=== PATIENT | male | born 1945 | race Caucasian/White ===

== ENCOUNTER 2018-08-09 11:35 | Emergency (ER) | payer MEDICARE, MEDICAID ==
[~2018-08-09] VITALS: Ht 188 cm; Wt 77.1 kg
[~2018-08-09 11:35] MED LIST: CYCLOBENZAPRINE10 MG PO; NORCO 5-325 TA1 EACH PO
[2018-08-09] MEDS ORDERED: ASPIRIN81 MG PO (11:50)
[2018-08-09] MEDS ORDERED: NITROSTAT0.4 MG SL (11:50)
[2018-08-09] MEDS ORDERED: ROBAFEN AC ORA473 ML PO (12:38)
[2018-08-09] MEDS ORDERED: DELTASONE20 MG PO (12:38)
[2018-08-09] MEDS ORDERED: LEVAQUIN500 MG PO (12:38)
[2018-08-09] MEDS ORDERED: VENTOLIN HFA18 GM INH (12:38)
--- NOTE | 2018-08-09 15:52 | EKG ---
[facility] [address] [place], [place] [address] Signed Normal sinus rhythm Right atrial enlargement Borderline ECG No previous ECGs available Confirmed by SAVI HERNDON DO ([id number]) on 08/09/2018 3:51:49 PM Electronically Signed By: SAVI HERNDON DO 08/09/18 1552 PATIENT NAME: RAMOS SANTOS Electrocardiogram DATE OF : 43 PHYSICIAN: SAVI HERNDON DO REPORT #: [id number] REPORT IS CONFIDENTIAL AND NOT TO BE RELEASED WITHOUT AUTHORIZATION
== END 2018-08-09 13:00 | disposition home or self-care (01) ==
LOC: ED 11:35
DX: J44.1 Chronic obstructive pulmonary disease with (acute) exacerbation (principal); F17.200 Nicotine dependence, unspecified, uncomplicated; Z79.82 Long term (current) use of aspirin
CPT/HCPCS: 71045; 80053; 84484; 85025; 93005; 93010; 94640; 99285

== ENCOUNTER 2020-04-08 12:58 | Emergency (ER) | payer MEDICARE ==
[~2020-04-08] VITALS: Ht 188 cm; Wt 77.1 kg
[~2020-04-08 12:58] MED LIST changes: +ASPIRIN81 MG PO; +DELTASONE20 MG PO; +LEVAQUIN500 MG PO; +NITROSTAT0.4 MG SL; +ROBAFEN AC ORA473 ML PO; +VENTOLIN HFA18 GM INH
--- NOTE | 2020-04-08 13:56 | EKG ---
[facility] [address] [place], [place] [address] Signed Normal sinus rhythm Normal ECG When compared with ECG of 09-AUG-2018 11:37, ST elevation now present in Inferior leads Confirmed by FELICIANO STRICKLAND MD ([id number]) on 04/08/2020 1:56:19 PM Electronically Signed By: FELICIANO STRICKLAND MD 04/08/20 1356 PATIENT NAME: RAMOS SANTOS Electrocardiogram DATE OF : 43 PHYSICIAN: FELICIANO STRICKLAND MD REPORT #: [id number] REPORT IS CONFIDENTIAL AND NOT TO BE RELEASED WITHOUT AUTHORIZATION
== END 2020-04-08 16:37 | disposition home or self-care (01) ==
LOC: ED 12:58
DX: R53.1 Weakness (principal); F17.200 Nicotine dependence, unspecified, uncomplicated; Z79.899 Other long term (current) drug therapy; Z79.82 Long term (current) use of aspirin
CPT/HCPCS: 80053; 84484; 85025; 93005; 93010; 96360; 99285-25; J7040

== ENCOUNTER 2020-11-30 10:04 | Inpatient (IN) | payer MEDICARE, MEDICAID ==
[~2020-11-30] VITALS: Ht 188 cm; Wt 75.2 kg
[2020-11-30] MEDS ORDERED: ISOSORBIDE MONO30 MG PO (12:59)
[2020-11-30] MEDS ORDERED: LISINOPRIL5 MG PO (12:59)
[2020-11-30] MEDS ORDERED: ATORVASTATIN CA20 MG PO (12:59)
[2020-11-30] MEDS ORDERED: AZITHROMYCIN250 MG PO (13:00)
[2020-11-30] MEDS ORDERED: VENTOLIN HFA18 GM INH (13:00)
--- NOTE | 2020-11-30 13:06 | NUR ---
COVID SAMPLE OBTAINED NO COMPLICATIONS, SENT TO [facility]
[2020-11-30] MEDS ORDERED: PREDNISONE20 MG PO (13:08)
[2020-11-30] MEDS ORDERED: ATORVASTATIN CA40 MG PO (13:09)
--- NOTE | 2020-11-30 13:15 | NUR ---
PT ARRIVED TO THE FLOOR AROUND THIS TIME. PT ABLE TO STAND PIVOT TO THE BED FROM ER STRETCHER. PT HAS CHEST TUBE IN PLACE AND APPEARS TO BE CLEAN/ DRY INTACT WITH NO CREPITUS NOTED.
--- NOTE | 2020-11-30 14:35 | NUR ---
THIS RN IN PTS ROOM TO PROVIDE PT WITH 1000MG OF TYLENOL AT THIS TIME FOR PTS PAIN 8/10 IN HIS LEFT CHEST. THIS RN TOOK VITALS, INSPECTED PTS CHEST TUBE, ALL TUBING CONNECTED PROPERLY AND NO CREPITUS NOTED IN OR AROUND INSETION SITE
--- NOTE | 2020-11-30 14:56 | NUR ---
Spoke with Sarbjit, who is very pleasant considering new chest tube placement. He lives with his son, daughter in law, and grandchild. He denies use of DME and plans on dc to his home when cleared by Dr. Salas.
[2020-11-30] MEDS ORDERED: MULTI VITAMIN1 EACH PO (15:02)
[2020-11-30] MEDS ORDERED: ASPIR-TRIN325 MG PO (15:02)
--- NOTE | 2020-11-30 15:04 | NUR ---
MED REC COMPLETE
--- NOTE | 2020-11-30 16:29 | EKG ---
[facility] [address] [facility] [place], [place] [address] Signed Normal sinus rhythm Normal ECG When compared with ECG of 08-APR-2020 13:21, No significant change was found Confirmed by SAVI HERNDON DO ([id number]) on 11/30/2020 4:29:11 PM Electronically Signed By: SAVI HERNDON DO 11/30/20 1629 PATIENT NAME: RAMOS SANTOS Electrocardiogram DATE OF : 43 PHYSICIAN: SAVI HERNDON DO REPORT #: [id number] REPORT IS CONFIDENTIAL AND NOT TO BE RELEASED WITHOUT AUTHORIZATION
--- NOTE | 2020-11-30 17:00 | NUR ---
THIS RN CALLED INTO PTS ROOM DUE TO PT HAVING INCREASED PAIN. THIS RN ASSESSED PTS CHEST TUBE TRAY AND SUCTION. THIS RN ASSESSED INSERTION SITE AND THOUGHT THAT PTS LEFT CHEST APPEARED TO BE SLIGHTLY SWOLLEN. THIS RN CALLED KORI CARCAMO INTO ROOM. KORI CARCAMO CALLED POULTRY BONER MURIEL CARCAMO AND KARISSA CARCAMO. ALL 4 RN'S INSPECTED SITE AND LISTENED TO PTS LUNGS.
--- NOTE | 2020-11-30 17:15 | NUR ---
THIS RN TO CALL TO GIVE HIM AN UPDATE ON PTS STATUS. GAVE THIS RN VERBAL ORDERS OVER THE PHONE TO GIVE PT PERCOCET 1-2 TABS 7.5/325 Q6 PRN.
--- NOTE | 2020-11-30 18:56 | NUR ---
THIS RN IN PTS ROOM TO REASSESS PTS PAIN. PT STATES THAT HE IS FELEING MUCH BETTER AT THIS TIME AFTER 1 PERCOCET.
--- NOTE | 2020-11-30 21:06 | NUR ---
PATIENT GIVEN 4MG PO DILAUDID FOR LEFT CHEST PAIN FROM CHEST TUBE, PAIN 8/10. NO SQ EMPHYSEMA NOTED, DRESSING DRY AND INTACT, CHEST TUBE BUBBLING AND REMAINS AT 80 ON WALL SUCTION. PATIENT REMAINS ON 2L/NC. WATER REFILLED AND PATIENT HAS NO OTHER NEEDS AT THIS TIME. CALL LIGHT IN REACH.
--- NOTE | 2020-11-30 22:27 | NUR ---
PATIENT WAS AWAKWE IN BED WHEN I ENTERED ROOM. VITALS AND I&O DONE. CALL LIGHT IN REACH. FRESH WATER REQUESTED AND GIVEN. DENIES ANY FURTHER NEEDS AT THIS TIME.
--- NOTE | 2020-11-30 23:00 | NUR ---
PATIENT RESTING QUIETLY IN FOWLERS POSITION, SATS 99% ON 2L/NC WITH A HR OF 58. PATIENT'S RESPIRATIONS ARE REGULAR AND EQUAL, EYES ARE CLOSED, CALL LIGHT IN REACH.
--- NOTE | 2020-12-01 01:00 | NUR ---
PATIENT CONTINUES TO REST QUIETLY, APPEARS IN NO DISTRESS, O2 SATS 100% ON 2L/NC, CHEST TUBE SITE C/D/I, RESPIRATIONS ARE EQUAL AND REGULAR, HR=56, CALL LIGHT IS IN REACH.
--- NOTE | 2020-12-01 02:23 | NUR ---
ASSISTED DONA HERNANDEZ. V/S AND I&O CHARTED BY DONA HERNANDEZ.
--- NOTE | 2020-12-01 02:29 | NUR ---
PATIENT GIVEN 4MG PO DILAUDID FOR LEFT CHEST PAIN 05/28. PATIENT HAS BEEN SLEEPING SINCE THE LAST DOSE OF DILAUDID AND JUST WOKE UP. PATIENT'S VITALS REMAIN STABLE. CALL LIGHT IS IN REACH.
--- NOTE | 2020-12-01 03:35 | NUR ---
PATIENT RESTING QUIETLY IN SEMI-FOWLERS POSITION, RESPIRATIONS REGULAR AND EVEN, EYES CLOSED, SATS 99% ON 2L/NC AND HR=58, CALL LIGHT IS IN REACH.
--- NOTE | 2020-12-01 05:22 | NUR ---
PATIENT'S PAIN IS AT 4/10 AND HE SAYS HE DOES NOT NEED PAIN MEDICATION JUST YET AND WILL CALL WHEN HE NEEDS IT. PATIENT HAS NO OTHER NEEDS AT THIS TIME. CALL LIGHT IN REACH.
--- NOTE | 2020-12-01 06:14 | NUR ---
PATIENT JUST GOT HIS MORNING CHEST X-RAY. PATIENT'S PAIN HAS REMAINED FAIRLY WELL CONTROLLED WITH MEDICATION THROUGH THE NIGHT, PATIENT HAS HAD 2 4MG TABS OF DILAUDID AND JUST HAD 1 PERCOCET FOR 7/10 LEFT CHEST PAIN. PATIENT IS DRINKING FLUIDS WELL AND VOIDING PER URINAL WITHOUT DIFFICULTY. CHEST TUBE REMAINS SECURED WITH 80 OF WALL SUCTION ATTACHED TO DRAINAGE DEVICE. PATIENT IS IN GOOD SPIRITS, ICE BAG REFILLED WITH ICE AND ICE WATER REFILLED WELL. NO OTHER NEEDS AT THIS TIME. CALL LIGHT IN REACH.
--- NOTE | 2020-12-01 09:15 | NUR ---
IN TO ASSESS PT THIS AM. PT AWAKE IN BED. REPORTS PAIN HAS DECREASED W/ PERCOCET @ 0600. PT REPORTS 4/10 DULL PAIN AT CHEST TUBE INSERTION SITE. VSS. LUNG SOUNDS DIMINISHED THROUGHOUT. WATER SEAL CHAMBER HAS SLOW BUBBLE. CHEST TUBE INSERTION SITE DRSG IS INTACT. IN BED EATING BREAKFAST AND CALL LIGHT IS IN REACH.
--- NOTE | 2020-12-01 11:00 | NUR ---
FARIBA RN IN TO MEDICATE PT C/O 05/28 PAIN AT CHEST TUBE INSERTION SITE. RN REPORTS PERCOCET WAS GIVEN.
--- NOTE | 2020-12-01 11:38 | NUR ---
this rn notified by pts son that pt was having some increased pain. this rn in pts room to assess pts pain level. pt states that his pain is 7/10. this rn discussed with pt that he could have percocet or diluadid or both at this time. pt stated that he wants to try 1 percocet at this time. this rn provided pt with a pillow under pts left arm to assist with holding his ice pack in place. pt states that he needs nothing else at this time. rn educated pt that he can call if the pain gets intolerable for the dialudid.
--- NOTE | 2020-12-01 13:04 | NUR ---
PT UP IN CHAIR. REPORTS PAIN IS MANAGEABLE AT THIS TIME, RATES IT 4/10. LUNG SOUNDS ARE DIMINISHED THROUGHOUT, PT SATING 99% ON 2 L NC. CALL LIGHT IN REACH.
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
--- NOTE | 2020-12-01 13:07 | OR ---
[facility] [address] [place], [place] [address] Signed DATE OF OPERATION: 11/30/2020 SURGEON: Zach Rico MD PREOPERATIVE DIAGNOSIS: Left-sided pneumothorax, associated with emphysema. POSTOPERATIVE DIAGNOSIS: Left-sided pneumothorax, associated with emphysema. PROCEDURE: Left chest tube placement. ANESTHESIA: Lidocaine 1%. INDICATIONS: This 75-year-old white man has emphysema and is patient of Dr. Cesar, was found on the outpatient chest x-ray to have a moderate-sized left-sided pneumothorax. He was sent to the emergency room, evaluated by Dr. Dsouaz in consultation, undertaken for chest tube placement and further management. The patient is not currently in extreme dyspnea, does have mild dyspnea and episodic cough. The risks of bleeding, infection, parenchymal injury to lung, failure to cure the problem, need for other indicated procedure, and so forth were all reviewed in detail. He understands and wished to proceed. FINDINGS: The pleural space was entered and a small chest tube was placed. A considerable amount of air leakage was noted initially left so later. A postprocedure chest x-ray shows good expansion of the lung without sign of complication. DESCRIPTION OF PROCEDURE: In the semi-erect position, the left arm was placed over the head and the left chest wall prepared with a Betadine solution and draped sterilely. Sterile gloves and gown and so forth were used as per protocol. Inferior and lateral to the left nipple, sixth rib was identified and 1% lidocaine injected directly over it and a bit on the top of it. The pleural space was anesthetized too. An aspiration on the syringe did show some air bubbles consistent with a left-sided pneumothorax. A small incision was made at the upper border of the rib with a #15 blade and using an introducer kit, a needle passed into the pleural space and subsequently a flexible wire. A dilator, and subsequently dilator and peel-away introducer were passed over the wire. The dilator and wire were Electronically Signed By: ZACH RICO MD 12/01/20 1307 PATIENT NAME: RAMOS SANTOS OPERATIVE REPORT DATE OF : 43 REPORT #: [id number] PHYSICIAN: ZACH RICO MD PCP: JARVIS CESAR MD REPORT IS CONFIDENTIAL AND NOT TO BE RELEASED WITHOUT AUTHORIZATION [facility] [address] [place], [place] [address] Signed removed. I previously inspected 12-Uzbek chest tube was passed through the peel-away introducer and was manipulated into the pleural space without prominent introducer removed. A mini Chinle tree was applied to the chest tube and the catheter secured to the skin with a 2-0 nylon suture. A fair amount of air was noted in the Pleur-evac device, which soon decreased and only episodically shows an air leak. The tube was secured to the Chinle tree with a zip tie as it was to the chest tube device. A small gauze was placed and OpSite dressings applied and pink tape inferiorly to provide two point tethering of the device. A postprocedure chest x-ray showed good expansion of the lung. No evidence of residual pneumothorax. No complication. Clinically, he felt much better. He will be admitted for further management. Zach Rico MD JM/MODL /[id number] cc: MD Eze Triplett MD Cynthia Sue Holmes, MD Copies: EZE DSOUZA MD, CYNTHIA SUE MD ~ Electronically Signed By: ZACH RICO MD 12/01/20 1307 PATIENT NAME: RAMOS SANTOS OPERATIVE REPORT DATE OF : 43 REPORT #: [id number] PHYSICIAN: ZACH RICO MD PCP: JARVIS CESAR MD REPORT IS CONFIDENTIAL AND NOT TO BE RELEASED WITHOUT AUTHORIZATION
--- NOTE | 2020-12-01 14:00 | NUR ---
Stopped to see pt, he is sleeping.
--- NOTE | 2020-12-01 14:21 | NUR ---
PT ALERT, ORIENTED AND RESPONDING TO TREATMENT. SON KELLIE IN VISITING WITH PT HAD GOOD VISIT, PT STATED HE FELT INFORMED AND WELL CARED FOR. PT REQUESTED PRAYER. LEFT G.POST AND WILL FOLLOW
--- NOTE | 2020-12-01 14:43 | NUR ---
PATIENT AWAKE IN CHAIR, VITALS AND I&OS CHARTED. FRESH ICE WATER PROVIDED. CALL LIGHT WITHIN REACH, NO OTHER NEEDS AT THIS TIME.
--- NOTE | 2020-12-01 15:30 | NUR ---
AMBULATED [place] X3 TODAY. PT TOLERATING WELL. PREMEDICATED W/ DILAUDID 4 MG PO. LUNG SOUNDS DIMINISHED THROUGHOUT. NO ACUTE CHANGES. SLIGHT BUBBLING IN WATER SEAL CHAMBER. PT UP IN CHAIR THROUGHOUT AFTERNOON. SON FREQUENTLY IN TO VISIT. PT IS EATING AND DRINKING WELL.
--- NOTE | 2020-12-01 18:30 | NUR ---
AMBULATED LARGE LOOP W/ PT AFTER PREMEDICATING W/ PERCOCET. TOLERATED MODERATELY WELL. SLIGHTLY SOB TOWARDS END OF ACTIVITY. RECOVERED QUICKLY. PT HAS BEEN ON ROOM AIR SINCE THIS MORNING. SATING MID-HIGH 90'S ON ROOM AIR. ICE PACK FOR ADDITIONAL PAIN TO LEFT SIDE. CHEST TUBE TO SUCTION AT 80 MMHG CONTINUOUS. IN BED FOR EVENING, NO OTHER NEEDS AT THIS TIME.
--- NOTE | 2020-12-01 18:30 | NUR ---
PATIENT AWAKE IN CHAIR, VITALS AND I&OS CHARTED. NO OTHER NEEDS AT THIS TIME
--- NOTE | 2020-12-01 19:20 | NUR ---
SHIFT REPORT RECEIVED CHRISSY JACOBS AT BEDSIDE. pt AWAKE AND RESTING IN BED, DRESSING TO LEFT CHEST TUBE INTACT, SMAL AMOUNT SEROSANGUINEOUS SHADOWING NOTED AT CHEST TUBE INSERTION SITE. RARE BUBBLING NOTED TO CHEST TUBE, WILL MONITOR. CONNECTED TO CONTINUOUS SUCTION, SET TO 80. pt HOMER NEEDS OR CONCERNS, CALL LIGHT IN REACH.
--- NOTE | 2020-12-01 20:01 | NUR ---
ASKED PATIENT IF HE WAS FEELING UP FOR A WALK. AMBULATION REFUSED BY PATIENT SAYING "I'VE BEEN ON 3 WALKS TODAY AND IM FEELING LIKE I AM READY FOR SLEEP". CALL LIGHT IN REACH. NO FUTHER NEEDS AT THIS TIME.
--- NOTE | 2020-12-01 22:15 | NUR ---
ASSESSMENT COMPLETE, NO SCHEDULED MEDS (SEE EMAR). pt AWAKE AND REPORTS TOLERABLE PAIN 5/10 AT CHEST TUBE INSERTION SITE/AREA TO LEFT LUNG, WILL MONITOR. pt HOMER NEED FOR PAIN MEDICATION AT THIS TIME, POC TO RETURN AFTER MIDNIGHT FOR PRN PERCOCET. VSS, pt DENIES NAUSEA. ON RA, O2 SAT AND HR WNL. INTERMITTENT BUBBLING NOTED TO CHEST TUBE, DRESSING INTACT WITH SMALL AMOUNT SEROSANGUINEOUS SHADOWING AT INSERTION SITE. CHEST TUBE TO CONTINUOUS SUCTION AT 80. NO FURTHER NEEDS AT THIS TIME. CALL LIGHT IN REACH.
--- NOTE | 2020-12-02 00:20 | NUR ---
IN ROOM TO ANSWER CALL LIGHT, PRN PERCOCET GIVEN FOR 7/10 PAIN AT CHEST TUBE INSERITON SITE. URINAL ALSO EMPTIED. NO FURTHER NEEDS, CALL LIGHT IN REACH. pt ON RA, O2 SAT AND HR WNL.
--- NOTE | 2020-12-02 05:34 | NUR ---
VSS AND I&O'S COMPLETE. ASSESSMENT ALSO DONE. PRN PAIN MEDICATION GIVEN FOR 6/10 PAIN AT CHEST TUBE INSERTION SITE. DRESSING UNCHANGED, SLOW CONTINUOUS SINGLE BUBBLE NOTED TO CHEST TUBE. ON RANGE FROM 1-5, BUBBLES ONLY NOTED ABOVE 1. WHEN ASKED HOW pt WAS FEELING, HE STATES, "OH I FEEL BETTER, MY BREATHING IS BETTER ALL THE TIME ". pT DENIES SOB AT REST, RTEMAINS ON RA. CPOX IN PLACE. LUNG SOUNDS DIMINISHED. CALL LIGHT IN REACH.
--- NOTE | 2020-12-02 09:43 | NUR ---
PT UP IN CHAIR THIS MORNING. DENIES PAIN AT THIS TIME. CHEST TUBE REMAINS TO CONTINUOUS SUCTION @ 80 MMHG. EATING AND DRINKING WELL. VOIDING ADEQUATELY. LUNG SOUNDS ARE CLEAR, DIMINISHED THROUGHOUT. SATING 95% ON ROOM AIR. STILL HAS SOME SOB W/ EXERTION. NO OTHER NEEDS AT THIS TIME. CALL LIGHT IN REACH.
--- NOTE | 2020-12-02 09:45 | NUR ---
Spoke with Sarbjit at request of Flor from admitting. [facility] She does not have the pt listed as a [facility] pt. Sarbjit states he is a [employer], but is not service connected. He served in the period right before [facility]. He has ever used [facility] services. He states he doing well today. He has been walking in the luu. Chest tube remains in place. No change in plan for dc.
--- NOTE | 2020-12-02 11:00 | NUR ---
PT AMBULATING LONG LOOP AROUND BOTH NURSES' STATION. TOLERATED WELL. UP IN CHAIR NOW. IVF INFUSING @ 85 MLS/HR. PAIN WELL CONTROLLED WITH PERCOCET. PREMEDICATED W/ DILAUDID PRIOR TO AMBULATION PAIN WAS 7/10 W/ ACTIVITY. 5/10 AT REST. PT DOING WELL IN CHAIR. CHEST TUBE DRESSING INTACT.
--- NOTE | 2020-12-02 11:13 | NUR ---
PT HAD JUST FINISHED AMBULATING IN [place] WITH STAFF. BACK IN , PT SITTING IN CHAIR VERY PLEASANT. STATED HE IS FEELING BETTER, ALITTLE BIT EASIER TO JUST SIMPLY BREATHE. GAVE BLESSING, WILL FOLLOW
--- NOTE | 2020-12-02 11:14 | NUR ---
STUDENT AND PATIENT WALKED 1 LAP AROUND MED SURG.
--- NOTE | 2020-12-02 15:52 | NUR ---
pt medicated w/ 7.5 mg percocet. Up for a walk w/ nursing staff. Tolerated well. Up in chair now. Chest tube drsg remains intact.
--- NOTE | 2020-12-02 18:15 | NUR ---
PT EATING AND DRINKING WELL. STEADY ON FEET W/ AMBULATION. VSS. LUNG SOUNDS CLEAR, SLIGHTLY DIMINISHED THROUGHOUT. PT REPORTS HE HAS NOT HAD A BM SINCE 11/29/20, SAYS HE USUALLY REGULAR, BM'S DAILY. CHERYL TRUJILLO & NAVEEN INITIATED D/T PT TAKING NARCOTICS PRN, TO AVOID CONSTIPATION. PT URINE OUTPUT HAS BEEN SUFFICIENT. CHEST TUBE IS NO LONGER TO SUCTION PER DR. RICO. ORDER. DRESSING REMAINS INTACT. PT'S PAIN HAS BEEN WELL MANAGED. AMBULATES FREQUENTLY. IN BED NOW, RATING PAIN 4/10 LEFT LATERAL CHEST. D5 LR INFUSING @ 85 MLS/HR INTO IV IN LFA. CALL LIGHT IN REACH.
--- NOTE | 2020-12-02 18:23 | NUR ---
TALKED W/ DR. RICO ABOUT PT'S ELEVATED LIVER ENZYMES ON 11/30. AST 71, ALT 138, ALK PHOS 183. PT DENIES ETOH USE AT HOME, STATES HE MAYBE DRINKS ONE DRINK EVERY COUPLE WEEKS. DENIES RUQ PAIN AFTER EATING WELL. NO NEW ORDERS. DR. RICO AWARE.
--- NOTE | 2020-12-02 20:46 | NUR ---
IN TO GET VITALS, I&OS DONE, COFFEE GIVEN, NO FURTHER NEED AT THIS TIME
--- NOTE | 2020-12-02 20:53 | NUR ---
IN ROOM TO ROUND CHARGE, pt AWAKE AND RESTING IN BED. APPEARS IN GOOD SPIRITS, DENIES NEEDS OR CONCERNS AT THIS TIME. PRIMARY RN RUDDY AT BEDSIDE. CALL LIGHT IN REACH.
--- NOTE | 2020-12-02 20:55 | NUR ---
Sitting up in bed, room air, L chest tube intact, no drainage noted. lungs dim at exp. no sob with exertion. IVF infusing RAC, patent. Independent inroom. C/o 5/10 L lateral chest/CT insertion site area. medicated with 2 Percocet po. voiding QS yellow urine, uses urinal. Fresh water and coffee given on request. call light at bedside, denies n/v.
--- NOTE | 2020-12-02 21:15 | NUR ---
CPOX ALARMING (x2) LOW O2 AT MID 80s AND PLUSE TIMEOUT, AJD SENSOR AND OBSERVED PT O2 RISE, SATS LOW TO MIS 90s AT THIS TIME, NO FURHTER NEEDS
--- NOTE | 2020-12-03 00:31 | NUR ---
RESTING, HOB ELEVATED, L CT IN PLACE DRESSING INTACT. IVF INFUSING, TOLERATING FLUIDS WELL, NO SOB
--- NOTE | 2020-12-03 02:17 | NUR ---
IN TO CHECK ON PT's URINAL, RECORDED ON BOARD, IV INFUSION NOTED COMPLETE AT THIS TIME, RN IN TO SETUP NEW LR, PT ASLEEP AT THIS TIME
--- NOTE | 2020-12-03 02:25 | NUR ---
RSTING, HOB ELEVATE, L CHEST TUBE TO GRAVITY AND WATER SEAL, NO DRAINAGE NOTED. IVF INFUSING W/O PROBLEMS, TOLERATING FLUIDS WELL, VOIDING QS
--- NOTE | 2020-12-03 02:42 | NUR ---
PT CPOX ALARMING, PULSE TIMEOUT, ASST PT TO DETAINGLE WIRES, CPOX O2 WNL, NO FURTHER NEEDS AT THIS TIME
--- NOTE | 2020-12-03 05:59 | NUR ---
Has slept, on room air, no sob with exertion. L chest tube in place to gravity and water seal. no discharge. Insertion site dressing intact. Toleratiang fluids and diet well, no n/v. Was medicated x1 with Percocet and will be emedicated again in a few minutes per c/o L CT site pain . CPOX in place. uses call light, voiding QS urine. IVF infusing w/o problems
--- NOTE | 2020-12-03 06:17 | NUR ---
TELEPHONE ORDER FOR REPEAT CHEST X RAY THIS MORNING REPEATED BACK TO VERIFY. ORDERS UPDATED.
--- NOTE | 2020-12-03 06:18 | NUR ---
medicated with Percocet per 7/10 L chest chesttube insertion site, no c/o sob. awake, drinking coffee and watching tv. IVF infusing w/o problems
--- NOTE | 2020-12-03 07:29 | NUR ---
Report from Brian Hernandez RN. Patient lying in bed, eyes closed. Respirations even and unlabored at this time. Call light in reach, bed rails up X2.
--- NOTE | 2020-12-03 08:46 | NUR ---
Alert and oriented. States he is feeling good this morning. Shortness of breath has improved. Chest tube remains in place. Dressing intact. Pain 5 or 6/10 this AM. AM medications administered. Takes without difficulty. Call light in reach. Bed rails up X2.
--- NOTE | 2020-12-03 10:24 | NUR ---
Talking on phone, denies pain.
--- NOTE | 2020-12-03 11:04 | NUR ---
Alert and oriented. Respirations even and unlabored. Chest tube remains to water seal. No drainage noted. Denies needs at this time.
--- NOTE | 2020-12-03 11:52 | NUR ---
Attempting to get out of bed again, alarm sounding. States he is going to [place]. Re-oriented to place. Assist to sit in recliner. Chair alarm in place.
--- NOTE | 2020-12-03 13:34 | NUR ---
Dr. Read in to see patient. Chest tube removed by Dr. Read.
[2020-12-03] MEDS ORDERED: ACETAMINOPHEN500 MG PO (13:41)
--- NOTE | 2020-12-03 15:01 | NUR ---
Assessment completed. Dressing to left chest wall remains on and intact. Denies shortness of breath. Lung sounds remain unchanged from this AM.
--- NOTE | 2020-12-03 17:34 | NUR ---
DC instructions given. Verbalizes understanding.
--- NOTE | 2020-12-04 11:27 | DS ---
[facility] [address], [place] [address] Signed ADMISSION DATE: 11/30/2020 DISCHARGE DATE: 12/03/2020 REASON FOR ADMISSION: This 75-year-old white man is a patient of Dr. Genet Cesar and is under therapy for COPD on an ongoing basis with him. He is known to have emphysema. He was sent to the hospital for a chest xray as he has been having some shortness of breath and mild left-sided chest pain. He was noted in the Radiology Department to have a moderate-sized left pneumothorax. He was directed to the emergency room, evaluated by Dr. Dsouza and consultation was undertaken with me. He is admitted for further evaluation and care. PERTINENT PHYSICAL EXAMINATION: Showed a tall, thin white man who looked to be in no particular distress. Trachea is midline. There was no jugular venous distention. Breath sounds were distant. Chest x-ray showed a moderate-sized pneumothorax on the left side without tracheal deviation. HOSPITAL COURSE: Consultation was undertaken in the emergency room at which time, a small caliber of chest tube was placed in the left pleural space without problem. This allowed for re-expansion of the lung. An episodic air leak was noted consistent with bleb disease from his emphysema. He was admitted to the hospital and given various pain medications as he did have a chest tube site pain (surprising considering the small size of the tube). Supplemental oxygen was administered to hasten resorption of any residual pneumothorax. He was monitored on a daily basis with chest x-rays, which showed a very tiny apical pneumothorax, which persisted and an episodic small air leak. The day prior to his discharge, the tube was changed from suction to water-seal. The following day (day of discharge), there was no sign of air leak and complete expansion of the lung. The chest tube was removed without problem. It is anticipated that the patient will be discharged home if a followup chest x-ray in 2 hours is normal. The patient is advised to avoid going to altitude (going in a plane or high-level mountain experience) for fear of recurrent pneumothorax. This should no longer be a concern after two weeks. An appointment is scheduled with Dr. Cesar on the Electronically Signed By: ZACH RICO MD 12/04/20 1127 PATIENT NAME: RAMOS SANTOS DISCHARGE SUMMARY DATE OF : 43 REPORT #: [id number] PHYSICIAN: ZACH RICO MD PCP: GENET CESAR MD REPORT IS CONFIDENTIAL AND NOT TO BE RELEASED WITHOUT AUTHORIZATION [facility] [address] [place] [id number] Signed December he tells me. He will not need to see me in my office under the circumstances. There are occasions where recurrent pneumothorax will require thoracoscopy with bleb resection and pleurodesis. I doubt that will be needed, but it is a consideration of course. I will be available to do that if needed. DISCHARGE MEDICATIONS: Include: 1. Tylenol 1000 mg p.o. q.6 hours as needed for pain. He will additionally continue his home medications, which include Nitrostat 0.4 mg sublingual p.r.n. chest pain. 2. Isosorbide mononitrate 30 mg tab extended release daily. 3. Lisinopril 5 mg p.o. daily. 4. Azithromycin 250 mg p.o. two tabs a day and subsequently followed by one tab a day. 5. Albuterol inhaler two puffs q.4 hours as needed for shortness of breath. 6. Prednisone 20 mg p.o. daily, complete course. 7. Atorvastatin 40 mg p.o. daily. 8. Aspirin 325 mg p.o. daily. 9. Multivitamin one tablet p.o. daily. DISCHARGE DIAGNOSES: 1. Left-sided spontaneous pneumothorax, mildly symptomatic, likely secondary to bleb disease related to chronic obstructive pulmonary disease. 2. Hypertension. FOLLOWUP PLAN: He will return to see Dr. Cesar on the 22 of December as planned. MD EULA Schrader/MODL /[id number] cc: MD Eze Triplett MD Electronically Signed By: ZACH RICO MD 12/04/20 1127 PATIENT NAME: RAMOS SANTOS DISCHARGE SUMMARY DATE OF : 43 REPORT #: [id number] PHYSICIAN: ZACH RICO MD PCP: GENET CESAR MD REPORT IS CONFIDENTIAL AND NOT TO BE RELEASED WITHOUT AUTHORIZATION [address] [address] Signed Copies: EZE DSOUZA MD ~ Electronically Signed By: ZACH RICO MD 12/04/20 1127 PATIENT NAME: RAMOS SANTOS DISCHARGE SUMMARY DATE OF : 43 REPORT #: [id number] PHYSICIAN: ZACH RICO MD PCP: GENET CESAR MD REPORT IS CONFIDENTIAL AND NOT TO BE RELEASED WITHOUT AUTHORIZATION
== END 2020-12-03 17:48 | disposition home or self-care (01) | DRG 191 ==
LOC: ED 10:04 → MS 12:11
PROVIDERS: ADMIT Surgery; ATTEND Surgery
PROC: 0W9B30Z Drainage of Left Pleural Cavity with Drainage Device, Percutaneous Approach (ICD-10-PCS; principal; 2020-11-30)
DX: J43.9 Emphysema, unspecified (principal); J93.12 Secondary spontaneous pneumothorax; Z20.822 Contact with and (suspected) exposure to COVID-19; I10 Essential (primary) hypertension; Z79.899 Other long term (current) drug therapy; Z79.82 Long term (current) use of aspirin
CPT/HCPCS: 32551; 71045; 80053; 83880; 85025; 93005; 93010; 99285-25; J7121; U0003

== ENCOUNTER 2021-02-01 10:18 | Emergency (ER) | payer MEDICARE, MEDICAID ==
[~2021-02-01] VITALS: Ht 188 cm; Wt 77.1 kg
[~2021-02-01 10:18] MED LIST changes: +ACETAMINOPHEN500 MG PO; +ASPIR-TRIN325 MG PO; +ATORVASTATIN CA20 MG PO; +ATORVASTATIN CA40 MG PO; +AZITHROMYCIN250 MG PO; +ISOSORBIDE MONO30 MG PO; +LISINOPRIL5 MG PO; +MULTI VITAMIN1 EACH PO; +PREDNISONE20 MG PO
== END 2021-02-01 13:29 | disposition home or self-care (01) ==
LOC: ED 10:18
DX: R79.89 Other specified abnormal findings of blood chemistry (principal); I25.2 Old myocardial infarction; J44.9 Chronic obstructive pulmonary disease, unspecified; Z87.891 Personal history of nicotine dependence; Z79.899 Other long term (current) drug therapy; Z79.82 Long term (current) use of aspirin
CPT/HCPCS: 74177; 80053; 81001; 83690; 85025; 99284-25; Q9967

== ENCOUNTER 2021-06-06 13:18 | Inpatient (IN) | payer MEDICARE, MEDICAID ==
[~2021-06-06] VITALS: Ht 188 cm; Wt 78.2 kg
--- OUTSIDE RECORDS SUMMARY | 2021-06-06 13:26 | XMS ---
PreManage Notification: RAMOS SANTOS Security Lead Atg Developer Events No recent Security Events currently on file CRITERIA MET - [facility] - 2 Visits in 30 Days CARE PROVIDERS REJI CHOW Internal Medicine: Pulmonary Disease 11/30/2020-Current PHONE: Unknown Romulo has no Care Guidelines for this patient. Care History Medical/Surgical 11/30/2020 [facility] - Patient is currently established with [facility]. If patient is seen in the ED during business hours. Please contact CHWs at [facility]. Care Recommendation: If this patient has had 5 or more Emergency Department visits in the last 12 months.\T\nbsp; Patient will require education on the scope and purpose of the ED as an acute care provider not a Primary Care Provider and should not be utilized for chronic conditions.\T\nbsp; These are guidelines and the provider should exercise clinical judgment when providing care. E.D. VISIT COUNT (12 MO.) 1 [facility] 3 [facility] TOTAL 4 NOTE: Visits indicate total known visits. ED/UCC VISIT TRACKING (12 MO.) 06/06/2021 13:19 [facility] TYPE: Emergency COMPLAINT: - SOB 06/03/2021 02:14 [facility] Marissa SALCEDO TYPE: Emergency DIAGNOSES: - head lac - Laceration without foreign body of scalp, initial encounter - Ear Laceration - Contusion of left front wall of thorax, initial encounter - Rib Injury - Concussion with loss of consciousness of 30 minutes or less, initial encounter - Unspecified fall, initial encounter - Laceration without foreign body of left elbow, initial encounter - Traumatic subdural hemorrhage with loss of consciousness of unspecified duration, initial encounter - Laceration without foreign body of left ear, initial encounter - Other specified disorders of bladder 02/01/2021 10:18 [facility] [place] TYPE: Emergency COMPLAINT: - CLEAR STOOLS DIAGNOSES: - Other specified abnormal findings of blood chemistry - care home (current) use of aspirin - Other mcc (current) drug therapy - Old myocardial infarction - Personal history of nicotine dependence - Chronic obstructive pulmonary disease, unspecified 11/30/2020 10:05 [facility] [place] TYPE: Emergency COMPLAINT: - SHOB INPATIENT VISIT TRACKING (12 MO.) 11/30/2020 12:11 [facility] [place] TYPE: Medical Surgical COMPLAINT: - LEFT PNEUMOTHORAX DIAGNOSES: - Essential (primary) hypertension - Secondary spontaneous pneumothorax - Essential (primary) hypertension - Emphysema, unspecified - termite exterminator (current) use of aspirin - Secondary spontaneous pneumothorax - Other mcc (current) drug therapy - Other mcc (current) drug therapy - Other pneumothorax - Emphysema, unspecified - care home (current) use of aspirin [email or web address]
[2021-06-06] MEDS ORDERED: ATORVASTATIN CA40 MG PO (13:36)
--- NOTE | 2021-06-06 17:35 | EKG ---
[facility] [address] [facility] [place], [place] [address] Signed Normal sinus rhythm Normal ECG When compared with ECG of 30-NOV-2020 10:28, No significant change was found Confirmed by FELICIANO STRICKLAND MD ([id number]) on 06/06/2021 5:35:16 PM Electronically Signed By: FELICIANO STRICKLAND MD 06/06/21 1735 PATIENT NAME: RAMOS SANTOS Electrocardiogram DATE OF : 43 PHYSICIAN: FELICIANO STRICKLAND MD REPORT #: [id number] REPORT IS CONFIDENTIAL AND NOT TO BE RELEASED WITHOUT AUTHORIZATION
== END 2021-06-10 12:10 | disposition swing bed (61) | DRG 183 ==
LOC: ED 13:18 → MS 13:20
PROVIDERS: ADMIT Internal Medicine; ATTEND Internal Medicine
DX: S22.42XA Multiple fractures of ribs, left side, initial encounter for closed fracture (principal); J96.01 Acute respiratory failure with hypoxia; F10.129 Alcohol abuse with intoxication, unspecified; Z20.822 Contact with and (suspected) exposure to COVID-19; J44.9 Chronic obstructive pulmonary disease, unspecified; I25.10 Atherosclerotic heart disease of native coronary artery without angina pectoris; E78.5 Hyperlipidemia, unspecified; N32.9 Bladder disorder, unspecified; N18.32 Chronic kidney disease, stage 3b; I25.2 Old myocardial infarction; F17.210 Nicotine dependence, cigarettes, uncomplicated; Z79.899 Other long term (current) drug therapy; Z79.82 Long term (current) use of aspirin; Z98.890 Other specified postprocedural states; W19.XXXA Unspecified fall, initial encounter
CPT/HCPCS: 70450; 71046; 71101; 71260; 80048; 80053; 81001; 85025; 85610; 93005; 93010; 94640; 94760; 97116; 97162; 97165; 97166; 97530; 97535; 99285-25; 99406; A9270; C9803; G0378; J1885; J7121; U0003

== ENCOUNTER 2021-06-10 10:10 | Inpatient (IN) | payer MEDICARE, MEDICAID ==
[~2021-06-10] VITALS: Ht 188 cm; Wt 78.0 kg
--- NOTE | 2021-06-10 10:15 | NUR ---
PER MD UPDATE AND AM MEETING PATIENT TO ADMIT TO [facility] TRANSITIONAL CARE PROGRAM TODAY. IN TO SEE PATIENT, PATIENT SLEEPING DOES NOT AWAKEN TO VOICE. CASE MANAGEMENT ASSESSMENT COMPLETED WITH ASSIST FROM PRIOR ASSESSMENT. WILL CONTINUE TO FOLLOW UP WITH PATIENT DURING HIS TRANSITIONAL CARE VISIT.
--- NOTE | 2021-06-10 10:30 | NUR ---
MED REC COMPLETE
--- NOTE | 2021-06-10 15:15 | NUR ---
PT RESTING IN BED SLEEPING RR EVEN, NO DISTRESS NOTED
--- NOTE | 2021-06-10 16:24 | NUR ---
OCCUPATIONAL THERAPY OBSERVED PATIENT WHILE TAKING A SHOWER. PATIENT DID HIS OWN SHOWER. PATIENT IS LAYING BACK DOWN IN BED.
--- NOTE | 2021-06-10 16:43 | NUR ---
PT UP TO SHOWER WITH PROPERTY CONSULTANT AND OCCUPATIONAL THERAPY. PT REPORTS PAIN 6/10, TWO OXYCODONE PO PRN ADMINISTERED.
--- NOTE | 2021-06-10 17:40 | NUR ---
PT HAS BEEN TRANSITIONED TO SWINGBED FOR THERAPIES. HIS PAIN HAS BEEN HIGHER THIS AM THAN YESTURDAY, ADDED STEROID DOSE ONE TIME TODAY TO HELP WITH INFLAMMATION PAIN. HE HAS SHOWERED TODAY, PAIN IS BETTER THIS EVENING.
--- NOTE | 2021-06-10 18:28 | NUR ---
SBA PATIENT TO BR. WILL CALL WHEN READY.
--- NOTE | 2021-06-10 19:15 | NUR ---
SHIFT REPORT FROM NURSE SHEIKH. PT IS SLEEPING IN BED NURSING STAFF ENTERS ROOM. NO APPARENT NEEDS AT THIS TIME. CALL LIGHT WITHIN REACH.
--- NOTE | 2021-06-10 22:20 | NUR ---
IN TO GET VITALS, EMPTIED URINAL, PROVIDED PT WITH COFFEE AT THIS TIME, NO FURTHER NEEDS
--- NOTE | 2021-06-10 22:30 | NUR ---
IN ROOM FOR ASSESSMENT, VITALS, PRN MEDS. PT IS AWAKE AND TALKATIVE, SITTING UP IN BED. VSS. PT REPORTS IMPROVEMENT IN ABILITY TO TAKE DEEP BREATHS SINCE ADMINISTRATION OF STEROID. PT REPORTS PAIN 6/10 AT THIS TIME; PRN OXYCODONE 10MG PO ADMINISTERED AT THIS TIME. ASSESSMENT WNL. LIDOCAINE AND NICODERM PATCHES REMOVED. PT USED I.S. DURING ASSESSMENT. PT REQUESTS CUP OF COFFEE WHICH IS PROVIDED. URINAL AND BEDSIDE TABLE ALONG WITH CALL LIGHT WITHIN REACH.
--- NOTE | 2021-06-11 00:41 | NUR ---
CALL LIGHT ANSWERED. SBA TO BSC. PT URINATED 1200ML CLEAR YELLOW URINE. RETURNED TO BED; PRN PERCOCET ADMINISTERED FOR 7/10 BACK PAIN. CALL LIGHT AND BEDSIDE TABLE WITHIN REACH. FRESH WATER PROVIDED. NO FURTHER NEEDS AT THIS TIME.
--- NOTE | 2021-06-11 02:06 | NUR ---
CHECKED ON PT. PT IS SLEEPING; EYES CLOSED, EVEN UNLABORED BREATHING NOTED. CALL LIGHT WITHIN REACH.
--- NOTE | 2021-06-11 05:17 | NUR ---
PT APPEARS TO HAVE NOT SLEPT VERY MUCH THIS NIGHT WAS AWAKE OFTEN WHEN THIS NURSE PASSED BY ROOM. PT IS SITTING UP IN BED WATCHING TV. CALL LIGHT WITHIN REACH.
--- NOTE | 2021-06-11 06:28 | NUR ---
IN ROOM TO GET BREAKFAST ORDER. PT REPORTS SLEEPING FROM 11PM UNTIL 0200AM. DRINKING COFFEE NOW. CALL LIGHT WITHIN REACH.
--- NOTE | 2021-06-11 09:04 | NUR ---
PT AWAKE IN ROOM. PT IN BED AND SAYS WILL GO TO CHAIR BEFORE LUNCH. URINAL EMPTIED AND FRESH ICE WATER GIVEN. CALL LIGHT IS WITHIN REACH. WHITE BOARD UPDATED. NO FURTHER NEEDS AT THIS TIME.
--- NOTE | 2021-06-11 10:17 | NUR ---
PATIENT SITTING UP IN BED AT THIS TIME. WARM WASHCLOTH GIVEN. ORAL CARE SUPPLIES AT SINK, PATIENT SAID HE WOULD DO ORAL CARE NEXT TIME HE IS UP. PATIENT REFUSED SHOWER. VITALS AND I&O'S CHARTED. CALL LIGHT IN REACH. NO FURTHER NEEDS AT THIS TIME.
--- NOTE | 2021-06-11 13:03 | NUR ---
Patient encouraged to ambulate to restroom and eat meals in chair. Patient receptive to plan of care. Fresh water provided. Patient reports left rib pain; prn pain medication in use. Patient denies sob at rest. No current needs. Personal supplies and call light within reach.
--- NOTE | 2021-06-11 14:34 | NUR ---
Oxycodone 10mg po admin for reports of 7/10 left rib pain. Patient encouraged to use IS frequently.
--- NOTE | 2021-06-11 16:53 | NUR ---
BRITNEY from Dr. Borden to removed two sutures from left scalp wound. Two sutures removed from healing left scalp wound at this time; pt tolerated well. Wound site closed, healing with old dried blood noted.
--- NOTE | 2021-06-11 19:15 | NUR ---
SHIFT REPORT RECEIVED FROM KADEEM GARCIA AT BEDSIDE. pt AWAKE AND RESTING IN BED. HOLDING KLEENEX TO RIGHT EAR, PER REPORT pt HAS BEEN PICKING AT EAR. SUTURES IN PLACE, WILL MONITOR. NO FURTHER NEEDS, CALL LIGHT IN REACH.
--- NOTE | 2021-06-11 21:20 | NUR ---
IN TO GET VITALS, COFFEE PROVIDED AND ICE WATER REFILLED
--- NOTE | 2021-06-11 22:20 | NUR ---
ASSESSMENT COMPLETE, SCHEDULED PATCHES REMOVED AND PRN PAIN MEDICATION GIVEN FOR 6-05/28 PAIN R/T FRACTURED RIBS. pt COMPLIANT WITH CARE AND CALLS APPROPRIATELY. DENIES NAUSEA, COFFEE AT BEDSIDE. CALL LIGHT IN REACH.
--- NOTE | 2021-06-11 23:59 | NUR ---
pt RESTING IN BED WITH EYES CLOSED, RR EVEN AND UNLABORED. NO DISTRESS NOTED, pt APPEARS COMFORTABLE AND RELAXED. CALL LIGHT IN REACH.
--- NOTE | 2021-06-12 01:42 | NUR ---
pt RESTING IN BED WITH EYES CLOSED, RR EVEN AND UNLABORED. NO DISTRESS NOTED, pt APPEARS COMFORTABLE AND RELAXED. CALL LIGHT IN REACH.
--- NOTE | 2021-06-12 05:51 | NUR ---
prn pain medication given for 5/10 pain in left ribs, see emar. no further needs, call light in reach.
--- NOTE | 2021-06-12 07:38 | NUR ---
Patient awake, alert and oriented x3. Patient reports continued left rib pain; prn pain medication in use. Patient has notable sob. Breakfast orderered. No current needs. Personal supplies and call light within reach.
--- NOTE | 2021-06-12 08:07 | NUR ---
Patient up in chair eating breakfast, tolerating well. No distress and or needs. Personal supplies and call light within reach.
--- NOTE | 2021-06-12 10:05 | NUR ---
Patient showered. Physical therapy in working with patient. No needs at this time. Call light within reach.
--- NOTE | 2021-06-12 11:39 | NUR ---
Patient doing well this afternoon, up to chair at this time. Patient denies needs. Personal supplies and call light within reach.
--- NOTE | 2021-06-12 14:02 | NUR ---
PATIENT IN CHAIR FOR LUNCH. PATIENT IN BED AT THIS TIME, IND IN ROOM. VITALS AND I&O'S CHARTED. FRESH WATER AND COFFEE GIVEN. CALL LIGHT IN REACH. NO FURTHER NEEDS AT THIS TIME.
--- NOTE | 2021-06-12 15:02 | NUR ---
THIS RN IN TO CHECK ON PT. PT SITTING IN BED WATCHING TV ALERT AND ORIENTED. PT DENIES THE NEED FOR PAIN MEDICATION AT THIS TIME STATING ITS AT A TOLERABLE LEVEL. COFFEE PROVIDED TO PT PER HIS REQUEST. PT REPORTS NO FURTHER NEEDS WHEN ASKED AT THIS TIME, WILL CONTINUE PLAN OF CARE. CALL LIGHT IN REACH, BED IN LOWEST POSITON.
--- NOTE | 2021-06-12 17:07 | NUR ---
THIS RN IN TO CHECK ON PT AND ADMINISTER SCHEDULED MEDICATIONS. PT LAYING IN BED AWAKE AND ALERT WATCHING TV. MEDICATIONS ADMINISTERED (SEE MAR) AND DINNER BROUGHT TO PT. PT NOW EATING DINNER AT THIS TIME. PT REPORTS NO FURTHER NEEDS AND DENIES THE NEED FOR PAIN MEDICATION AT THIS TIME, WILL CONTINUE PLAN OF CARE. CALL LIGHT WITHIN REACH.
--- NOTE | 2021-06-12 18:09 | NUR ---
FRESH COFFEE GIVEN. CALL LIGHT WITHIN REACH. NO FURTHER NEEDS AT THIS TIME.
--- NOTE | 2021-06-12 18:21 | NUR ---
THIS RN IN TO CHECK ON PT. PT STATED HE WAS HAVING 5/10 PAIN IN HIS RIBS AND REQUESTED PRN PAIN MEDICATION. TWO 5MG TABLETS OF OXYCODONE ADMINISTERED AT THIS TIME FOR PAIN. PT ALSO PROVIDED WITH WATER. PT REPORTS NO FURTHER NEEDS AT THIS TIME WHEN ASKED, WILL CONTINUE PLAN OF CARE. CALL LIGHT WITHIN REACH, BED IN LOWEST POSITION.
--- NOTE | 2021-06-12 19:05 | NUR ---
SHIFT REPORT RECEIVED FROM DAYSHIFT DONA KNIGHT AT BEDSIDE. pt RESTING QUIETLY IN BED, DENIES NEEDS OR CONCERNS. RR EVEN AND UNLABORED, NO DISTRESS NOTED. CALL LIGHT IN REACH.
--- NOTE | 2021-06-12 21:19 | NUR ---
ASSESSMENT COMPLETE, SCHEDULED MEDS GIVEN (SEE EMAR). pt REPORTS TOLERABLE 5/10 PAIN R/T RIB FRACTURES. DENIES NAUSEA. IV SITE WNL, FLUSHES EASILY. NO NEEDS AT THIS TIME, CALL LIGHT IN REACH. VSS, I&O'S ALSO DONE.
--- NOTE | 2021-06-12 23:47 | NUR ---
pt RESTING IN BED, AWAKE. APPEARS RELAXED, DENIES NEEDS OR CONCERNS. CALL LIGHT IN REACH.
--- NOTE | 2021-06-13 02:39 | NUR ---
pt RESTING QUIETLY IN BED, EYES CLOSED. RR EVEN AND UNLABORED. NO DISTRESS NOTED. CALL LIGHT IN REACH.
--- NOTE | 2021-06-13 05:20 | NUR ---
I&O'S COMPLETE, pt AWOKE TO VOICE. REQUESTING COFFEE, NO FURTHER NEEDS. CALL LIGHT IN REACH.
--- NOTE | 2021-06-13 07:36 | NUR ---
REPORT RECIEVED FROM SHENG NGUYỄN RN.
--- NOTE | 2021-06-13 07:57 | NUR ---
MORNING ASSESSMENT DONE. PATIENT UP TO CHAIR FOR BREAKFAST WITH STANDBY ASSIST. PATIENT RATES LEFT RIB PAIN 3/10 AND INDICATED THAT HE IS FEELING REALLY WELL. LINENS FRESHENED ON BED.
--- NOTE | 2021-06-13 09:38 | NUR ---
PT appeared to be in good spirits, and talked excitedly about leaving sooner than originally expected. Prayed for continued healing and progress.
--- NOTE | 2021-06-13 09:41 | NUR ---
PATIENT WAS IN CHAIR FOR BREAKFAST. PATIENT NOW IN BED GETTING READY TO WITH OT. OT IN ROOM. VITALS AND I&O'S CHARTED. CALL LIGHT IN REACH. NO FURTHER NEEDS AT THIS TIME.
--- NOTE | 2021-06-13 09:54 | NUR ---
PATIENT DRESSED AND UP WORKING WITH OT. MORNING MEDICATIONS GIVEN.
--- NOTE | 2021-06-13 10:00 | NUR ---
Spoke with Sarbjit. Updated I received visit from OT and they have signed off and PT will work with him later today. He would like to dc to home, informed I will give him the letter of notice with dc with a survey. Pt would like to dc to home tomorrow. He denies needs, states he is no longer needing his walker. Will Fu with PT to see if they sign off also for plan for dc tomorrow. Dr. Patel updated.
--- NOTE | 2021-06-13 11:05 | NUR ---
PATIENT WORKED WITH PHYSICAL THERAPY, AMBULATING INDEPENDANTLY IN THE HALLWAY WITH NO WALKER.
--- NOTE | 2021-06-13 12:31 | NUR ---
PATIENT UP IN BED, ATE 100% OF LUNCH. PATIENT RATES RIB PAIN 0/10 AT THIS TIME. PATIENT DENIES OTHER NEEDS.
--- NOTE | 2021-06-13 13:47 | NUR ---
PATIENT IN BED RESTING WITH EYES CLOSED. I&O'S CHARTED. PATIENT HAS FRESH WATER AT BEDSIDE. CALL LIGHT IN REACH.
--- NOTE | 2021-06-13 15:25 | NUR ---
SON IN TO SEE PATIENT. DISCUSSED HIS DAD DISCHARGING TOMORROW. SON INDICATED THAT HE WOULD BE AVAILABLE TO TRANSPORT FATHER HOME AT 3PM.
--- NOTE | 2021-06-13 17:19 | NUR ---
PATIENT SITTING UP IN BED WATCHING TV. IND. IN ROOM. FRESH COFFEE GIVEN. CALL LIGHT IN REACH. NO FURTHER NEEDS AT THIS TIME.
--- NOTE | 2021-06-13 18:11 | NUR ---
CALL FROM PATIENT'S SON, HE CAN LAB COURIER HIS FATHER FOR TRANSPORT HOME AT 1:30PM TOMORROW.
--- NOTE | 2021-06-13 19:20 | NUR ---
REPORT RECEIVED FROM DAY SHIFT RN. PT LYING IN BED ALERT AND ORIENTED. DENIES NEEDS AT THIS TIME. WHITE BOARD UPDATED. CALL LIGHT IN REACH.
--- NOTE | 2021-06-13 21:16 | NUR ---
EVENING ASSESSMENT COMPLETE. PT DENIES PAIN OR SOB. BRUISING NOTED ON LEFT SIDE. VS WNL. I&O COMPLETE. FRESH WATER AND COFFEE PROVIDED. EVENING SNACK PROVIDED. PT DENIES QUESTIONS OR CONCERNS. CALL LIGHT IN REACH.
--- NOTE | 2021-06-13 22:07 | NUR ---
PATIENT CALLED FOR COFFEE. PROVIDED.
--- NOTE | 2021-06-14 00:03 | NUR ---
PT SITTING UP IN BED DRAWING. DENIES NEEDS AT THIS TIME. CALL LIGHT IN REACH.
--- NOTE | 2021-06-14 05:50 | NUR ---
PT AWAKE WHEN THIS RECREATION SUPERINTENDENT ENTERS ROOM. REPORTS HE SLEPT WELL FOR A FEW HOURS. DENIES PAIN OR SOB. COFFEE AND FRESH WATER PROVIDED. NO FURTHER NEEDS AT THIS TIME.
--- NOTE | 2021-06-14 07:10 | NUR ---
Report received from Becca CARCAMO. Pt resting in bed with no needs identified at this time, will continue plan of care.
--- NOTE | 2021-06-14 08:13 | NUR ---
Scheduled medications administered, assessment complete. Pt reports no pain or needs. Lung sounds clear and equal bilat, HRR, bowel tones active. Pt reports BM this am. Lidocaine patch applied to L hip area and nicotine patch to L arm. Pt A+O, on room air. Breakfast tray cleared, no further needs. Plan of care reviewed, pt agreeable. Call light in reach.
--- NOTE | 2021-06-14 08:37 | NUR ---
PT WAS SITTING IN CHAIR. UPDATED WHITEBOARD. OFFERED WARM CLOTH FOR PT'S FACE, PT REFUSED. [facility] LIGHT WAS WITHIN REACH. NO FURTHER NEEDS AT THIS TIME.
--- NOTE | 2021-06-14 11:10 | NUR ---
Spoke with Sarbjit, he cont. to plan for dc today. Dr. Patel in the room. Pt denies needs and independent in room. Son will pick him up at 13...
[2021-06-14] MEDS ORDERED: NICOTINE PATCH1 EACH TD (11:22)
[2021-06-14] MEDS ORDERED: LIDOCAINE1 EACH TD (11:23)
[2021-06-14] MEDS ORDERED: DEXAMETHASONE2 MG PO (11:26)
--- NOTE | 2021-06-14 13:15 | NUR ---
Discharge teaching provided to patient who teaches back to this RN and verbalizes understanding of all teaching. Vital signs completed and WNL. Pt dressed and has no IV. Stable condition with no needs identified. Pt's son to miner pick patient.
== END 2021-06-14 13:40 | disposition home or self-care (01) | DRG 185 ==
LOC: MS 10:10
PROVIDERS: ADMIT Internal Medicine; ATTEND Internal Medicine
DX: S22.42XA Multiple fractures of ribs, left side, initial encounter for closed fracture (principal); I25.10 Atherosclerotic heart disease of native coronary artery without angina pectoris; J44.9 Chronic obstructive pulmonary disease, unspecified; E78.5 Hyperlipidemia, unspecified; W18.30XA Fall on same level, unspecified, initial encounter; N18.32 Chronic kidney disease, stage 3b; N32.9 Bladder disorder, unspecified
CPT/HCPCS: 97110; 97112; 97116; 97535; A9270; J1650; J8540

== ENCOUNTER 2021-11-21 12:48 | Emergency (ER) | payer MEDICARE, MEDICAID ==
[~2021-11-21] VITALS: Ht 188 cm; Wt 77.6 kg
[~2021-11-21 12:48] MED LIST changes: +DEXAMETHASONE2 MG PO; +LIDOCAINE1 EACH TD; +NICOTINE PATCH1 EACH TD
[2021-11-21] MEDS ORDERED: PREDNISONE20 MG PO (15:41)
[2021-11-21] MEDS ORDERED: VENTOLIN HFA18 GM INH (15:51)
== END 2021-11-21 16:45 | disposition home or self-care (01) ==
LOC: ED 12:48
DX: J44.1 Chronic obstructive pulmonary disease with (acute) exacerbation (principal); J10.1 Influenza due to other identified influenza virus with other respiratory manifestations; F17.200 Nicotine dependence, unspecified, uncomplicated; I25.2 Old myocardial infarction; Z20.822 Contact with and (suspected) exposure to COVID-19; Z79.52 Long term (current) use of systemic steroids; Z79.899 Other long term (current) drug therapy; Z79.82 Long term (current) use of aspirin
CPT/HCPCS: 71045; 80048; 85025; 94640; 94664; 96374; 99285-25; C9803; J2930; U0003

== ENCOUNTER 2022-04-14 14:18 | Emergency (ER) | payer MEDICARE, OTHER ==
[~2022-04-14] VITALS: Ht 188 cm; Wt 77.7 kg
--- NOTE | 2022-04-15 21:14 | EKG ---
[facility] [address] [facility] [place], [place] [address] Signed Normal sinus rhythm Normal ECG When compared with ECG of 06-JUN-2021 14:55, No significant change was found Confirmed by FELICIANO STRICKLAND MD ([id number]) on 04/15/2022 9:14:42 PM Electronically Signed By: FELICIANO STRICKLAND MD 04/15/222113 PATIENT NAME: RAMOS SANTOS Electrocardiogram DATE OF : 43 PHYSICIAN: FELICIANO STRICKLAND MD REPORT #: [id number] REPORT IS CONFIDENTIAL AND NOT TO BE RELEASED WITHOUT AUTHORIZATION
--- NOTE | 2022-04-15 21:15 | EKG ---
[facility] [address] [facility] [place], [place] [address] Signed Normal sinus rhythm Normal ECG When compared with ECG of 14-APR-2022 14:31, (Unconfirmed) No significant change was found Confirmed by FELICIANO STRICKLAND MD ([id number]) on 04/15/2022 9:15:37 PM Electronically Signed By: FELICIANO STRICKLAND MD 04/15/222114 PATIENT NAME: DANIELLERAMOS Electrocardiogram DATE OF : 43 PHYSICIAN: FELICIANO STRICKLAND MD REPORT #: [id number] REPORT IS CONFIDENTIAL AND NOT TO BE RELEASED WITHOUT AUTHORIZATION
== END 2022-04-14 18:47 | disposition home or self-care (01) ==
LOC: ED 14:18
DX: R55 Syncope and collapse (principal); I25.2 Old myocardial infarction; Z85.51 Personal history of malignant neoplasm of bladder; F17.200 Nicotine dependence, unspecified, uncomplicated; Z79.899 Other long term (current) drug therapy; Z79.82 Long term (current) use of aspirin
CPT/HCPCS: 36415; 70450; 71045; 80048; 81001; 83735; 84484; 85025; 93005; 93010; 99285-25

== ENCOUNTER 2023-12-03 17:06 | Emergency (ER) | payer MEDICARE, OTHER ==
[~2023-12-03] VITALS: Ht 188 cm; Wt 69.0 kg
[~2023-12-03 17:06] MED LIST changes: +INCRUSE ELLI62.5 MCG INH
[2023-12-03 19:55] LABS: BILIRUBIN, URINE POSITIVE (negative); BLOOD/HGB, URINE LARGE (Negative); KETONE, URINE SMALL (Negative); LEUK ESTERASE, URINE MODERATE (negative); NITRITE, URINE POSITIVE (negative)
[2023-12-03 20:03] LABS: RED BLOOD CELLS, URINE >50 /hpf (0-5)
[2023-12-03 20:04] LABS: BACTERIA, URINE NONE SEEN /hpf (negative); CASTS, URINE NONE SEEN \\lpf; COLLECTION TYPE, URINE CLEAN CATCH; CRYSTALS, URINE NONE SEEN (0-1+); EPITHELIAL CELLS, URINE NONE SEEN /lpf (0-1+); REFLEX CULTURE, URINE Yes (No)
[2023-12-03] MEDS ORDERED: MACROBID 100 M100 MG PO (20:11)
[2023-12-03 20:16] LABS: BASOPHILS 1.6 % (0-2); HEMOGLOBIN 13.8 g/dL (12.0-18.0); LYMPHOCYTES 18.5 % (24-44); MCH 30.5 (27-36); MCHC 33.6 g/dl (30-36); MCV 90.7 fl (81-99); MONOCYTES 7.6 % (0-12); NEUTROPHILS 71.3 % (39-80); PLATELET COUNT 215 K/uL (140-440); RBC 4.52 M/ul (4.3-5.7)
[2023-12-03 20:29] LABS: ALBUMIN 3.6 g/dL (3.4-5.0); ALBUMIN/GLOBULIN RATIO 0.82 (1.1-2.4); ANION GAP 13.2 (7-21); BILIRUBIN, TOTAL 0.4 ng/dL (0.2-1.0); BUN/CREATININE RATIO 17.81 (6.0-28.6); CALCIUM 9.2 mg/dL (8.5-10.1); CREATININE, SERUM 1.74 mg/dL (0.70-1.30); POTASSIUM 5.2 mmol/L (3.5-5.1)
[2023-12-03 20:42] VITALS: BP 173/61
== END 2023-12-03 20:42 | disposition home or self-care (01) ==
LOC: ED 17:06
PROVIDERS: Internal Medicine
DX: N39.0 Urinary tract infection, site not specified (principal); I25.2 Old myocardial infarction; F17.200 Nicotine dependence, unspecified, uncomplicated; Z79.899 Other long term (current) drug therapy; Z79.82 Long term (current) use of aspirin
CPT/HCPCS: 36415; 80053; 81001; 85025; 87088; 99283

== ENCOUNTER 2024-03-26 16:57 | Emergency (ER) | payer MEDICARE, OTHER ==
[~2024-03-26] VITALS: Ht 188 cm; Wt 62.0 kg
[~2024-03-26 16:57] MED LIST changes: +MACROBID 100 M100 MG PO; +METOPROLOL TART25 MG PO; +TRAMADOL HCL50 MG PO
[2024-03-26 17:23] LABS: BASOPHILS 0.9 % (0-2); EOSINOPHILS 2.1 % (0-6); HEMATOCRIT 39.3 % (35.0-50.0); HEMOGLOBIN 12.6 g/dL (12.0-18.0); LYMPHOCYTES 18.7 % (24-44); MCH 28.8 (27-36); MCHC 32.1 g/dl (30-36); MCV 89.7 fl (81-99); NEUTROPHILS 70.3 % (39-80); PLATELET COUNT 227 K/uL (140-440); RBC 4.37 M/ul (4.3-5.7); RDW 14.7 (10.5-15.0)
[2024-03-26 17:45] LABS: ALBUMIN 3.5 g/dL (3.4-5.0); ALBUMIN/GLOBULIN RATIO 0.81 (1.1-2.4); ANION GAP 17.2 (7-21); BILIRUBIN, TOTAL 0.4 ng/dL (0.2-1.0); BUN/CREATININE RATIO 22.29 (6.0-28.6); CREATININE, SERUM 1.57 mg/dL (0.70-1.30); MAGNESIUM 2.2 mg/dL (1.8-2.4); POTASSIUM 4.2 mmol/L (3.5-5.1); PROTEIN, TOTAL 7.8 g/dL (6.4-8.2)
[2024-03-26] MEDS ORDERED: ALBUTEROL/IPRATROPIUM 3 ML NEB INH ONE (19:30)
[2024-03-26 21:35] VITALS: BP 131/71
--- NOTE | 2024-03-27 22:43 | EKG ---
[facility] [address] [facility] [place], [place] [address] Signed Sinus rhythm with premature supraventricular complexes Right bundle branch block Abnormal ECG When compared with ECG of 06-FEB-2024 21:41, T wave inversion no longer evident in Anterior leads Confirmed by MARK DENNEY MD ([id number]) on 03/27/2024 10:43:52 PM Electronically Signed By: MARK DENNEY 03/27/24 2243 PATIENT NAME: RAMOS SANTOS Electrocardiogram DATE OF : 43 PHYSICIAN: MARK DENNEY REPORT #: [id number] REPORT IS CONFIDENTIAL AND NOT TO BE RELEASED WITHOUT AUTHORIZATION
== END 2024-03-26 21:38 | disposition home or self-care (01) ==
LOC: ED 16:57
PROVIDERS: Emergency Medicine
DX: J43.9 Emphysema, unspecified (principal); R06.09 Other forms of dyspnea; I25.2 Old myocardial infarction; I50.9 Heart failure, unspecified; F17.200 Nicotine dependence, unspecified, uncomplicated; Z95.0 Presence of cardiac pacemaker; Z95.2 Presence of prosthetic heart valve; Z86.73 Personal history of transient ischemic attack (TIA), and cerebral infarction without residual deficits; Z79.899 Other long term (current) drug therapy
CPT/HCPCS: 36415; 71045; 71260; 80053; 83735; 83880; 84484; 85025; 93005; 93010; 94640; Q9967

== ENCOUNTER 2024-04-04 17:04 | Emergency (ER) | payer MEDICARE, OTHER ==
[~2024-04-04] VITALS: Ht 188 cm; Wt 67.4 kg
[2024-04-04] MEDS ORDERED: LO-DOSE ASPIRIN81 MG PO (17:55)
[2024-04-04] MEDS ORDERED: NICOTINE PATCH1 EACH TD (17:55)
[2024-04-04] MEDS ORDERED: NICOTINE LOZENGE2 M2 BC (17:55)
[2024-04-04] MEDS ORDERED: ATORVASTATIN CA80 MG PO (17:55)
[2024-04-04] MEDS ORDERED: INCRUSE ELLI62.5 MCG IH (17:55)
[2024-04-04 19:08] LABS: BILIRUBIN, URINE NEGATIVE (negative); BLOOD/HGB, URINE LARGE (Negative); KETONE, URINE NEGATIVE (Negative); LEUK ESTERASE, URINE NEGATIVE (negative); NITRITE, URINE NEGATIVE (negative); PH, URINE 6.5 (5-7)
[2024-04-04 19:10] LABS: RED BLOOD CELLS, URINE >50 /hpf (0-5)
[2024-04-04 19:17] LABS: BACTERIA, URINE NONE SEEN /hpf (negative); CASTS, URINE NONE SEEN \\lpf; COLLECTION TYPE, URINE CLEAN CATCH; CRYSTALS, URINE NONE SEEN (0-1+); EPITHELIAL CELLS, URINE SQUAMOUS 1+ /lpf (0-1+); REFLEX CULTURE, URINE No (No)
[2024-04-04 19:43] LABS: MCH 28.8 (27-36); PLATELET COUNT 206 K/uL (140-440)
[2024-04-04 19:47] LABS: BASOPHILS 1.4 % (0-2); EOSINOPHILS 4.4 % (0-6); HEMATOCRIT 35.9 % (35.0-50.0); HEMOGLOBIN 11.6 g/dL (12.0-18.0); LYMPHOCYTES 30.4 % (24-44); MCHC 32.4 g/dl (30-36); MCV 88.8 fl (81-99); MONOCYTES 12.1 % (0-12); NEUTROPHILS 51.7 % (39-80); RBC 4.04 M/ul (4.3-5.7); RDW 14.7 (10.5-15.0)
[2024-04-04 19:51] LABS: PARTIAL THROMBOPLASTIN TIME 23.7 Sec (22.9-41.3)
[2024-04-04 19:52] LABS: INR 0.98 (0.80-1.30); PROTIME 12.3 Sec (11.2-14.2)
[2024-04-04 19:58] LABS: ALBUMIN 3.3 g/dL (3.4-5.0); ALBUMIN/GLOBULIN RATIO 0.85 (1.1-2.4); ANION GAP 13.3 (7-21); BILIRUBIN, TOTAL 0.2 ng/dL (0.2-1.0); BUN/CREATININE RATIO 19.33 (6.0-28.6); CALCIUM 8.6 mg/dL (8.5-10.1); CREATININE, SERUM 1.5 mg/dL (0.70-1.30); POTASSIUM 4.3 mmol/L (3.5-5.1); PROTEIN, TOTAL 7.2 g/dL (6.4-8.2)
[2024-04-04] MEDS ORDERED: LIDOCAINE 2% VISCOUS 6 ML SYR TOP ONE (22:45)
[2024-04-05] MEDS ORDERED: LIDOCAINE 2% VISCOUS 6 ML SYR TOP ONE (01:15)
[2024-04-05 03:25] VITALS: BP 153/82
== END 2024-04-05 03:26 | disposition home or self-care (01) ==
LOC: ED 17:04
PROVIDERS: Emergency Medicine; Internal Medicine
DX: R31.9 Hematuria, unspecified (principal); I25.2 Old myocardial infarction; F17.200 Nicotine dependence, unspecified, uncomplicated; Z79.899 Other long term (current) drug therapy; Z79.82 Long term (current) use of aspirin
CPT/HCPCS: 36415; 51702; 51798; 80053; 81001; 82553; 85025; 85610; 85730; 99283

== ENCOUNTER 2024-06-02 08:35 | Day surgery (SDC) | payer MEDICARE, OTHER ==
[2024-05-28 11:35] VITALS: BP 77/48
[~2024-06-02] VITALS: Ht 188 cm; Wt 71.4 kg
[~2024-06-02 08:35] MED LIST changes: +ATORVASTATIN CA80 MG PO; +CEFAZOLIN SODIUM 2 GM/20 ML SYR IV SCH; +CEFDINIR300 MG PO; +DEXAMETHASONE SOD PHOS 4 MG/ML VIAL ONE; +FAMOTIDINE 20 MG/ 2 ML VIAL ONE; +FLUORESCEIN SODIUM 500 MG/5 ML ML ONE; +HYDROmorphone HCL 1 MG/ML SYR IV PRN; +IBLOOD GLUCOSE TEST STRIP 1 EA TEST VI PRN; +INCRUSE ELLI62.5 MCG IH; +KETOROLAC TROMETHAMINE 30 MG/ML VIAL ONE; +LACTATED RINGER'S 1,000 ML IV ONE; +LACTATED RINGER'S 1,000 ML IV SCH; +LIDOCAINE HCL 1% 5 ML SDV INJ ONE; +LO-DOSE ASPIRIN81 MG PO; +METOCLOPRAMIDE HCL 10 MG/2 ML SDV ONE; +NICOTINE LOZENGE2 M2 BC; +OXYCODONE/APAP 5/325 TAB PO PRN; +TRAMADOL HCL 50 MG TAB PO PRN; +fentaNYL citrate 100 MCG/2 ML VIAL ONE; +mitoMYcin 40 MG/20 ML VIAL BLADIN SCH; +ondansetron HCL 4 MG/2 ML VIAL IV PRN; +ondansetron HCL 4 MG/2 ML VIAL ONE; +propofoL 200 MG/20 ML VIAL ONE
[2024-06-02] MEDS ORDERED: SUCCINYLCHOLINE IN 0.9% NACL 200 MG/10 ML SYRINGE ONE (08:37)
[2024-06-02 09:05] VITALS: BP 111/70
[2024-06-02] MEDS ORDERED: CIPROFLOXACIN250 MG PO ×2 (09:06)
[2024-06-02] MEDS ORDERED: TRAMADOL HCL25 MG PO ×2 (09:09)
[2024-06-02] MEDS ORDERED: ATORVASTATIN CA80 MG PO ×2 (09:09)
[2024-06-02] MEDS ORDERED: METOPROLOL TARTRATE 5 MG/5 ML VIAL ONE (09:46)
[2024-06-02] MEDS ORDERED: IBLOOD GLUCOSE TEST STRIP 1 EA TEST VI PRN (10:15)
[2024-06-02] MEDS ORDERED: NALOXONE HCL 0.4 MG SYR IV PRN (10:15)
[2024-06-02] MEDS ORDERED: METOCLOPRAMIDE HCL 10 MG/2 ML SDV IV PRN (10:15)
[2024-06-02] MEDS ORDERED: droPERidol 5 MG/2 ML VIAL IV PRN (10:15)
[2024-06-02] MEDS ORDERED: MORPHINE SULFATE 10 MG/ML VIAL IV PRN (10:15)
[2024-06-02] MEDS ORDERED: PROCHLORPERAZINE EDISYLATE 10 MG/2 ML VIAL IV PRN (10:15)
[2024-06-02] MEDS ORDERED: ondansetron HCL 4 MG/2 ML VIAL IV PRN (10:15)
[2024-06-02] MEDS ORDERED: fentaNYL citrate 50 MCG/ML SDV IV PRN (10:15)
--- NOTE | 2024-06-02 10:59 | NUR ---
KWABENA 1045-PT LAYING IN BED AWAKE. UPDATED PT ON WAIT TIME. PT VERBALIZED UNDERSTANDING. NO OHTER NEEDS AT THIS TIME. CALL LIGHT WITHIN REACH.
--- NOTE | 2024-06-02 11:42 | NUR ---
PT LAYING IN BED WATCHING TV. WARM BLANKET PROVIDED. NO OTHER NEEDS AT THIS TIME. CALL LIGHT WITHIN REACH.
[2024-06-02] MEDS ORDERED: ROCURONIUM BROMIDE 50 MG/5 ML SYR ONE (12:44)
[2024-06-02] MEDS ORDERED: LIDOCAINE HCL 2% 5 ML SDV ONE (12:44)
[2024-06-02] MEDS ORDERED: PHENYLEPHRINE HCL 10 MG/ML VIAL ONE (13:15)
[2024-06-02] MEDS ORDERED: SUGAMMADEX SODIUM 200 MG/2 ML ML ONE (14:41)
--- NOTE | 2024-06-02 15:10 | NUR ---
06/02/24 1510 Shanna Baker 1451 PT ARRIVED IN PACU NON RESPONSIVE TO NOXIOUS STIMULI LAYING IN SUPINE POSITION. LERMA CLAMPED AND TAPED TO ABD. 1455 PT REACTIVE. 1500 PT REPOSITIONED SELF TO L SIDE. PILLOW BETWEEN KNEES. NO C/O'S.
[2024-06-02 15:46] VITALS: BP 137/66
--- NOTE | 2024-06-02 15:51 | NUR ---
1548-PT ARRIVES BACK TO ROOM FROM PACU ON RA. RECEIVED REPORT FROM SHARONA CARCAMO. PT IS AWAKE. PT IS IN PRONE POSTITION. THIS IS THE LAST TURN BEFORE MITOMYCIN CAN BE DRAINED FROM BLADDER AT 1600. RATES PAIN A 3/10. DENIES NAUSEA. CALL LIGHT WITIN REACH. NO OTHER NEEDS AT THIS TIME.
--- NOTE | 2024-06-02 16:10 | NUR ---
1600-MITOMYCIN DRAINED FROM BLADDER. 10ML OF STERILE WATER DRAINED FROM LERMA BALLOON. DC'D LERMA. PT TOLERATED PROCEDURE WELL. 1605-PROVIDED PT WITH PUDDING AND WATER. NO OTHER NEEDS AT THIS TIME. CALL LIGHT WITHIN REACH.
--- NOTE | 2024-06-02 16:31 | NUR ---
1625-CALL LIGHT ANSWERED. WARM BLANKETS PROVIDED AND SCARLET HUGGER TURNED ON. WATER REFILLED AND ANOTHER PUDDING GIVEN TO PT. PT RATES PAIN A 3/10 AND WOULD LIKE SOMETHING TO "TAKE THE EDGE OFF". 1630-PAIN MEDICATION GIVEN PER EMAR. CALL LIGHT WITHIN REACH.
[2024-06-02 16:53] VITALS: BP 138/73
--- NOTE | 2024-06-02 16:55 | NUR ---
PT LAYING IN BED AWAKE. STATES "STILL HOLDING AT A 3/10". DENIES NAUSEA. PT IS DRINKING FLUIDS. IV INFUSING. NO OTHER NEEDS AT THIS TIME. CALL LIGHT WITHIN REACH.
[2024-06-02 17:51] VITALS: BP 163/68
--- NOTE | 2024-06-02 18:15 | NUR ---
PATIENT ARRIVED TO THE FLOOR WITH DAY SURGERY/PACU NURSE. REPORT RECEIVED. PATIENT TO MEET DISCHARGE PARAMETERS AND GO HOME. IN REPORT RN STATED TO INSERT A CATHETER AND SEND THE PATIENT HOME IF THEY ARE UNABLE TO VOID AT 1930. PATIENT GIVEN A FRESH CUP OF ICE WATER AND HIS URINAL. PATIENT STATED NO NEEDS AT THIS TIME. CALL LIGHT AND PERSONAL BELONGINGS ARE WITHIN REACH.
--- NOTE | 2024-06-02 18:17 | NUR ---
LE 1725-BLADDER SCANNER READS 133ML. LE 1731-PHONE CALL TO DR PIZANO WITH AN UPDATE ON PT. PT HAS CHOICE TO WAIT 2 HOURS TO VOID OR HAVE LERMA CATH PLACED NOW AND MAY GO HOME PER DR PIZANO. PT STATES HE WOULD LIKE TO VOID IF POSSIBLE.
--- NOTE | 2024-06-02 18:19 | NUR ---
KWABENA 1750-PT LAYING IN BED. RESP EVEN AND UNLABORED. RATES PAIN 2/10. PT STATES CHEST DISCOMFORT BUT "I HAVE THIS ALL THE TIME BECAUSE OF MY COPD. O2 SAT AT 100% ON RA. PT READY TO TRANSFER TO MED SURG. KWABENA 180-PT TRANSFERED TO ROOM 119. PT TRANSFERS SELF TO BED WITH 1 RN ASSIST. REPORT GIVEN TO GAS ENGINE MECHANIC. RATES PAIN 2/10. NO CHEST DISCOMFORT CURRENTLY. WARM BLANKETS PROVIDED. CALL LIGHT WITHIN REACH. NO OHTER NEEDS AT THIS TIME.
[2024-06-02 20:00] VITALS: BP 179/89
--- NOTE | 2024-06-02 20:05 | NUR ---
charge nurse note: Pt voided, pink colored urine, QS. urine placed in yellow bag, cytotoxic precautions. Alert and oriented, no c/o pain. Primary nurse calling Dr Gomez and RX faxed to [facility] pharmacy. Pt ready for DC
--- NOTE | 2024-06-02 20:25 | NUR ---
DISCHARGE INSTRUCTIONS GIVEN. VITAL SIGNS DONE. 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 pt DRESSED AND READY TO GO. IV DC'D WNL. pt URINATED [address] PRUETT NOTIFIED.
--- NOTE | 2024-06-02 21:10 | EKG ---
[facility] [address] [place] [address] Signed Normal sinus rhythm Right bundle branch block Abnormal ECG When compared with ECG of 29-APR-2024 17:58, premature atrial complexes are no longer present Vent. rate has decreased BY [address] no longer depressed in Anterior leads T wave inversion no longer evident in Anterior leads Confirmed by Conner Huynh MD () on 06/02/2024 9:10:21 PM Electronically Signed By: CONNER HUYNH MD 06/02/242109 PATIENT NAME: RAMOS SANTOS Electrocardiogram DATE OF : 43 PHYSICIAN: CONNER HUYNH MD REPORT #: [id number] REPORT IS CONFIDENTIAL AND NOT TO BE RELEASED WITHOUT AUTHORIZATION
[2024-06-05] MEDS ORDERED: CIPROFLOXACIN500 MG PO ×2 (13:07)
--- NOTE | 2024-06-11 11:35 | PATH ---
[facility] [address] [place], [place] [address] Signed SPECIMEN(S): A BLADDER LESIONS SPECIMEN SOURCE: A. BLADDER LESIONS CLINICAL HISTORY: Bladder lesions with bladder wall calcifications. Malignant neoplasm of overlapping sites of bladder. FINAL PATHOLOGIC DIAGNOSIS: Bladder lesions: - High-grade papillary urothelial carcinoma. - Tumor configuration: Papillary. - Grade: High-grade. - Stromal invasion: Not identified. - Detrusor muscle: Present, negative for invasive tumor. - Additional findings: Stromal calcifications present. COMMENT: As part of [facility]' Quality Improvement Program, this case was reviewed by another member of our pathology staff. Diagnostic notification to the office of Dr. Gomez is initiated and will be recorded separately. JVR:KRISTEN:mario MICROSCOPIC EXAMINATION: Histologic sections of all submitted blocks are examined by light microscopy. These findings, together with the gross examination, support the pathologic diagnosis. GROSS DESCRIPTION: The specimen, labeled and designated "Mary bladder lesions with bladder wall calcifications," is received in formalin and consists of a 3.5 x 3.5 x 0.8 cm aggregate of soft dutton-pink tissue with calcified dutton-yellow tissue that is entirely submitted in A1-A3 following decalcification in Immunocal. RP (under the direct supervision of a pathologist) The Gross Description was prepared using a voice recognition system. The report was reviewed for accuracy; however, sound-alike word errors, addition and/or deletions may occur. If there is any question about this report, please contact Client Services. PATIENT NAME: RAMOS SANTOS PATHOLOGY DATE OF : 43 REPORT #: [id number] PHYSICIAN: RADHA SMITH PCP: JARVIS MENDOZA MD REPORT IS CONFIDENTIAL AND NOT TO BE RELEASED WITHOUT AUTHORIZATION [facility] [address] [place] [address] Signed ADDITIONAL NOTES: Immunohistochemical and/or in situ hybridization studies if performed in this case included appropriate positive controls that reacted as expected. This test was developed and its performance characteristics determined by [facility]. It has not been cleared or approved by the U.S. Food and Drug Administration. The FDA has determined that such clearance or approval is not necessary. This test is used for clinical purposes. It should not be regarded as investigational or for research. [facility] is certified under the Clinical Laboratory Improvement Amendments of 1988 (CLIA) as qualified to perform high complexity clinical laboratory testing. PERFORMING LABORATORY: Technical preparation was performed by [facility], [address] [place] [address] (CLIA#: [id number]). Professional interpretation was performed by [facility], [address] [place] [id number] (CLIA#: [id number]). Diagnostician: Bruno Mahmood MD Pathologist Diagnostician: Flex Gaspar MD Pathologist Electronically Signed 06/11/2024 Copies: ~ PATIENT NAME: RAMOS SANTOS PATHOLOGY DATE OF : 43 REPORT #: [id number] PHYSICIAN: RADHA SMITH PCP: JARVIS MENDOZA MD REPORT IS CONFIDENTIAL AND NOT TO BE RELEASED WITHOUT AUTHORIZATION
== END 2024-06-02 20:30 | disposition home or self-care (01) ==
LOC: DS 08:35 → MS 18:49 → DS 20:30
PROVIDERS: ATTEND Urology
PROC: 0TBB8ZZ Excision of Bladder, Via Natural or Artificial Opening Endoscopic (ICD-10-PCS; principal; 2024-06-02 11:35)
DX: C67.9 Malignant neoplasm of bladder, unspecified (principal); D49.4 Neoplasm of unspecified behavior of bladder; J44.9 Chronic obstructive pulmonary disease, unspecified; C67.8 Malignant neoplasm of overlapping sites of bladder; I25.2 Old myocardial infarction; I25.10 Atherosclerotic heart disease of native coronary artery without angina pectoris; Z79.82 Long term (current) use of aspirin; Z79.899 Other long term (current) drug therapy; Z88.8 Allergy status to other drugs, medicaments and biological substances
CPT/HCPCS: 00912; 80048; 85025; 88307; 93005; 93010; J0330; J0690; J1100; J1885; J2001; J2371; J2405; J2704; J2765; J3010; J3490; J7121; J9280

== ENCOUNTER 2024-06-05 12:47 | Emergency (ER) | payer MEDICARE, OTHER ==
[~2024-06-05] VITALS: Ht 188 cm; Wt 72.0 kg
[~2024-06-05 12:47] MED LIST changes: -CEFAZOLIN SODIUM 2 GM/20 ML SYR IV SCH; +CIPROFLOXACIN250 MG PO; -DEXAMETHASONE SOD PHOS 4 MG/ML VIAL ONE; -FAMOTIDINE 20 MG/ 2 ML VIAL ONE; -FLUORESCEIN SODIUM 500 MG/5 ML ML ONE; -HYDROmorphone HCL 1 MG/ML SYR IV PRN; -IBLOOD GLUCOSE TEST STRIP 1 EA TEST VI PRN; -KETOROLAC TROMETHAMINE 30 MG/ML VIAL ONE; -LACTATED RINGER'S 1,000 ML IV ONE; -LACTATED RINGER'S 1,000 ML IV SCH; -LIDOCAINE HCL 1% 5 ML SDV INJ ONE; -METOCLOPRAMIDE HCL 10 MG/2 ML SDV ONE; -OXYCODONE/APAP 5/325 TAB PO PRN; -TRAMADOL HCL 50 MG TAB PO PRN; +TRAMADOL HCL25 MG PO; -fentaNYL citrate 100 MCG/2 ML VIAL ONE; -mitoMYcin 40 MG/20 ML VIAL BLADIN SCH; -ondansetron HCL 4 MG/2 ML VIAL IV PRN; -ondansetron HCL 4 MG/2 ML VIAL ONE; -propofoL 200 MG/20 ML VIAL ONE
[2024-06-05] MEDS ORDERED: CIPROFLOXACIN500 MG PO (13:07)
[2024-06-05] MEDS ORDERED: SODIUM CHLORIDE 0.9% 500 ML IV ONE (13:15)
[2024-06-05 13:18] LABS: BASOPHILS 0.8 % (0-2); EOSINOPHILS 1.4 % (0-6); HEMATOCRIT 37.2 % (35.0-50.0); LYMPHOCYTES 14.2 % (24-44); MCH 27.4 (27-36); MCHC 32.4 g/dl (30-36); MCV 84.7 fl (81-99); MONOCYTES 10.2 % (0-12); NEUTROPHILS 73.4 % (39-80); PLATELET COUNT 173 K/uL (140-440); RBC 4.39 M/ul (4.3-5.7); RDW 16.9 (10.5-15.0)
[2024-06-05 13:47] LABS: ALBUMIN 3.1 g/dL (3.4-5.0); ALBUMIN/GLOBULIN RATIO 0.78 (1.1-2.4); ANION GAP 14.8 (7-21); BILIRUBIN, TOTAL 0.6 ng/dL (0.2-1.0); BUN/CREATININE RATIO 13.46 (6.0-28.6); CALCIUM 8.6 mg/dL (8.5-10.1); CREATININE, SERUM 2.08 mg/dL (0.70-1.30); POTASSIUM 3.8 mmol/L (3.5-5.1); PROTEIN, TOTAL 7.1 g/dL (6.4-8.2)
--- NOTE | 2024-06-05 15:13 | EKG ---
[facility] [address] [facility] [place] [address] Signed Atrial-paced rhythm Right bundle branch block Abnormal ECG When compared with ECG of 02-JUN-2024 09:08, Electronic atrial pacemaker has replaced Sinus rhythm Confirmed by Govind Leos ([id number]) on 06/05/2024 3:12:54 PM Electronically Signed By: GOVIND LEOS MD 06/05/24 1513 PATIENT NAME: RAMOS SANTOS Electrocardiogram DATE OF : 43 PHYSICIAN: GOVIND LEOS MD REPORT #: [id number] REPORT IS CONFIDENTIAL AND NOT TO BE RELEASED WITHOUT AUTHORIZATION
[2024-06-05] MEDS ORDERED: HYDROmorphone HCL 1 MG/ML SYR IV PRN (15:15)
[2024-06-05] MEDS ORDERED: SODIUM CHLORIDE 0.9% 1,000 ML IV ONE (15:15)
[2024-06-05 16:14] LABS: BILIRUBIN, URINE NEGATIVE (negative); BLOOD/HGB, URINE LARGE (Negative); KETONE, URINE NEGATIVE (Negative); LEUK ESTERASE, URINE TRACE (negative); NITRITE, URINE NEGATIVE (negative)
[2024-06-05 16:22] LABS: EPITHELIAL CELLS, URINE SQUAMOUS 1+ /lpf (0-1+)
[2024-06-05 16:23] LABS: BACTERIA, URINE NONE SEEN /hpf (negative); CASTS, URINE NONE SEEN \\lpf; COLLECTION TYPE, URINE CLEAN CATCH; CRYSTALS, URINE NONE SEEN (0-1+); RED BLOOD CELLS, URINE 41-50 /hpf (0-5); REFLEX CULTURE, URINE Yes (No); WHITE BLOOD CELLS, URINE 41-50 /HPF (0-5)
[2024-06-05 18:14] VITALS: BP 162/72
== END 2024-06-05 18:03 | disposition home or self-care (01) ==
LOC: ED 12:47
PROVIDERS: Emergency Medicine
DX: E86.0 Dehydration (principal); T67.5XXA Heat exhaustion, unspecified, initial encounter; X30.XXXA Exposure to excessive natural heat, initial encounter; J44.9 Chronic obstructive pulmonary disease, unspecified; I25.2 Old myocardial infarction; F17.200 Nicotine dependence, unspecified, uncomplicated; Z95.0 Presence of cardiac pacemaker; Z79.899 Other long term (current) drug therapy
CPT/HCPCS: 36415; 71045; 80053; 81001; 84484; 85025; 87088; 93005; 93010; J1170; J7030

== ENCOUNTER 2024-06-07 10:43 | Inpatient (IN) | payer MEDICARE, MEDICAID ==
[~2024-06-07] VITALS: Ht 188 cm; Wt 68.6 kg
[~2024-06-07 10:43] MED LIST changes: +CIPROFLOXACIN500 MG PO
[2024-06-07] MEDS ORDERED: ALBUTEROL/IPRATROPIUM 3 ML NEB INH ONE (11:00)
[2024-06-07] MEDS ORDERED: dilTIAZem HCL 25 MG/5 ML VIAL IV ONE (11:00)
[2024-06-07 11:05] LABS: HEMATOCRIT 42.8 % (35.0-50.0)
[2024-06-07 11:10] LABS: HEMOGLOBIN 13.8 g/dL (12.0-18.0); MCH 27.5 (27-36); MCHC 32.3 g/dl (30-36); MCV 85.2 fl (81-99); PLATELET COUNT 234 K/uL (140-440); RBC 5.02 M/ul (4.3-5.7); RDW 17.5 (10.5-15.0)
[2024-06-07 11:16] LABS: INR 1.15 (0.80-1.30); PROTIME 14.3 Sec (11.2-14.2)
[2024-06-07 11:23] LABS: BASOPHILS, MANUAL DIFF 1; LYMPHOCYTES, MANUAL DIFF 6; MONOCYTES, MANUAL DIFF 1; NEUTROPHILS, MANUAL DIFF 92
[2024-06-07] MEDS ORDERED: DEXTROSE 5% 100 ML IV ONE (11:24)
[2024-06-07 11:28] LABS: ALBUMIN 2.9 g/dL (3.4-5.0); ALBUMIN/GLOBULIN RATIO 0.66 (1.1-2.4); ANION GAP 25.7 (7-21); BILIRUBIN, TOTAL 0.6 ng/dL (0.2-1.0); BUN/CREATININE RATIO 8.67 (6.0-28.6); CALCIUM 8.8 mg/dL (8.5-10.1); CREATININE, SERUM 5.88 mg/dL (0.70-1.30); POTASSIUM 3.7 mmol/L (3.5-5.1); PROTEIN, TOTAL 7.3 g/dL (6.4-8.2)
[2024-06-07] MEDS ORDERED: ondansetron HCL 4 MG/2 ML VIAL IV ONE (11:30)
[2024-06-07] MEDS ORDERED: SODIUM CHLORIDE 0.9% 500 ML IV PRN (11:30)
[2024-06-07] MEDS ORDERED: MORPHINE SULFATE 4 MG/ML VIAL IV ONE (11:30)
[2024-06-07] MEDS ORDERED: PIPERACILLIN/TAZOBACTAM 3.375 GM in DEXTROSE 5% 100 ML IV ONE (11:30)
[2024-06-07 11:43] LABS: ABO O; ANTIBODY SCREEN NEGATIVE; RH POSITIVE
[2024-06-07] MEDS ORDERED: SODIUM CHLORIDE 0.9% 1,000 ML IV PRN (11:45)
[2024-06-07 11:54] LABS: LACTIC ACID, BLOOD 5.3 mmol/L (0.4-2.0)
[2024-06-07] MEDS ORDERED: HYDROmorphone HCL 1 MG/ML SYR IV PRN ×2 (12:30→19:00)
[2024-06-07] MEDS ORDERED: LIDOCAINE 2% VISCOUS 6 ML SYR TOP ONE ×2 (12:45→19:15)
[2024-06-07] MEDS ORDERED: SODIUM CHLORIDE 0.9% 1,000 ML IV SCH (12:45)
[2024-06-07] MEDS ORDERED: DAPTOmycin 500 MG/10 ML VIAL IV SCH ×2 (13:00→13:30)
[2024-06-07] MEDS ORDERED: CEFEPIME HCL/D5W 2 GM/100 ML PIGGYBACK IV SCH (14:00)
[2024-06-07] MEDS ORDERED: SODIUM CHLORIDE 0.9% 1,000 ML IV ONE ×3 (14:45→18:45)
[2024-06-07 15:33] LABS: BASOPHILS 0.3 % (0-2); EOSINOPHILS 0.1 % (0-6); HEMATOCRIT 38.4 % (35.0-50.0); HEMOGLOBIN 12.5 g/dL (12.0-18.0); LYMPHOCYTES 3.6 % (24-44); MCH 27.5 (27-36); MCHC 32.6 g/dl (30-36); MCV 84.2 fl (81-99); MONOCYTES 8.3 % (0-12); NEUTROPHILS 87.7 % (39-80); PLATELET COUNT 184 K/uL (140-440); RBC 4.56 M/ul (4.3-5.7); RDW 17.2 (10.5-15.0)
[2024-06-07 15:49] LABS: ALBUMIN 2.7 g/dL (3.4-5.0); ALBUMIN/GLOBULIN RATIO 0.69 (1.1-2.4); ANION GAP 14.1 (7-21); BILIRUBIN, TOTAL 0.6 ng/dL (0.2-1.0); BUN/CREATININE RATIO 10.57 (6.0-28.6); CALCIUM 8.1 mg/dL (8.5-10.1); CREATININE, SERUM 4.54 mg/dL (0.70-1.30); POTASSIUM 4.1 mmol/L (3.5-5.1); PROTEIN, TOTAL 6.6 g/dL (6.4-8.2)
[2024-06-07] MEDS ORDERED: PANTOPRAZOLE SODIUM 40 MG/10 ML VIAL IV SCH (16:30)
[2024-06-07 17:23] LABS: ANION GAP 10.3 (7-21); BUN/CREATININE RATIO 11.37 (6.0-28.6); CALCIUM 7.4 mg/dL (8.5-10.1); CREATININE, SERUM 3.78 mg/dL (0.70-1.30); POTASSIUM 4.3 mmol/L (3.5-5.1)
[2024-06-07] MEDS ORDERED: DEXTROSE 5% - LACTATED RINGERS 1,000 ML IV SCH (19:00)
[2024-06-07] MEDS ORDERED: PROCHLORPERAZINE EDISYLATE 10 MG/2 ML VIAL IV PRN (19:00)
[2024-06-07] MEDS ORDERED: ondansetron HCL 4 MG/2 ML VIAL IV PRN (19:00)
[2024-06-07] MEDS ORDERED: ACETAMINOPHEN 325 MG TAB PO PRN (19:00)
[2024-06-07] MEDS ORDERED: ACETAMINOPHEN 650 MG SUPP PR PRN (19:00)
[2024-06-07] MEDS ORDERED: iopamidoL 30 ML VIAL ONE (19:39)
--- NOTE | 2024-06-07 20:10 | NUR ---
PATIENT ARRIVES WITH [facility] OR NURSE. PATIENT IS ALERT AND ORIENTED, NGT IN PLACED, PUT SUCTION BY [facility] RN, LERMA IN PLACE. PATIENT IS ALERT AND ORIENTED.
[2024-06-07 20:14] VITALS: BP 153/75
--- NOTE | 2024-06-07 20:25 | NUR ---
AT BEDSIDE TALKING WITH PATIENT AND FAMILY.
--- NOTE | 2024-06-07 20:27 | NUR ---
PATIENT REPORTS TO THIS RN THAT HIS PAIN IS TOLERABLE AT 2/10, HE IS ADVICED TO NOTIFY STAFF IF PAIN INCREASES, HE SMILED AND SAID, "I WILL"
[2024-06-07] MEDS ORDERED: FAMOTIDINE 20 MG/ 2 ML VIAL IV SCH (21:00)
[2024-06-07] MEDS ORDERED: DICYCLOMINE HCL 20 MG/2 ML VIAL IM ONE (21:45)
--- NOTE | 2024-06-07 22:16 | NUR ---
FAMILY AT BEDSIDE WITH PATIENT, UPDATED BY DAVID CARCAMOAPPRAISAL COORDINATOR ON TRANSPORT ETA AND THAT PATIENT WILL BE GOING TO [facility]
--- NOTE | 2024-06-07 22:35 | NUR ---
[facility]IFE [facility] REPORT GIVEN, TEAM IS IN ROOM NOW PREPARING PATIENT FOR TRANSFER. FAMILY IS AT BEDSIDE
[2024-06-07 22:37] VITALS: BP 124/93
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
--- NOTE | 2024-06-09 11:28 | EKG ---
[facility] [address] [facility] [place], [place] [address] Signed Sinus tachycardia Right bundle branch block Abnormal ECG No previous ECGs available Confirmed by MARK DENNEY MD ([id number]) on 06/09/2024 11:28:28 AM Electronically Signed By: MARK DENNEY 06/09/24 1128 PATIENT NAME: RAMOS SANTOS Electrocardiogram DATE OF : 43 PHYSICIAN: MARK DENNEY REPORT #: [id number] REPORT IS CONFIDENTIAL AND NOT TO BE RELEASED WITHOUT AUTHORIZATION
== END 2024-06-07 22:47 | disposition short-term general hospital (02) | DRG 699 ==
LOC: ED 10:43 → CCU 18:59
PROVIDERS: Family Medicine; Urology; ADMIT Colon & Rectal Surgery; ATTEND Colon & Rectal Surgery
PROC: BT101ZZ Fluoroscopy of Bladder using Low Osmolar Contrast (ICD-10-PCS; principal; 2024-06-07 19:38)
DX: N32.89 Other specified disorders of bladder (principal); E87.20 Acidosis, unspecified; K56.609 Unspecified intestinal obstruction, unspecified as to partial versus complete obstruction; K56.7 Ileus, unspecified; N17.9 Acute kidney failure, unspecified; N39.0 Urinary tract infection, site not specified; E86.0 Dehydration; I50.9 Heart failure, unspecified; J44.9 Chronic obstructive pulmonary disease, unspecified; I25.10 Atherosclerotic heart disease of native coronary artery without angina pectoris; I73.9 Peripheral vascular disease, unspecified; K66.8 Other specified disorders of peritoneum; K22.89 Other specified disease of esophagus; E86.1 Hypovolemia; B95.7 Other staphylococcus as the cause of diseases classified elsewhere; N18.30 Chronic kidney disease, stage 3 unspecified; K74.60 Unspecified cirrhosis of liver; I71.40 Abdominal aortic aneurysm, without rupture, unspecified; Z95.2 Presence of prosthetic heart valve; Z95.0 Presence of cardiac pacemaker; Z85.51 Personal history of malignant neoplasm of bladder; I25.2 Old myocardial infarction; Z86.73 Personal history of transient ischemic attack (TIA), and cerebral infarction without residual deficits
CPT/HCPCS: 36415; 51702; 51798; 71045; 74176; 74430; 80048; 80053; 82803; 83605; 83735; 83880; 84484; 85025; 85379; 85610; 86850; 86900; 86901; 93005; 93010; 94640; 99285-25; J0500; J0692; J0878; J1170; J2270; J2405; J2543; J7030; J7121; Q9958

== ENCOUNTER 2024-09-10 09:23 | Inpatient (IN) | payer MEDICARE, MEDICAID ==
[~2024-09-10] VITALS: Ht 188 cm; Wt 60.1 kg
[2024-09-10] MEDS ORDERED: SODIUM CHLORIDE 0.9% 500 ML IV ONE (09:30)
[2024-09-10 09:50] LABS: BILIRUBIN, URINE NEGATIVE (negative); BLOOD/HGB, URINE LARGE (Negative); HEMATOCRIT 33.3 % (35.0-50.0); HEMOGLOBIN 10.7 g/dL (12.0-18.0); KETONE, URINE NEGATIVE (Negative); LEUK ESTERASE, URINE LARGE (negative); MCH 26.5 (27-36); MCHC 32.2 g/dl (30-36); MCV 82.3 fl (81-99); NITRITE, URINE POSITIVE (negative); PLATELET COUNT 352 K/uL (140-440); RBC 4.04 M/ul (4.3-5.7); RDW 16.7 (10.5-15.0)
[2024-09-10 09:58] LABS: RED BLOOD CELLS, URINE 0-1 /hpf (0-5); WHITE BLOOD CELLS, URINE 0-1 /HPF (0-5)
[2024-09-10 09:59] LABS: CASTS, URINE NONE SEEN \\lpf; COLLECTION TYPE, URINE CLEAN CATCH; CRYSTALS, URINE NONE SEEN (0-1+); EPITHELIAL CELLS, URINE 0 /lpf (0-1+); REFLEX CULTURE, URINE No (No)
[2024-09-10 10:00] LABS: BACTERIA, URINE RARE /hpf (negative)
[2024-09-10 10:05] LABS: ALBUMIN 2.2 g/dL (3.4-5.0); ALBUMIN/GLOBULIN RATIO 0.39 (1.1-2.4); ALKALINE PHOSPHATASE 144 U/L (46-116); ANION GAP 12.1 (7-21); AST (SGOT) 117 U/L (15-37); BILIRUBIN, TOTAL 0.9 ng/dL (0.2-1.0); BUN/CREATININE RATIO 11.39 (6.0-28.6); CALCIUM 9.1 mg/dL (8.5-10.1); CARBON DIOXIDE 27 mmol/L (21-32); CHLORIDE 102 mmol/L (98-107); CREATININE, SERUM 1.93 mg/dL (0.70-1.30); GLOMERULAR FILTRATION RATE,EST 35 mL/min (>60); POTASSIUM 3.1 mmol/L (3.5-5.1); PROTEIN, TOTAL 7.9 g/dL (6.4-8.2); UREA NITROGEN 22 mg/dL (7-18)
[2024-09-10 10:08] LABS: ALT (SGPT) <6 U/L (14-59)
[2024-09-10 10:13] LABS: BANDS, MANUAL DIFF 2; LYMPHOCYTES, MANUAL DIFF 7; MONOCYTES, MANUAL DIFF 3; NEUTROPHILS, MANUAL DIFF 88
[2024-09-10] MEDS ORDERED: CEFTRIAXONE/SODIUM CHLORIDE 2 GM/100 ML PIGGYBACK IV ONE (12:30)
[2024-09-10] MEDS ORDERED: LIDOCAINE 2% VISCOUS 6 ML SYR TOP ONE (14:15)
[2024-09-10 15:29] LABS: BILIRUBIN, URINE NEGATIVE (negative); BLOOD/HGB, URINE LARGE (Negative); KETONE, URINE NEGATIVE (Negative); LEUK ESTERASE, URINE MODERATE (negative); NITRITE, URINE POSITIVE (negative)
[2024-09-10 15:35] LABS: WHITE BLOOD CELLS, URINE >50 /HPF (0-5)
[2024-09-10 15:36] LABS: CRYSTALS, URINE NONE SEEN (0-1+); EPITHELIAL CELLS, URINE 0 /lpf (0-1+)
[2024-09-10 15:37] LABS: BACTERIA, URINE 1+ /hpf (negative)
[2024-09-10 15:38] LABS: CASTS, URINE NONE SEEN \\lpf; COLLECTION TYPE, URINE CATH; REFLEX CULTURE, URINE Yes (No)
[2024-09-10] MEDS ORDERED: VENTOLIN HFA18 GM INH (16:19)
[2024-09-10] MEDS ORDERED: ACETAMINOPHEN 325 MG TAB PO PRN ×2 (17:00)
[2024-09-10] MEDS ORDERED: DEXTROSE 5% - LACTATED RINGERS 1,000 ML IV SCH ×2 (17:00)
[2024-09-10] MEDS ORDERED: ondansetron HCL 4 MG/2 ML VIAL IV PRN ×2 (17:00)
--- NOTE | 2024-09-10 17:00 | NUR ---
THIS RN AND INTERVENTIONIST BRING PT FROM ED TO MEDICAL FLOOR, RECEIVED REPORT FROM DONA LIVINGSTON. PT ABLE TO MOVE FROM STRETCHER TO BED WITH MINIMAL DIFFICULTY. DR. ISAACS TO BEDSIDE. PT ABLE TO ANSWER ADMISSION QUESTIONS APPROPRIATELY, HAS DIFFICULTY REMEMBERING SPECIFIC DETAILS ABOUT HEALTH HISTORY. PT TAKES PO MEDICATIONS W/O DIFFICULTY. PT SITTING UP IN BED TO EAT DINNER, ICE WATER AND ENSURE GIVEN. PT DENIES PAIN, NAUSEA, STATES HE ALWAYS FEELS SOB, BUT THAT IT IS "NOT BAD" AT THIS TIME. PT STATES NO CURRENT NEEDS, CALL LIGHT WITHIN REACH.
[2024-09-10 17:02] VITALS: BP 127/77
[2024-09-10] MEDS ORDERED: INHALER, ASSIST DEVICES 1 EACH SPACER MISC ONE (17:15)
[2024-09-10] MEDS ORDERED: ALBUTEROL SULFATE 8 GM INH INH PRN (17:15)
[2024-09-10] MEDS ORDERED: POTASSIUM CHLORIDE 10 MEQ TABCR PO ONE (17:15)
[2024-09-10] MEDS ORDERED: ALBUTEROL SULFATE 0.083% 3 ML VIAL INH PRN (17:30)
[2024-09-10 18:24] VITALS: BP 110/58
[2024-09-10 18:39] VITALS: BP 110/58
--- NOTE | 2024-09-10 19:20 | NUR ---
REPORT RECEIVED FROM DONA TONY. pt RESTING IN BED AWAKE, REQUESTING TO REST. ATTENDS PLACED ON pt. TRAY TABLE CLEARED. CALL LIGHT IN REACH.
[2024-09-10 19:43] VITALS: BP 100/77
[2024-09-10] MEDS ORDERED: ALBUTEROL/IPRATROPIUM 3 ML NEB INH SCH (20:00)
--- NOTE | 2024-09-10 20:00 | NUR ---
pt SLEEPING WHEN RN ENTERS ROOM. ASSESSMENT AND VS COMPLETE. pt DENIES PAIN. NEW DRAINAGE BAG PLACED ON CATHETER, AIR LOCKED. LERMA CARE COMPLETE. BARRIER CREAM APPLIED TO RED GORDO AREA. IV SITE FLUSHED WNL, IVF INFUSING ORDERED. BED ALARM ON, CALL LIGHT IN REACH.
[2024-09-10] MEDS ORDERED: MELATONIN 3 MG TAB PO PRN (21:00)
--- NOTE | 2024-09-10 22:07 | NUR ---
CHECKED ON pt. RESTING IN BED WITH EYES CLOSED, SNORING. NO DISTRESS NOTED. IVF INFUSING WNL.
[2024-09-10 23:29] VITALS: BP 100/77
[2024-09-11] VITALS (11 sets, daily range): BP systolic 93–122; BP diastolic 48–532
--- NOTE | 2024-09-11 01:41 | NUR ---
pt SLEEPING, AWAKENS TO VOICE. VSS. pt DENIES PAIN. ICE WATER REFILLED. IV SITE ASSESSED, INFUSING WNL. LERMA EMPTIED. pt DENIES ADDITIONAL NEEDS. CALL LIGHT IN REACH.
--- NOTE | 2024-09-11 04:18 | NUR ---
CHECKED ON pt, RESTING IN BED WITH EYES CLOSED, SNORING. NO DISTRESS NOTED. URINE NOTED IN LERMA DRAINAGE BAG.
--- NOTE | 2024-09-11 05:26 | NUR ---
CERTIFIED OPHTHALMIC ASSISTANT OBTAINED VITALS AND I&O. PT ICE WATER REFILLED. PT STATES NO FURTHER NEEDS AT THIS TIME. CALL LIGHT WITHIN REACH AND BED ALARM ON.
[2024-09-11 05:32] LABS: BASOPHILS 0.6 % (0-2); EOSINOPHILS 0.4 % (0-6); HEMOGLOBIN 8.9 g/dL (12.0-18.0); LYMPHOCYTES 9.6 % (24-44); MCH 26.9 (27-36); MCV 81.3 fl (81-99); MONOCYTES 8.1 % (0-12); NEUTROPHILS 81.3 % (39-80); PLATELET COUNT 289 K/uL (140-440); RBC 3.32 M/ul (4.3-5.7); RDW 16.7 (10.5-15.0)
[2024-09-11 05:46] LABS: ANION GAP 10.3 (7-21); BUN/CREATININE RATIO 16.87 (6.0-28.6); CALCIUM 8.5 mg/dL (8.5-10.1); CREATININE, SERUM 1.6 mg/dL (0.70-1.30); MAGNESIUM 2.1 mg/dL (1.8-2.4); POTASSIUM 3.3 mmol/L (3.5-5.1)
--- NOTE | 2024-09-11 06:14 | NUR ---
pt RESTING IN BED ON RIGHT SIDE, BREATHING UNLABORED. NO DISTRESS NOTED.
--- NOTE | 2024-09-11 07:30 | NUR ---
REPORT RECEIVED FROM DAY SHIFT RN. PATIENT RESTING IN BED. NO NEEDS AT THIS TIME, CALL LIGHT WITHIN REACH.
--- NOTE | 2024-09-11 08:29 | NUR ---
Patient resting in bed doing breathing tx. RT in room with patient MD in room with patient. Assessment complete. Patient reports pain 1/10 in his lower back.Lungs clear and dim throughout. Urine draining yellow. HARNESS CLEANER with patient eating breakfast. Call light within reach.
--- NOTE | 2024-09-11 08:46 | NUR ---
LERMA CATHERTER EMPTIED, NOTED SEDIMENT IN URINE. CATHERTER CLAMPED PRIOR RENAL ULTRA SOUND.
[2024-09-11] MEDS ORDERED: ENOXAPARIN SODIUM 40 MG/0.4 ML SYR SUB-Q SCH (09:00)
[2024-09-11] MEDS ORDERED: POTASSIUM CHLORIDE 10 MEQ TABCR PO ONE (09:00)
[2024-09-11] MEDS ORDERED: CEFTRIAXONE/SODIUM CHLORIDE 1 GM/100 ML PIGGYBACK IV SCH (09:00)
--- NOTE | 2024-09-11 09:35 | NUR ---
IV ABX COMPLETED. IVF RESTARTED. IV SITE REMAINS PATENT. PATIENT REQUESTING FRESH COFFEE. FRESH COFFEE GIVEN. NO FURTHER NEEDS. CALL LIGHT WITHIN REACH.
--- NOTE | 2024-09-11 10:31 | NUR ---
UR CLINICAL REVIEW: 2MN MIKES-MEETS INPT FOR URINARY RETENTION, UTI MEDICARE INPT 09/10/24 @ 1524 ORDER MATCHES REG NO AUTH REQUIRED PER MEDICARE RULES DC PLAN PENDING CASE MANAGEMENT ASSESSMENT.
--- NOTE | 2024-09-11 10:35 | NUR ---
PATIENT RESTING IN BED. ULTRA SOUNDS COMPLETED. CATHERTER UNCLAMPED AND DRAIAING YELLOW URINE. NO NEEDS AT THIS TIME. CALL LIGHT WITHIN REACH.
--- NOTE | 2024-09-11 11:00 | NUR ---
Spoke with Sarbjit. We discussed his ER visit yesterday and my phone call to his DIL, Emily. Pt stating he is declining and has issues with incontinence, unable to walk to the neighbors, no longer driving. He states he lost his and wants to be able to be with her, but not quite yet. He is concerned about his granddaughter and how she would feel if he passed. He wants to remain a full code at this time. He is unsure if he is ready for an LARRY. We discussed Aging and Disability and it takes 45 days to get funds for placement. He is considered low income. I attemted to call [facility] from his room and left a message. He would like to complete and eval in case he needs assist in the near future. He is aware he may need to transfer if he needs urostomy tubes placed. Pt states he no longer see's Dr. Cesar and now sees Dr. Mckee in [place]. Pt denies other needs, feels his DIL is wonderful and will assist him as needed.
--- NOTE | 2024-09-11 11:30 | NUR ---
PATIENT RESTING RECLINER. DENIES ANY NEEDS AT THIS TIME. CALL LIGHT WITHIN REACH.
[2024-09-11] MEDS ORDERED: PHARMACY RENAL DOSE ADJUSTMENT 1 DOSE MISC PO SCH (12:00)
--- NOTE | 2024-09-11 12:45 | NUR ---
MED REC COMPLETE
--- NOTE | 2024-09-11 12:47 | NUR ---
IV ALARMING. NEW BAG OF IVF HUNG. IV SITE REMAINS PATENT. PATIENT SITTING IN RECLINER EATING LUNCH. NO NEEDS AT THIS TIME. CALL LIGHT WITHIN REACH.
--- NOTE | 2024-09-11 13:53 | NUR ---
PT UP TO CHAIR, STATES NO NEEDS AT THIS TIME, CALL LIGHT WTIHIN REACH.
--- NOTE | 2024-09-11 14:35 | NUR ---
VISITED DURING SPIRITUAL CARE ROUNDS. PT APPEARED TO BE IN OVERALL GOOD SPIRITS, EXPRESSED GRATITUDE FOR IDENTIFIED PATH FORWARD. BUSINESS LIBRARIAN PROVIDED SUPPORTIVE PRESENCE, HOSPITALITY, PRAYER. PT EXPRESSED GRATITUDE.
--- NOTE | 2024-09-11 14:42 | NUR ---
PATIENT RESTING IN RECLINER TALKING ON THE PHONE WITH SON. NO NEEDS AT THIS TIME. CHAIR ALARM IN PLACE. CALL LIGHT WITHIN REACH.
--- NOTE | 2024-09-11 14:47 | NUR ---
Received a call from Bambi Villanueva at [facility]. She was able to speak with Sarbjit. He neglected to tell her he has bladder cancer, weakness, incontinence of bowel and bladder, and failure to thrive. She is requesting Emily LAST's phone number as Sarbjit could not remember the number. I gave her the number and she will call Emily and complete the evaluation for halfway medicaid.
--- NOTE | 2024-09-11 15:09 | NUR ---
TREATMENT ARE FORMULARY SUBSTITUTION FOR HOME REGIMEN.
--- NOTE | 2024-09-11 16:43 | NUR ---
PATIENT RESTING IN RECLINER WITH EYES CLOSED. RESPIRATORIONS EVEN AND UNLABORED. CALL LIGHT WITHIN REACH.
--- NOTE | 2024-09-11 17:37 | NUR ---
PATIENT ASSISTED INTO BED. 1 PA STAND BY ASSIST FOR TRANSFER. TOLLERATED WELL. C/O BEING COLD. WARM BLANKETS PROVIDED. DENIES ANY PAIN OR DISCOMFORT AT THIS TIME. CALL LIGHT WITHIN REACH. BED ALARM ON.
--- NOTE | 2024-09-11 18:23 | NUR ---
FRESH COFFEE GIVEN PER PATIENT REQUEST, RESTING IN BED. VSS. DENIES PAIN OR DISCOMFORT AT THIS TIME. URINE DRAINAING CLOUDY YELLOW WITH SEDIMENT NOTED. NO FURTHER NEEDS AT THIS TIME. CALL LIGHT WITHIN REACH.
--- NOTE | 2024-09-11 18:51 | NUR ---
Patient was relaxed in bed with a cup of coffee. Last rounds were done and no other cares were requested.
--- NOTE | 2024-09-11 19:23 | NUR ---
REPORT RECIEVED FROM DAY SHIFT RN. PATIENT RESTING IN BED WATCHING TV. DENIES NEEDS AT THIS TIME. CALL LIGHT IN REACH.
[2024-09-11] MEDS ORDERED: BUDESONIDE 0.5 MG/2 ML VIAL INH SCH (20:00)
--- NOTE | 2024-09-11 21:07 | NUR ---
SOCIAL STUDIES DEPARTMENT CHAIR OBTAINED VITALS AND I&O. PTICE WATER REFILLED. PT STATES NO FURTHER NEEDS AT THIS TIME. CALL LIGHT WITHIN REACH AND BED ALARM ON.
--- NOTE | 2024-09-11 22:38 | NUR ---
ASSESSMENT COMPLETE. PATIENT REPORTS FEELING COMFORTABLE AT THIS TIME. NEW BAG IV FLUID INFUSING PER ORDER. IV FLUSHES WNL. PATIENT STATES THAT HE COMPLETED HIS OWN CATHETER CARE THIS EVENING. PATIENT HAS NO FURTHER NEEDS AT THIS TIME. CALL LIGHT IN REACH.
--- NOTE | 2024-09-11 23:56 | NUR ---
PATIENT RESTING IN BED ON LEFT SIDE. DENIES NEEDS AT THIS TIME. CALL LIGHT IN REACH.
[2024-09-12] VITALS (9 sets, daily range): BP systolic 114–151; BP diastolic 52–73
--- NOTE | 2024-09-12 02:21 | NUR ---
BED ALARM ANSWERED. PT AT EDGE OF BED STATING THAT HE NEEDED TO USE BATHROOM. HUMID SYSTEM OPERATOR OFFERED PT FWW. PT DENIED. HUMID SYSTEM OPERATOR 1PA TO BATHROOM. PT HAD BM. HUMID SYSTEM OPERATOR THEN ASSISTED PT BACK TO BED. PT STATES NO FURTHER NEEDS AT THIS TIME. CALL LIGHT WITHIN REACH AND BED ALARM ON.
--- NOTE | 2024-09-12 04:50 | NUR ---
PATIENT RESTING IN BED WITH EYES CLOSED. RESPIRATIONS EVEN AND UNLABORED. CALL LIGHT IN REACH.
--- NOTE | 2024-09-12 05:26 | NUR ---
WOODENWARE ASSEMBLER OBTAINED VITALS AND I&O. PT STATES NO NEEDS AT THIS TIME. CALL LIGHT WITHIN REACH AND BED ALARM ON.
[2024-09-12 05:46] LABS: BASOPHILS 1.2 % (0-2); EOSINOPHILS 1.9 % (0-6); HEMATOCRIT 26.2 % (35.0-50.0); HEMOGLOBIN 8.4 g/dL (12.0-18.0); LYMPHOCYTES 14.8 % (24-44); MCH 26.6 (27-36); MCV 83.1 fl (81-99); MONOCYTES 7.9 % (0-12); NEUTROPHILS 74.2 % (39-80); PLATELET COUNT 291 K/uL (140-440); RBC 3.15 M/ul (4.3-5.7); RDW 16.7 (10.5-15.0)
[2024-09-12 06:01] LABS: ANION GAP 11.5 (7-21); BUN/CREATININE RATIO 15.17 (6.0-28.6); CALCIUM 8.2 mg/dL (8.5-10.1); CREATININE, SERUM 1.45 mg/dL (0.70-1.30); MAGNESIUM 1.8 mg/dL (1.8-2.4); PHOSPHORUS, INORGANIC 2.5 mg/dL (2.5-4.9); POTASSIUM 3.5 mmol/L (3.5-5.1)
--- NOTE | 2024-09-12 07:15 | NUR ---
RECIEVED REPORT FROM DONA RONQUILLO. PATIENT SLEEPING IN BED. RESPIRATIONS EVEN AND UNLABORED. CALL LIGHT IN REACH.
--- NOTE | 2024-09-12 07:43 | NUR ---
Patient resting in bed, eyes closed, respirations even and non labored. Patient has no notable distress. IV fluids infusing per order. Personal supplies and call light within reach.
--- NOTE | 2024-09-12 09:00 | NUR ---
Spoke with Sarbjit. Updated PT/OT feel he needs a SNF on dc. He is in agreement and would like to stay in [place] if possible. First choice is [facility], second is [facility] in [place], and 3rd is [facility]. I have a text in to Flor at [facility] to check if they still have beds open this week and if pt could possibly go today. We did discuss pts past bladder ca. Pt states he no longer getting treatment and does not have any plans for chemo or radiation in the near future. Chart faxed to Flor.
--- NOTE | 2024-09-12 10:39 | NUR ---
VISITED DURING SPIRITUAL CARE ROUNDS. PT APPEARED TO BE SLEEPING. DID NOT DISTURB. PROVIDED PRAYER.
--- NOTE | 2024-09-12 11:34 | NUR ---
PT SON - KELLIE CALLED FOR UPDATE, INFORMED THAT WE ARE LOOKING FOR PLACEMENT AT THIS TIME. MEDICALLY PER MD, COULD DISCHARGE TODAY IF WE FIND A PLACEMENT. NO FURTHER QUESTIONS.
--- NOTE | 2024-09-12 11:55 | NUR ---
Patient resting in med, alert and oriented x4, no acute distress. Patient denies pain at this time. Carrillo remains intact/patent, clear yellow urine noted. Patient reports he did not sleep well last night, he is requesting to take a nap at this time. IV remains patent, fluids infusing per order. Call light within reach.
--- NOTE | 2024-09-12 14:30 | NUR ---
PT WORKING WITH PT HELD THIS DOSE OUTOF WINDOW FOR NEXT SCHEDULED DOSAGE
--- NOTE | 2024-09-12 14:45 | NUR ---
IN ROOM TO ROUND ON PATIENT. PATIENT AWAKE IN BED TALKING TO DIETARY. DENIES ADDITIONAL NEEDS AT THIS TIME. CALL LIGHT IN REACH
--- NOTE | 2024-09-12 18:19 | NUR ---
Patient awake sitting up in bed, alert and oriented x4. Patient denies pain. Doshi patent, clear yellow urine in doshi bag. Patient denies discomfort. Call light within reach.
--- NOTE | 2024-09-12 18:59 | NUR ---
GOT THE PATIENT A CUP OF COFFEE AND MILK. PATIENT IS WATCHING A WESTERN MOVIE.
--- NOTE | 2024-09-12 19:16 | NUR ---
SHIFT REPORT RECEIVED FROM GARRET CARCAMO AND JOSE CARCAMO, PT APPEARS TO SLEEP, RESP EVEN AND REG, HOB ELEVATED APPROX 20 DEGREES, SIDE RAILS UP X 2.
--- NOTE | 2024-09-12 20:00 | NUR ---
PT CALLED DUE TO IV ALARM, PT AWAKE AND ALERT, NEW BAG OF D5LR HUNG AND INFUSING WELL AT 100ML/HR, SITE INTACT, PT DENIES NEEDS AT THIS TIME, RESTING. PT STATES HE IS DOING A LITTLE BETTER TODAY.
--- NOTE | 2024-09-12 20:21 | NUR ---
MYRON AND DONA PATRICIO OBTAINED VITALS AND I&O. CATH BAG EMPTIED. PT GIVEN A WARM BLANKET AND A CUP OF COFFEE UPON REQUEST. ICE WEATER REFILLED. PT STATES NO FURTHER NEEDS AT THIS TIME. CALL LIGHT WITHIN REACH AND BED ALARM ON.
--- NOTE | 2024-09-12 22:55 | NUR ---
PT APPEARS TO SLEEP, RESP EVEN AND REG, LEFT UNDISTURBED AT THIS TIME.
--- NOTE | 2024-09-12 23:30 | NUR ---
PT AWAKE AND ALERT, VISITING WITH NURSE, ASSESSMENT COMPLETED, PT DENIES PAIN, PT STATES HE WILL COMPLETE OWN LERMA CARE, LERMA TO GRAVITY, DRAINING YELLOW URINE, PT GIVEN COFFEE PER REQUEST.
[2024-09-13] VITALS (11 sets, daily range): BP systolic 134–143; BP diastolic 60–67
--- NOTE | 2024-09-13 01:28 | NUR ---
PT APPEARS TO SLEEP, RESP EVEN AND REG.
--- NOTE | 2024-09-13 02:46 | NUR ---
PT CONTINUES TO SLEEP, RESP EVEN AND REG, IVF INFUSING WELL.
--- NOTE | 2024-09-13 03:50 | NUR ---
PT AWAKE, DENIES NEEDS AT THIS TIME.
[2024-09-13 05:37] LABS: BASOPHILS 3.5 % (0-2); EOSINOPHILS 5.3 % (0-6); HEMOGLOBIN 8.1 g/dL (12.0-18.0); LYMPHOCYTES 20.3 % (24-44); MCH 26.8 (27-36); MCHC 32.5 g/dl (30-36); MCV 82.3 fl (81-99); MONOCYTES 9.1 % (0-12); NEUTROPHILS 61.8 % (39-80); PLATELET COUNT 298 K/uL (140-440); RBC 3.04 M/ul (4.3-5.7)
[2024-09-13 05:46] LABS: ANION GAP 10.6 (7-21); BUN/CREATININE RATIO 14.17 (6.0-28.6); CALCIUM 8.6 mg/dL (8.5-10.1); CREATININE, SERUM 1.27 mg/dL (0.70-1.30); MAGNESIUM 1.8 mg/dL (1.8-2.4); POTASSIUM 3.6 mmol/L (3.5-5.1)
--- NOTE | 2024-09-13 05:46 | NUR ---
PT AWAKE AND ALERT, AM BLOOD DRAW COMPLETED AND FEW MINUTES AGO, VS COMPLETED PER GUI SANCHES, REVIEWED AND STABLE, IV PATENT, NEW BAG OF FLUID HUNG PER ORDER, PT DENIES PAIN AT THIS TIME, LERMA OUT 1400 ML CLEAR YELLOW URINE.
--- NOTE | 2024-09-13 07:15 | NUR ---
RECIEVED REPORT FROM DONA LLAMAS. PATIENT SLEEPING IN BED. RESPIRATIONS EVEN AND UNLABORED. CALL LIGHT IN REACH.
--- NOTE | 2024-09-13 08:45 | NUR ---
Patient sitting up in bed eating breakfast, alert and oriented x4. Patient reports he slept well last night, no pain per pt report. Patient's doshi intact/patent, clear yellow urine noted. Patient denies needs at this time, personal supplies and call light within reach.
--- NOTE | 2024-09-13 12:07 | NUR ---
AFTER PATIENT WAS DONE IN THE BATHROOM. AND HELPED HIM GET CHANGED AND CLEANED UP. DID HIS MORNING VITALS. GOT HIM BACK TO BED. PATIENT BRUSHED HIS TEETH AND WASHED HIS FACE.
--- NOTE | 2024-09-13 12:18 | NUR ---
PATIENT REFUSED PYSICAL THERAPY DO TO HIM BEING TIRED AND WANTING TO SLEEP.
--- NOTE | 2024-09-13 19:12 | NUR ---
SHIFT REPORT RECEIVED FROM GARRET CARCAMO AND JOSE CARCAMO.
--- NOTE | 2024-09-13 19:13 | NUR ---
BROUGHT PATIENT PEANUT BUTTER FOR HIS APPLES. ALSO WARMED UP HIS COFFEE.
--- NOTE | 2024-09-13 19:14 | NUR ---
PATIENT WAS NOT UP TO TAKING A SHOWER DO TO BEING VERY TIRED.
--- NOTE | 2024-09-13 19:15 | NUR ---
PT AWAKE AND ALERT, DENIES NEEDS AT THIS TIME, STATES HE HAD A GOOD DAY.
--- NOTE | 2024-09-13 20:58 | NUR ---
VS COMPLETED PER KELLEE SUPERVISOR STRIPPING, REVIEWED AND WNL FOR PT. PT WITHOUT REQUESTS AT THIS TIME.
--- NOTE | 2024-09-13 22:35 | NUR ---
PT RESTING LAYING ON RIGHT SIDE, ASSESSMENT COMPLETED, PT WITHOUT REQUESTS OR COMPLAINTS AT THIS TIME, IVF INFUSING WELL. BED LOW POSITION, SIDE RAILS UP X2.
--- NOTE | 2024-09-13 23:25 | NUR ---
PT APPEARS TO SLEEP, RESP EVEN AND REG, IVF INFUSING WELL PER ORDER. LERMA REMAINS TO GRAVITY, DRAINING LIGHT YELLOW URINE.
[2024-09-14] VITALS (9 sets, daily range): BP systolic 105–148; BP diastolic 40–73
--- NOTE | 2024-09-14 00:44 | NUR ---
PT RESTING QUIETLY ON RIGHT SIDE, RESP EVEN AND REG.
--- NOTE | 2024-09-14 01:30 | NUR ---
PT ASLEEP, LAYING ON RIGHT SIDE, RESP EVEN AND REG, IVF INFUSING WELL.
--- NOTE | 2024-09-14 02:30 | NUR ---
PT CONTINUES TO SLEEP, LERMA EMPTIED 1550 ML YELLOW URINE, IVF INFUSING WELL.
--- NOTE | 2024-09-14 03:40 | NUR ---
PT CONTINUES TO SLEEP, RESP EVEN AND REG.
--- NOTE | 2024-09-14 04:40 | NUR ---
PT CONTINUES TO SLEEP, RESP EVEN AND REG, IV INFUSING WELL.
[2024-09-14 05:20] LABS: BASOPHILS 0.4 % (0-2); EOSINOPHILS 7.2 % (0-6); HEMATOCRIT 25.9 % (35.0-50.0); HEMOGLOBIN 8.4 g/dL (12.0-18.0); LYMPHOCYTES 18.7 % (24-44); MCH 26.8 (27-36); MCHC 32.5 g/dl (30-36); MCV 82.6 fl (81-99); MONOCYTES 9.9 % (0-12); NEUTROPHILS 63.8 % (39-80); PLATELET COUNT 307 K/uL (140-440); RBC 3.13 M/ul (4.3-5.7); RDW 16.8 (10.5-15.0)
[2024-09-14 05:23] LABS: ANION GAP 9.1 (7-21); BUN/CREATININE RATIO 13.6 (6.0-28.6); CALCIUM 8.8 mg/dL (8.5-10.1); CREATININE, SERUM 1.25 mg/dL (0.70-1.30); MAGNESIUM 1.8 mg/dL (1.8-2.4); POTASSIUM 4.1 mmol/L (3.5-5.1)
--- NOTE | 2024-09-14 06:20 | NUR ---
PT AWAKE AND ALERT, VS REVIEWED AND STABLE, IV SITE REDRESSED, PATENT AND IV INFUSING WELL. PT DENIES PAIN AT THIS TIME, COFFEE GIVEN PER REQUEST.
--- NOTE | 2024-09-14 07:35 | NUR ---
PT AWAKE, SITTING IN BED. WARM WASH RAG PROVIDED. DENIES COFFEE OR WATER. DENIES BR NEEDS AT THIS TIME. REFUSED GETTING UP TO THE CHAIR AT THIS TIME AT STATES "I WORK WITH PHYSICAL THERAPY AND I'LL END UP IN THE CHAIR AT THAT TIME". DECLINED BRUSHING TEETH. DENIES ANY FURTHER NEEDS AT THIS TIME, CALL LIGHT IN REACH
--- NOTE | 2024-09-14 07:37 | NUR ---
PT ALERT AND INTERACTIVE AT TIME OF SHIFT REPORT. AGREES HE IS COMFORTABLE AND DENIES NEEDS OF. CALL LIGHT AND NEEDED ITEMS IN REACH.
--- NOTE | 2024-09-14 09:00 | NUR ---
PT SITTING UP IN BED EATING MORNING MEAL
--- NOTE | 2024-09-14 09:56 | NUR ---
PT RESTING IN BED. VITALS AND IS AND OS COMPLETE. LERMA EMPTIED. DENIES NEEDS AT THIS TIME, CALL LIGHT IN REACH
--- NOTE | 2024-09-14 10:32 | NUR ---
PT RETURNS TO RESTING EYES CLOSED AFTER MORNING MEAL
--- NOTE | 2024-09-14 10:59 | NUR ---
PT RESTING IN BED, RR EVEN AND UNLABORED. CALL LIGHT IN REACH
--- NOTE | 2024-09-14 11:38 | NUR ---
PT CONTINUES RESTING EYES CLOSED. FRESH H20 TO BEDSIDE CALL LIGHT ON TABLE
--- NOTE | 2024-09-14 12:42 | NUR ---
PT AWAKE AND SITTING UP FOR NOON MEAL AGREES HE HAS EVERYTHING HE NEEDS.
--- NOTE | 2024-09-14 13:37 | NUR ---
PATIENT SITTING UP IN BED WATCHING TV AT THIS TIME. VITALS AND I&O'S DONE AND CHARTED. CALL LIGHT IN REACH. NO FURTHER NEEDS AT THIS TIME.
--- NOTE | 2024-09-14 14:30 | NUR ---
PT UP IN THE CHAIR WATCHING TV DENIES DISCOMFORTS OR NEEDS OF
--- NOTE | 2024-09-14 16:55 | NUR ---
PT RESTING IN BED EYES CLOSED
--- NOTE | 2024-09-14 17:14 | NUR ---
PT AWAKE SITTING UP WITH EVENING MEAL DENIES NEEDS OF
--- NOTE | 2024-09-14 19:04 | NUR ---
SHIFT REPORT RECIEVED FROM ELIZABETH CARCAMO, PT APPEARS TO SLEEP, RESP EVEN AND REG.
--- NOTE | 2024-09-14 19:26 | NUR ---
PT RESTING WITH EYES CLOSED, RESP EVEN AND REG, IVF INFUSING AT 100ML/HR. SIDE RAILS UP X 2.
--- NOTE | 2024-09-14 21:00 | NUR ---
PT RESTING QUIETLY, WITHOUT REQUESTS.
--- NOTE | 2024-09-14 22:12 | NUR ---
VS COMPLETED PER GUI SANCHES, REVIEWED AND WNL.
--- NOTE | 2024-09-14 22:20 | NUR ---
PT ASLEEP, RESP EVEN AND REG, AWAKEN FOR ASSESSMENT, PT WITHOUT COMPLAINTS, IV SITE PATENT, LERMA EMPTIED 700ML DILUTE YELLOW URINE, PT BACK TO SLEEP WHEN LEFT UNDISTURBED, SIDE RAILS UP X 2, BED LOW POSITION.
--- NOTE | 2024-09-14 23:41 | NUR ---
PT CONTINUES TO SLEEP, RESP EVEN AND REG, LAYING ON LEFT SIDE.
--- NOTE | 2024-09-15 00:30 | NUR ---
PT SLEEPING RESP EVEN AND REG, LAYING ON SIDE, WITHOUT DISTRESS.
--- NOTE | 2024-09-15 01:00 | NUR ---
PT ASLEEP, RESP EVEN AND REG, NEW D5LR HUNG AND CONTINUES TO RUN AT 100ML/HR.
--- NOTE | 2024-09-15 01:29 | NUR ---
PT CONTINUES TO SLEEP, RESP EVEN AND REGULAR.
--- NOTE | 2024-09-15 03:04 | NUR ---
PT CONTINUES TO SLEEP, RESP EVEN AND REG. LAYING ON SIDE.
--- NOTE | 2024-09-15 04:00 | NUR ---
PT RESTING QUIETLY, REPOSITIONED HIMSELF, RESP REG.
[2024-09-15 05:32] LABS: BASOPHILS 1.3 % (0-2); EOSINOPHILS 3.2 % (0-6); HEMATOCRIT 26.4 % (35.0-50.0); HEMOGLOBIN 8.8 g/dL (12.0-18.0); LYMPHOCYTES 14.1 % (24-44); MCH 27.2 (27-36); MCHC 33.2 g/dl (30-36); MCV 81.7 fl (81-99); MONOCYTES 8.9 % (0-12); NEUTROPHILS 72.5 % (39-80); PLATELET COUNT 317 K/uL (140-440); RBC 3.23 M/ul (4.3-5.7); RDW 17.3 (10.5-15.0)
[2024-09-15 05:47] LABS: ANION GAP 9.2 (7-21); BUN/CREATININE RATIO 14.75 (6.0-28.6); CALCIUM 8.9 mg/dL (8.5-10.1); CREATININE, SERUM 1.22 mg/dL (0.70-1.30); POTASSIUM 4.2 mmol/L (3.5-5.1)
[2024-09-15 06:08] VITALS: BP 143/67
--- NOTE | 2024-09-15 06:08 | NUR ---
VS COMPLETED PER SINTA ASSEMBLER LATCHES AND SPRINGS, PT WITH NO COMPLAINTS REPORTED.
--- NOTE | 2024-09-15 06:55 | NUR ---
PT SLEEPING, RESP EVEN AND REG, IV PATENT AND INFUSING WELL. LERMA REMAINS TO GRAVITY, LIGHT YELLOW URINE.
[2024-09-15 07:19] VITALS: BP 143/67
--- NOTE | 2024-09-15 07:26 | NUR ---
PT AWAKE AND INTERACTIVE AT TIME OF SHIFT REPORT. DENIES NEEDS OR DISCOMFORTS. FRESH H20 TO BEDSIDE CALL LIGHT IN HAND
--- NOTE | 2024-09-15 09:20 | NUR ---
PT UPDATING FAMILY VIA PHONE. HOSPITALIST HAS BEEN IN TO SEE HIM EARLIER. PT DENIES QUESTIONS OR CONCERNS R/T DC TODAY.
[2024-09-15 09:30] VITALS: BP 124/69
== END 2024-09-15 10:51 | DRG 689 ==
LOC: ED 09:23 → MS 16:01
PROVIDERS: Emergency Medicine; ADMIT Student in an Organized Health Care Education/Training Program; ATTEND Student in an Organized Health Care Education/Training Program
DX: N13.6 Pyonephrosis (principal); E43 Unspecified severe protein-calorie malnutrition; I25.10 Atherosclerotic heart disease of native coronary artery without angina pectoris; J44.9 Chronic obstructive pulmonary disease, unspecified; N18.9 Chronic kidney disease, unspecified; R33.9 Retention of urine, unspecified; N17.9 Acute kidney failure, unspecified; N32.89 Other specified disorders of bladder; B96.20 Unspecified Escherichia coli [E. coli] as the cause of diseases classified elsewhere; F17.210 Nicotine dependence, cigarettes, uncomplicated; C67.9 Malignant neoplasm of bladder, unspecified; R32 Unspecified urinary incontinence; E87.6 Hypokalemia; Z95.0 Presence of cardiac pacemaker
CPT/HCPCS: 36415; 51702; 51798; 71045; 74177; 76770; 80048; 80053; 81001; 83690; 83735; 84100; 85025; 87077; 87088; 87186; 94640; 94760; 97116; 97161; 97165; 97530; 97535; 99285-25; A9270; J0696; J1650; J7040; J7121

== ENCOUNTER 2025-01-28 21:24 | Emergency (ER) | payer MEDICARE, OTHER ==
[~2025-01-28] VITALS: Ht 188 cm; Wt 66.6 kg
[2025-01-28] MEDS ORDERED: SODIUM CHLORIDE 0.9% 1,000 ML IV ONE (21:30)
[2025-01-28] MEDS ORDERED: BUDESONIDE0.5 MG/2 M (21:33)
[2025-01-28 21:43] LABS: BASOPHILS 0.9 % (0-2); EOSINOPHILS 2.6 % (0-6); HEMATOCRIT 34.2 % (35.0-50.0); HEMOGLOBIN 11.2 g/dL (12.0-18.0); MCH 26.1 (27-36); MCHC 32.8 g/dl (30-36); MCV 79.7 fl (81-99); MONOCYTES 2.2 % (0-12); NEUTROPHILS 87.3 % (39-80); PLATELET COUNT 416 K/uL (140-440); RBC 4.29 M/ul (4.3-5.7); RDW 18.8 (10.5-15.0)
[2025-01-28 21:58] LABS: ALBUMIN 2.8 g/dL (3.4-5.0); ALBUMIN/GLOBULIN RATIO 0.52 (1.1-2.4); ANION GAP 18.1 (7-21); BILIRUBIN, TOTAL 0.2 mg/dL (0.2-1.0); BUN/CREATININE RATIO 16.42 (6.0-28.6); CALCIUM 8.7 mg/dL (8.5-10.1); CREATININE, SERUM 2.07 mg/dL (0.70-1.30); POTASSIUM 4.1 mmol/L (3.5-5.1); PROTEIN, TOTAL 8.2 g/dL (6.4-8.2)
[2025-01-28] MEDS ORDERED: ALBUTEROL/IPRATROPIUM 3 ML NEB INH ONE (22:00)
[2025-01-28] MEDS ORDERED: METOPROLOL TARTRATE 5 MG/5 ML VIAL IV ONE (22:00)
[2025-01-28] MEDS ORDERED: methylPREDNISolone SOD SUCC 125 MG/2 ML VIAL IV ONE (22:00)
[2025-01-28 22:22] LABS: LACTIC ACID, BLOOD 3.6 mmol/L (0.4-2.0)
[2025-01-28 22:57] LABS: INFLUENZA B NAA NEGATIVE (NEGATIVE); RESPIRATORY SYNCYTIAL VIR NAA NEGATIVE (NEGATIVE)
[2025-01-28] MEDS ORDERED: SODIUM CHLORIDE 0.9% 500 ML IV PRN (23:15)
[2025-01-29 00:29] LABS: BILIRUBIN, URINE NEGATIVE (negative); BLOOD/HGB, URINE MODERATE (Negative); KETONE, URINE NEGATIVE (Negative); LEUK ESTERASE, URINE MODERATE (negative); NITRITE, URINE POSITIVE (negative); PH, URINE 5.5 (5-7)
[2025-01-29 00:34] LABS: BACTERIA, URINE 4+ /hpf (negative); RED BLOOD CELLS, URINE 0-1 /hpf (0-5); WHITE BLOOD CELLS, URINE >50 /HPF (0-5)
[2025-01-29 00:35] LABS: CASTS, URINE NONE SEEN \\lpf; COLLECTION TYPE, URINE CLEAN CATCH; CRYSTALS, URINE NONE SEEN (0-1+); EPITHELIAL CELLS, URINE 0 /lpf (0-1+); REFLEX CULTURE, URINE Yes (No)
[2025-01-29] MEDS ORDERED: SODIUM CHLORIDE 0.9% 1,000 ML IV SCH (00:45)
[2025-01-29] MEDS ORDERED: CEFTRIAXONE SODIUM 2 GM VIAL ONE (01:09)
[2025-01-29] MEDS ORDERED: CEFTRIAXONE SODIUM 2 GM in SODIUM CHLORIDE 0.9% 100 ML IV ONE (01:15)
[2025-01-29] MEDS ORDERED: VENTOLIN HFA18 GM INH (01:24)
[2025-01-29] MEDS ORDERED: methylPREDNISolone 4 MG HOME.PACK PO ONE (01:30)
[2025-01-29] MEDS ORDERED: CEFDINIR 300 MG HOME.PACK PO ONE (01:30)
[2025-01-29 05:40] VITALS: BP 113/53
--- NOTE | 2025-01-29 15:38 | EKG ---
[facility] [address] [facility] [place] [address] Signed Sinus tachycardia Incomplete right bundle branch block Right ventricular hypertrophy with repolarization abnormality Abnormal ECG When compared with ECG of 07-JUN-2024 10:51, No significant change was found Confirmed by Conner Huynh MD () on 01/29/2025 3:37:56 PM Electronically Signed By: CONNER HUYNH MD 01/29/25 1538 PATIENT NAME: RAMOS SANTOS Electrocardiogram DATE OF : 43 PHYSICIAN: CONNER HUYNH MD REPORT #: [id number] REPORT IS CONFIDENTIAL AND NOT TO BE RELEASED WITHOUT AUTHORIZATION
== END 2025-01-29 05:40 | disposition home or self-care (01) ==
LOC: ED 21:24
PROVIDERS: Family Medicine
DX: J44.1 Chronic obstructive pulmonary disease with (acute) exacerbation (principal); N39.0 Urinary tract infection, site not specified; I50.9 Heart failure, unspecified; I25.2 Old myocardial infarction; F17.200 Nicotine dependence, unspecified, uncomplicated; Z79.899 Other long term (current) drug therapy
CPT/HCPCS: 36415; 71045; 80053; 81001; 83605; 83880; 85025; 87040; 87077; 87088; 87186; 87502; 93005; 93010; 94640; 96365; 96366; 96375; 99285-25; J0696; J2919; J7030; J7040; U0002

== ENCOUNTER 2025-03-23 09:06 | Inpatient (IN) | payer MEDICARE, OTHER ==
[~2025-03-23] VITALS: Ht 188 cm; Wt 62.8 kg
[~2025-03-23 09:06] MED LIST changes: +BUDESONIDE0.5 MG/2 M INH
[2025-03-23 09:30] LABS: BASOPHILS 0.5 % (0-2); EOSINOPHILS 2.1 % (0-6); HEMATOCRIT 34.2 % (35.0-50.0); LYMPHOCYTES 8.6 % (24-44); MCH 25.8 (27-36); MCHC 32.1 g/dl (30-36); MCV 80.3 fl (81-99); NEUTROPHILS 78.8 % (39-80); PLATELET COUNT 233 K/uL (140-440); RBC 4.25 M/ul (4.3-5.7); RDW 18.9 (10.5-15.0)
[2025-03-23] MEDS ORDERED: DIPHENOXYLATE/ATROPINE 1 EA TAB PO ONE (09:30)
[2025-03-23] MEDS ORDERED: SODIUM CHLORIDE 0.9% 1,000 ML IV ONE (09:30)
[2025-03-23 09:47] LABS: ALBUMIN 2.9 g/dL (3.4-5.0); ALBUMIN/GLOBULIN RATIO 0.58 (1.1-2.4); ANION GAP 16.5 (7-21); BILIRUBIN, TOTAL 0.3 mg/dL (0.2-1.0); BUN/CREATININE RATIO 34.07 (6.0-28.6); CREATININE, SERUM 1.79 mg/dL (0.70-1.30); MAGNESIUM 2.2 mg/dL (1.8-2.4); POTASSIUM 3.5 mmol/L (3.5-5.1); PROTEIN, TOTAL 7.9 g/dL (6.4-8.2)
[2025-03-23] MEDS ORDERED: IPRAT-ALBUT 0.5-3 ML INH (09:49)
[2025-03-23] MEDS ORDERED: LIDOCAINE 2% VISCOUS 6 ML SYR TOP ONE (11:15)
[2025-03-23 11:39] LABS: BILIRUBIN, URINE NEGATIVE (negative); BLOOD/HGB, URINE MODERATE (Negative); KETONE, URINE NEGATIVE (Negative); LEUK ESTERASE, URINE LARGE (negative); NITRITE, URINE POSITIVE (negative)
[2025-03-23 11:47] LABS: EPITHELIAL CELLS, URINE SQUAMOUS 1+ /lpf (0-1+); WHITE BLOOD CELLS, URINE >50 /HPF (0-5)
[2025-03-23 11:48] LABS: CASTS, URINE NONE SEEN \\lpf; CRYSTALS, URINE NONE SEEN (0-1+)
[2025-03-23 11:50] LABS: BACTERIA, URINE 4+ /hpf (negative); COLLECTION TYPE, URINE CATH; REFLEX CULTURE, URINE Yes (No)
[2025-03-23] MEDS ORDERED: CEFTRIAXONE SODIUM 2 GM in SODIUM CHLORIDE 0.9% 100 ML IV ONE (14:15)
[2025-03-23] MEDS ORDERED: ACETAMINOPHEN 325 MG TAB PO PRN (16:45)
[2025-03-23] MEDS ORDERED: ondansetron HCL 4 MG/2 ML VIAL IV PRN (16:45)
[2025-03-23] MEDS ORDERED: VANCOMYCIN HCL 125 MG CAP PO SCH (17:00)
[2025-03-23] MEDS ORDERED: ALBUTEROL/IPRATROPIUM 3 ML NEB INH PRN (17:00)
[2025-03-23] MEDS ORDERED: SODIUM CHLORIDE 0.9% 1,000 ML IV SCH (17:30)
--- NOTE | 2025-03-23 18:03 | NUR ---
MED REC COMPLETE
[2025-03-23 18:04] VITALS: BP 120/54
--- NOTE | 2025-03-23 18:29 | NUR ---
Pt arrived to room at 1700 hours, transferred via ED stretcher by DONA Jin and SN Liliana Toussaint. Pt is A&O x4. Skin assessment done at this time. Pt report received from SN Liliana Toussaint. No-slip socks placed on pt's feet. Pt has a watch and a ring with him, no other valuables, declines to place them in the pt lockbox but states that if his son brings his wallet, he would like that to go into the lockbox. Stool sample needs to be collected and pt understands this. Pt states he normally doesn't have issues voiding but since he's been having diarrhea, he has. Pt oriented to room and call light. Pt's daughter in law arrived in room. Call light in reach.
--- NOTE | 2025-03-23 19:15 | NUR ---
REPORT RECEIVED FROM ADRIENNE CARCAMO. pt RESTING IN THE BED. BOARD UPDATED. pt DENIES ANY OTHER NEEDS AT THIS TIME. CALL LIGHT WITHIN REACH.
[2025-03-23] MEDS ORDERED: LACTATED RINGER'S 1,000 ML IV SCH (19:30)
[2025-03-23 19:43] VITALS: BP 102/46
[2025-03-23 20:00] VITALS: BP 102/46
--- NOTE | 2025-03-23 20:30 | NUR ---
ASSESSMENT AND VITAL SIGNS DONE. IV ASSESSED, WNL. IVF INFUSING PER ORDER, SEE MAR. NO BM'S AT THIS TIME. ICE WATER REFRESHED. pt DENIES ANY OTHER NEEDS AT THIS TIME. CALL LIGHT WITHIN REACH.
[2025-03-23] MEDS ORDERED: BUDESONIDE 0.5 MG/2 ML VIAL INH SCH (21:00)
--- NOTE | 2025-03-23 23:27 | NUR ---
pt RESTING IN THE BED WITH EYES CLOSED. RR EVEN AND UNLABORED. CALL LIGHT WITHIN REACH.
[2025-03-23] MEDS ORDERED: VANCOMYCIN HCL 125 MG CAP PO ONE (23:45)
[2025-03-24] VITALS (10 sets, daily range): BP systolic 100–116; BP diastolic 46–64
--- NOTE | 2025-03-24 00:11 | NUR ---
IN RM TO ADMINISTER pt PO ABX. THIS RN ASSISTED pt TO THE BSC. pt HAD A LARGE LIQUID BM. STOOL SAMPLE COLLECTED. pt DENIES ANY OTHER NEEDS AT THIS TIME. CALL LIGHT WITHIN REACH. BRIEF CHANGED. GOWN CHANGED.
--- NOTE | 2025-03-24 03:05 | NUR ---
Went into patients room after 2am to take his vitals. Also brought him fresh ice water. Call light is within reach and nothing else is needed at this time.
[2025-03-24 05:29] LABS: BASOPHILS 0.6 % (0-2); EOSINOPHILS 3.7 % (0-6); HEMATOCRIT 28.5 % (35.0-50.0); HEMOGLOBIN 9.3 g/dL (12.0-18.0); LYMPHOCYTES 11.2 % (24-44); MCH 26.1 (27-36); MCHC 32.5 g/dl (30-36); MCV 80.2 fl (81-99); MONOCYTES 10.8 % (0-12); NEUTROPHILS 73.7 % (39-80); PLATELET COUNT 193 K/uL (140-440); RBC 3.55 M/ul (4.3-5.7); RDW 18.9 (10.5-15.0)
--- NOTE | 2025-03-24 05:31 | NUR ---
IN RM TO DO ASSESSMENT AND VITAL SIGNS. pt DENIES NEEDING A BRIEF CHANGE. BOWEL TONES ACTIVE. IV PUMP CLEARED. pt DENIES ANY OTHER NEEDS AT THIS TIME. CALL LIGHT WITHIN REACH.
[2025-03-24 05:38] LABS: ANION GAP 14.7 (7-21); BUN/CREATININE RATIO 30.98 (6.0-28.6); CALCIUM 8.3 mg/dL (8.5-10.1); CREATININE, SERUM 1.42 mg/dL (0.70-1.30); MAGNESIUM 1.7 mg/dL (1.8-2.4); POTASSIUM 3.7 mmol/L (3.5-5.1)
--- NOTE | 2025-03-24 07:33 | NUR ---
PT RESTING EYES CLOSED AT TIME OF SHIFT REPORT LEFT UNDISTURBED. BED ALARM IS SET. FRESH H20 TO BEDSIDE CALL LIGHT IN REACH.
--- NOTE | 2025-03-24 07:41 | NUR ---
UR CLINICAL REVIEW: 2 MN FOR VERSALUS-PER NURSING EXECUTIVE MEETS INPT FOR C-DIFF WITH NEED FOR ABX MEDICARE INPT 03/23/25 @ 8566 ORDER MATCHES REG NO AUTH REQUIRED PER MEDICARE GUIDELINES DISCHARGE TO HOME WHEN STABLE
--- NOTE | 2025-03-24 08:05 | NUR ---
PT DENIES CHAIR FOR MORNING MEAL SET UP IN BED. AGREES HE IS COMFORTABLE AND WITHOUT NEED
[2025-03-24] MEDS ORDERED: MAGNESIUM SULFATE 2 GM/50 ML BAG IV SCH (09:00)
[2025-03-24] MEDS ORDERED: CEFTRIAXONE SODIUM 1 GM in SODIUM CHLORIDE 0.9% 100 ML IV SCH (09:00)
[2025-03-24] MEDS ORDERED: ENOXAPARIN SODIUM 40 MG/0.4 ML SYR SUB-Q SCH (09:00)
[2025-03-24] MEDS ORDERED: POTASSIUM CHLORIDE 10 MEQ TABCR PO ONE (09:00)
--- NOTE | 2025-03-24 09:15 | NUR ---
PT COMPLETES 100% OF MORNING MEAL HE IS TALKING ON THE PHONE AT THIS TIME
--- NOTE | 2025-03-24 10:48 | NUR ---
PT WORKED WITH P/T WELL TOLERATED SITTING IN THE CHAIR AT THIS TIME CALL LIGHT IN HIS LAP
--- NOTE | 2025-03-24 11:04 | NUR ---
[facility] COMPLETED BACK SIDE SLIGHTLY RED BUT INTACT SKIN IS BLANCHABLE. PT AGREES HE IS COMFORTABLE IN THE CHAIR WITHOUT NEED
--- NOTE | 2025-03-24 11:16 | NUR ---
ALERT AND ORIENTED IN RECLINER. LIVES IN APARTMENT WITH SON, [id number] AND GRANDDAUGHTER. STATES THEY HAVE 4 STEPS TO GET IN. HAS [employer]ANDRAIL. HAS A CANE AND SHOWER CHAIR. DOES NOT DRIVE, FAMILY PROVIDES TRANSPORTATION. HAS NO FINANCIAL DIFFICULTY PAYING UTILITIES AND FOR FOOD OR MEDICATIONS. FAMILY DOES HELP HIM AT HOME. STATES HE IS OPEN TO SNF RECOMMENDED BY OT. WOULD PREFER TO STAY IN [place] WHEN PATIENT CHOICES PROVIDED HE WANTS TO GO TO [facility]. CHART FAXED TO [facility] AND CALEB NOTIFIED OF REFERRAL.
--- NOTE | 2025-03-24 11:48 | NUR ---
CALEB FROM [facility] STATES THEY CAN ACCEPT PATIENT WHEN HE IS READY TO DC.
[2025-03-24] MEDS ORDERED: PHARMACY RENAL DOSE ADJUSTMENT 1 DOSE MISC PO SCH (12:00)
--- NOTE | 2025-03-24 12:25 | NUR ---
PT UNDERGARMENT IS DRY, ENCOURAGED HIM TO CALL FOR ANY NEEDS. NOON MEAL SERVED PT SITTING IN RECLINER CALL LIGHT IN LAP
--- NOTE | 2025-03-24 12:27 | NUR ---
PT NOT AVAILABLE FOR VISIT. PROVIDED PRAYER.
--- NOTE | 2025-03-24 13:14 | NUR ---
PT SITTING UP IN CHAIR WATCHING TV AGREES HE IS COMFORTABLE WARM BLANKET PROVIDED PER REQUEST
--- NOTE | 2025-03-24 13:31 | NUR ---
PT IN RECLINER BEGINS TO SHAKE AND C/O OF A SIDE ACHE. VITALS WNL. PT ASSISTED TO THE BED WARM BLANKET PROVIDED PT AGREES HE FEELS BETTER NO LONGER SHAKING. PT STATES THIS HAS BEEN GOING ON FOR QUITE SOMETIME THAT HE BEGAN TO SHAKE AT HOME ONE TIME AND IT WAS UNCONTROABLE. PT APPEARS RECOVERED AT THIS TIME VISITING CHEERFULLY DENIES NEEDS OR CONCERNS
--- NOTE | 2025-03-24 15:18 | NUR ---
PT CONTINUES WITHOUT FURTHER SHAKE OR OTHER DISCOMFORT. RESTING IN BED WATCHING TV DENIES NEEDS OF
--- NOTE | 2025-03-24 15:45 | NUR ---
PT RESTING SUPINE WATCHING TV DENIES NEED OF ANYTHING
--- NOTE | 2025-03-24 18:40 | NUR ---
PT INCONT OF STOOL AND URINE UNDERGARMENTS CHANGED AND [facility] PROVIDED
--- NOTE | 2025-03-24 19:10 | NUR ---
REPORT RECEIVED FROM ELIZABETH CARCAMO. pt RESTING IN THE BED. BOARD UPDATED. pt DENIES ANY OTHER NEEDS AT THIS TIME. CALL LIGHT WITHIN REACH.
--- NOTE | 2025-03-24 20:10 | NUR ---
ASSESSMENT AND VITAL SIGNS DONE. HYPERACTIVE BOWEL TONES IN THE LOWER LLQ AND RLQ. pt BREIF DRY AT THIS TIME. IV ASSESSED, WNL. pt DENIES ANY PAIN AT THIS TIME. CALL LIGHT WITHIN REACH.
--- NOTE | 2025-03-24 23:15 | NUR ---
pt RESTING IN THE BED WITH EYES CLOSED. RR EVEN AND UNLABORED. CALL LIGHT WITHIN REACH.
--- NOTE | 2025-03-25 01:53 | NUR ---
IN RM TO CHECK ON pt AND GOT pt UP TO THE BSC. pt BRIEF CHANGED. pt DENEIS ANY OTHER NEEDS AT THIS TIME. CALL LIGHT WITHIN REACH.
--- NOTE | 2025-03-25 03:46 | NUR ---
pt RESTING IN THE BED WITH EYES CLOSED. RR EVEN AND UNLABORED. CALL LIGHT WIHTHIN REACH.
--- NOTE | 2025-03-25 05:13 | NUR ---
INSULATION ENGINEMAN IN RM TO DO VITAL SIGNS AND DAILY WEIGHT. pt DENIES HAVING TO PEE AT THIS TIME. pt DENIES ANY OTHER NEEDS AT THIS TIME. CALL LIGHT WITHIN REACH.
[2025-03-25 05:14] VITALS: BP 98/51
[2025-03-25 05:19] LABS: BASOPHILS 0.5 % (0-2); HEMATOCRIT 28.2 % (35.0-50.0); HEMOGLOBIN 9.2 g/dL (12.0-18.0); LYMPHOCYTES 11.7 % (24-44); MCH 26.2 (27-36); MCHC 32.8 g/dl (30-36); MCV 79.8 fl (81-99); MONOCYTES 11.5 % (0-12); NEUTROPHILS 72.3 % (39-80); PLATELET COUNT 185 K/uL (140-440); RBC 3.54 M/ul (4.3-5.7)
[2025-03-25 05:30] LABS: BUN/CREATININE RATIO 22.72 (6.0-28.6); CALCIUM 8.2 mg/dL (8.5-10.1); CREATININE, SERUM 1.54 mg/dL (0.70-1.30); MAGNESIUM 2.4 mg/dL (1.8-2.4)
--- NOTE | 2025-03-25 07:15 | NUR ---
VERBAL REPORT RECEIVED FROM DONA TRAVIS. PT RESTS IN BED WITH EYES CLOSED, RESP EVEN AND UNLABORED.
--- NOTE | 2025-03-25 09:41 | NUR ---
PT NOT AVAILABLE FOR VISIT. PROVIDED PRAYER.
[2025-03-25 10:50] VITALS: BP 130/49
[2025-03-25 11:13] LABS: SODIUM,STOOL 48 mmol/L (())
[2025-03-25 11:26] LABS: OSMOLALITY FECAL 388 mOsm/kg (280-303)
--- NOTE | 2025-03-25 11:48 | NUR ---
AFTER I DID PATIENT'S MORING VITALS AND BROUGHT HIM A CUP OF COFFEE AND ICE WATER. CHANGED PATIENT'S BED LINENS.
--- NOTE | 2025-03-25 13:00 | NUR ---
Spoke with Sarbjit. He would like to admit to [facility] when he leaves the hospital in 1-2 days. Plans at this time per pt are to have a colonoscopy tomorrow.
[2025-03-25 13:26] VITALS: BP 123/65
[2025-03-25] MEDS ORDERED: POLYETHYLENE GLYCOL 3350 BOTTLE PO ONE (16:30)
--- NOTE | 2025-03-25 16:39 | NUR ---
DR. HUYNH NOTIFIED OF LOW URINE OUTPUT THIS SHIFT. UNABLE TO DISCERN URINE FROM LOOSE STOOL. NO URINE NOTED IN BREIF. BLADDER SCAN SHOWS 248 MLS IN BLADDER AND PVR OF 217 ML AFTER PASSING STOOL ON BSC, PT ATTEMPTED TO VOID BUT STATES HE COULD NOT TELL IF HE HAD. NEW ORDERS RECEIVED.
[2025-03-25] MEDS ORDERED: SODIUM CHLORIDE 0.9% 1,000 ML IV SCH (16:45)
[2025-03-25 18:12] VITALS: BP 143/62
--- NOTE | 2025-03-25 18:56 | NUR ---
AFTER HIS VITALS WERE DONE PATIENT WANTED TO GO BACK TO BED. NURSE BROUGHT IN A WARM BLANKET. HEAD OF BED IS UP. PATIENT WATCHING TV. CALL LIGHT WITH IN REACH AND HIS PHONE.
--- NOTE | 2025-03-25 19:10 | NUR ---
REPORT RECEIVED FROM STUART CARCAMO. pt RESTING IN THE BED. BOARD UPDATED. pt ENCOURAGED TO DRINK THE REST OF HIS BOWEL PREP. pt DENIES ANY OTHER NEEDS AT THIS TIME. CALL LIGHT WITHIN REACH.
[2025-03-25 19:59] VITALS: BP 126/51
[2025-03-25 20:10] VITALS: BP 126/51
--- NOTE | 2025-03-25 20:10 | NUR ---
ASSESSMENT AND VITAL SIGNS DONE. BOWEL TONES ACTIVE. pt BRIEF DRY AT THIS TIME. pt ENCOURAGED TO DRINK HIS BOWEL PREP. IV ASSESSED, WNL. SCHEDULED MEDS ADMINISTERED. pt DENIES ANY OTHER NEEDS AT THIS TIME. CALL LIGHT WITHIN REACH.
[2025-03-25 21:42] LABS: TISSUE TRANSGLUTAMINAS TTG,IGA 148.27 FLU (0.00-4.99); TISSUE TRANSGLUTAMINASE AB,IGG <0.82 FLU (0.00-4.99)
--- NOTE | 2025-03-25 21:47 | NUR ---
IN RM TO ENCOURAGE pt TO TAKE HIS BOWEL PREP. pt TOOK A DRINK. NO OTHER NEED AT THIS TIME. CALL LIGHT WITHIN REACH.
[2025-03-25 22:10] LABS: LACTOFERRIN,FECAL BY ELISA Negative (Negative)
--- NOTE | 2025-03-25 22:38 | NUR ---
IN RM TO ENCOURAGE pt TO DRINK HIS BOWEL PREP. pt STATES HIS STOMACH FEEL LIKE IT IS CRAMPING RIGHT NOW. THIS RN ENCOURAGE pt TO GET UP TO THE BSC. 1PA TO THE BSC. pt WILL CALL WHEN DONE. NO OTHER NEEDS AT THIS TIME. CALL LIGHT WITHIN REACH.
--- NOTE | 2025-03-25 23:42 | NUR ---
IN RM TO CHECK ON pt. THIS RN ENCOURAGED pt TO DRINK HIS BOWEL PREP. pt IS DRINKING WHAT HE CAN. pt DENIES ANY OTHER NEEDS AT THIS TIME. CALL LIGHT WITHIN REACH.
[2025-03-26] VITALS (12 sets, daily range): BP systolic 111–140; BP diastolic 52–89
--- NOTE | 2025-03-26 00:16 | NUR ---
IN RM TO CHECK ON pt. pt ONLY ABLE TO DRINK ONE AND A QUATER BOTTLES OF BOWEL PREP. pt NOW NPO. pt BLADDER SCANNED FOR 280mL. pt DENIES ANY OTHER NEEDS AT THIS TIME. CALL LIGHT WITHIN REACH.
--- NOTE | 2025-03-26 02:30 | NUR ---
pt UP TO THE BSC TO TRY AND HAVE A BM. BRIEF CHANGED. pt DENIES ANY OTHER NEEDS AT THIS TIME. CALL LIGHT WITHIN REACH.
--- NOTE | 2025-03-26 04:40 | NUR ---
pt UP TO THE BSC TO TRY AND HAVE A BM. pt HAD A LIQUID STOOL. BRIEF CHANGED pt URINATED IN THE BRIEF AND THE BSC. pt BACK TO BED. pt DENIES ANY OTHER NEEDS AT THIS TIME. CALL LIGHT WITHIN REACH.
[2025-03-26 05:19] LABS: BASOPHILS 0.5 % (0-2); EOSINOPHILS 3.2 % (0-6); HEMATOCRIT 27.7 % (35.0-50.0); HEMOGLOBIN 8.9 g/dL (12.0-18.0); LYMPHOCYTES 9.1 % (24-44); MCH 25.8 (27-36); MCHC 32.1 g/dl (30-36); MCV 80.5 fl (81-99); MONOCYTES 10.7 % (0-12); NEUTROPHILS 76.5 % (39-80); PLATELET COUNT 167 K/uL (140-440); RBC 3.44 M/ul (4.3-5.7); RDW 18.9 (10.5-15.0)
[2025-03-26 05:30] LABS: ANION GAP 19.5 (7-21); BUN/CREATININE RATIO 16.42 (6.0-28.6); CREATININE, SERUM 1.4 mg/dL (0.70-1.30); MAGNESIUM 1.8 mg/dL (1.8-2.4); POTASSIUM 3.5 mmol/L (3.5-5.1)
--- NOTE | 2025-03-26 07:30 | NUR ---
REPORT RECEIVED FROM DONA TRAVIS. PATIENT IS AWAKE AND ALERT RESTING IN BED, NO REQUESTS AT THIS TIME. CALL LIGHT AND PERSONAL BELONGINGS IN REACH.
--- NOTE | 2025-03-26 07:57 | CONS ---
[facility] [address], [place] [address] Signed DATE OF CONSULTATION: 03/25/2025 REQUESTING PHYSICIAN: Dr. Boswell. PROBLEM: Intractable diarrhea, etiology unknown. HISTORY OF PRESENT ILLNESS: This 79-year-old white man was admitted on March 23, 2025, having presented to the emergency room and evaluated by Dr. Saez. He has had several days of watery diarrhea despite using a "whole bottle of Imodium." He has had cramps, but no specific abdominal pain and no blood per rectum. He was on cefdinir in January and C difficile testing is reported as normal. Separate and distinct was difficulty of urination. The patient has had bladder cancer treated surgically last year and a CT scan in the past has shown bladder wall thickening and bilateral hydronephrosis. He has been hospitalized and stool studies obtained, which unfortunately are incomplete, though C difficile was said to be negative. He did have a urine cath specimen, which was positive for gram-negative bacilli. Pending stool studies include E coli, Campylobacter, Salmonella and Shigella as well as ova and parasites. The patient has been fed though was placed to a liquid diet today. His admission laboratory studies show a slightly elevated white count of 11.8 with hematocrit 34.2, and platelet count of 233,000. Chem profile at admission was 1.42, creatinine today 1.54. Urinalysis as previously noted was abnormal and consistent with urinary tract infection with greater than 50 white cells per high-power field. A celiac test is pending. C difficile toxin PCR was negative. The patient tells me he is feeling somewhat better. He has not had a truly solid bowel movements that things are less thin than before. He has had no associated blood per rectum. PAST MEDICAL HISTORY: In addition to bladder cancer has been notable for no prior colonoscopy and certainly no colon surgery of any sort. Other medical issues include chronic kidney disease, history of coronary artery disease, urinary tract infection (currently), and of course chronic diarrhea, which has been going on for several weeks apparently. REVIEW OF SYSTEMS: He denies any chest pain or shortness of breath. He has had no hematemesis or blood per rectum. Denies dysuria. 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 Height 62 inches, weight 63 kg. BMI 18. HEENT: Trachea is midline. Mucous membranes reasonably moist. He has a cisneros fiore. CHEST: Shows normal respiratory excursion. Pulses regular. ABDOMEN: Nondistended. EXTREMITIES: Mild edema. DIAGNOSTIC DATA: CT scan images from March 23 were reviewed in detail, noting a pacemaker in place. The liver itself appears normal. Gallbladder is mildly distended, but without sign of acute inflammation. There appeared to be some thickening of the duodenum, which may represent a contraction artifact. He has a calcific aorta. Small bowel loops were air and fluid-filled. ASSESSMENT AND PLAN: The patient has significant ongoing diarrhea for quite some time, not revealed as to etiology based on current findings. Stool studies are pending largely. The C difficile was negative. I would recommend colonoscopy be undertaken after bowel prep. IV sedation with anesthesia support would be appropriate. The purpose of colonoscopy would be to assess for occult colitis, neoplasm, or other finding that would account for his diarrhea problem. The risk of bleeding, infection, and perforation were reviewed with him. He understands and wished to proceed. We will plan for colonoscopy tomorrow as an add on case and anticipate a bowel prep today. MD EULA Schrader/JENNIFERL /[id number] cc: MD Dr. Rafi [place] Electronically Signed By: ZACH RICO MD 03/26/25 0757 PATIENT NAME: RAMOS SANTOS CONSULTATION DATE OF : 43 REPORT #: [id number] PHYSICIAN: ZACH RICO MD PCP: KATEY FU MD REPORT IS CONFIDENTIAL AND NOT TO BE RELEASED WITHOUT AUTHORIZATION [facility] [address] [place] [id number] Signed Copies: ANTHONY SAEZ MD ~ Electronically Signed By: ZACH RICO MD 03/26/25 0757 PATIENT NAME: RAMOS SANTOS CONSULTATION DATE OF : 43 REPORT #: [id number] PHYSICIAN: ZACH RICO MD PCP: KATEY FU MD REPORT IS CONFIDENTIAL AND NOT TO BE RELEASED WITHOUT AUTHORIZATION
--- NOTE | 2025-03-26 08:41 | NUR ---
PATIENT RESTING IN BED ON RIGHT SIDE, EYES CLOSED, RR EVEN AND UNLABORED. NS INFUSING WNL. CALL LIGHT AND PERSONAL BELONGINGS IN REACH.
--- NOTE | 2025-03-26 09:25 | NUR ---
MEDICATION ADMINISTERED, SEE MAR. ASSESSMENT COMPLETE. CLAIRE FROM [facility] ARRIVES FOR BREATHING TREATMENT. PATIENT HAS NO REQUESTS AT THIS TIME, CALL LIGHT AND PERSONAL BELONGINGS IN REACH.
--- NOTE | 2025-03-26 10:14 | NUR ---
PATIENT WAS IN BED AT THIS TIME, PT NEEDED ASSISTANCE HELPING PATIENT TO THE COMMODE. DECAL TRANSFERRER GOT A NEW KACY PAD AND DRAW SHEET, WARM BLANKET FROM THE WARMER. PT GOT A NEW BREIF AND GOWN. CALL LIGHT WIHT IN REACH AND NOTHING ELSE NEEDED AT THIS TIME.
--- NOTE | 2025-03-26 10:31 | NUR ---
PATIENT UP IN RECLINER WITH BLE ELEVATED, REPORTS FEELING COLD AND IS SHIVERING. WARM BLANKETS PROVIDED. PATIENT REPORTS FEELING WARMER, CONTINUES TO SHIVER. PATIENT REMAINS UP IN RECLINER, CONVERSING WITH THIS RN ABOUT HIS PAST. PATIENT HAS NO REQUESTS AT THIS TIME, CALL LIGHT AND PERSONAL BELONGINGS IN REACH.
--- NOTE | 2025-03-26 10:34 | NUR ---
PT NOT AVAILABLE FOR VISIT. PROVIDED PRAYER.
[2025-03-26] MEDS ORDERED: LACTATED RINGER'S 1,000 ML IV SCH (11:45)
--- NOTE | 2025-03-26 11:48 | NUR ---
PATIENT ASSISTED FROM RECLINER TO HOSPITAL BED WITH MODERATE ASSIST TO STAND, SBA FOR AMBULATING. ANESTHESIA HAS ARRIVED TO SEE PATIENT. CALL LIGHT IN REACH. NO REQUESTS.
--- NOTE | 2025-03-26 12:45 | NUR ---
IV FLUID SWITCHED FROM NS TO LR ORDERED. PATIENT IV IN LEFT AC FLUSHES WNL. PATIENT IS RESTING IN BED WITH EYES CLOSED, RR EVEN AND UNLABORED, STATES HE WILL TAKE A NAP BEFORE HEADING TO HIS COLONOSCOPY. PATIENT HAS NO REQUESTS, CALL LIGHT AND PERSONAL BELONGINGS IN REACH.
--- NOTE | 2025-03-26 13:11 | NUR ---
PATIENT'S SON CALLS REQUESTING UPDATE. UPDATE PROVIDED. ALL QUESTIONS ANSWERED, CONCERNS ADDRESSED.
--- NOTE | 2025-03-26 13:28 | NUR ---
Received a return call from [facility] after I spoke with Dr. Luis. Pt will have a colonoscopy today with possible dc to [place] in 1-3 days. [facility] will check to see if they can accept this pt on the weekend, but does not see it as an issue.
--- NOTE | 2025-03-26 14:08 | NUR ---
BRIEF REMOVED, GORDO-CARE PROVIDED AND BARRIER CREAM APPLIED. PATIENT REMOVES RINGS, WATCH, AND DENTURES AT THIS TIME. PATIENT IVF DISCONTINUED, PATIENT PLACED ON LR WITH EXTENDED TUBING, DRIP PATENCY VERIFIED. PATIENT HAS NO REQUESTS, CALL LIGHT AND PERSONAL BELONGINGS IN REACH.
--- NOTE | 2025-03-26 14:19 | NUR ---
SAND POLISHER GREYSON ARRIVES AND TAKES PATIENT TO SURGICAL AREA. PATIENT IS OFF THE FLOOR AT THIS TIME.
[2025-03-26] MEDS ORDERED: propofoL 200 MG/20 ML VIAL ONE (14:37)
[2025-03-26] MEDS ORDERED: LIDOCAINE HCL 2% 5 ML SDV ONE (14:37)
--- NOTE | 2025-03-26 15:13 | NUR ---
PATIENT REMAINS OFF THE FLOOR AT THIS TIME.
[2025-03-26] MEDS ORDERED: PHENYLEPHRINE HCL 10 MG/ML VIAL ONE (15:16)
[2025-03-26] MEDS ORDERED: PSYLLIUM SEED 1 PKT PACKET PO SCH (15:45)
--- NOTE | 2025-03-26 16:00 | NUR ---
PATIENT RETURNS TO FLOOR IN STRETCHER ESCORTED BY DONA OSBORNE. PATIENT SCOOTCHES HIMSELF FROM STRETCHER TO HOSPITAL BED. FRESH BRIEF APPLIED. WARM BLANKETS APPLIED. PATIENT REPORTS HE FEELS THIRSTY. DENTURES SUPPLIED, PATIENT PUTS THESE BACK IN AND THEN DRINKS 300ML OF ICE WATER AND REQUESTS MORE. MORE WATER PROVIDED. VS OBTAINED AND RECORDED. IV TO LEFT IV IS LEAKY WITH INITIAL FLUSHING, BUT DOES FLUSH. IV IS SALINE LOCKED AT THIS TIME PER MD VERBAL ORDERS, PATIENT IS TOLERATING PO LIQUIDS. PATIENT IS RESTING ON HIS LEFT SIDE IN BED, REPORTS FEELING COLD. PATIENT TUCKED UNDER SEVERAL BLANKETS, THERMOSTAT ADJUSTED. PATIENT ALLOWED REST AT THIS TIME. CALL LIGHT AND PERSONAL BELONGINGS IN REACH.
[2025-03-26] MEDS ORDERED: LOPERAMIDE HCL 2 MG CAP PO SCH (17:00)
--- NOTE | 2025-03-26 17:06 | NUR ---
VS OBTAINED AND RECORDED. PATIENT CONTINUES DRINKING WATER AND TOLERATING WELL, ALSO CONTINUES TO REPORT FEELING COLD. FRESH WARM BLANKETS PROVIDED. PATIENT REPORTS HE HAS SPOKEN TO HIS SON TO UPDATE HIM. PATIENT HAS NO REQUESTS, CALL LIGHT AND PERSONAL BELONGINGS IN REACH.
--- NOTE | 2025-03-26 17:32 | NUR ---
03/26/25 1732 Sheets,Elsa 1522 PT ARRIVED TO PACU ON 6L VIA MASK, CHIN LIFT USED TO MAINTAIN AIRWAY OFF AND ON. DECREASED BP NOTED. RESP EVEN AND UNLABORED. PT NONAROUSABLE TO TACTILE STIMULI. 1533 PT WAKES TO TACTILE STIMULI AND O2 MASK REMOVED, PT REROIENTED TO PACU. PT DENEIS CONCERNS AND EASILY FALLS BACK TO SLEEP. 1545 MD AT BEDSIDE. 1550 PT ROLLS TO BACK AND IS MORE AWAKE TALKING TO RN. PT REPORTS HAVING A DRY MOUTH. 1600 PT RETURNED TO ROOM ON MED-SURG AND TRANSFERED HIMSELF TO BED. REPORT TO MED-ASSOCIATE SOFTWARE DEVELOPER AND ALL QUESTIONS ANSWERED. DISCSUSED IV WITH FLOOR MD.
--- NOTE | 2025-03-26 17:38 | NUR ---
PATIENT ASSISTED TO SIT UP IN BED. DINNER TRAY SET UP FOR HIM, MUSIC TURNED ON THE TV. NO REQUESTS AT THIS TIME, CALL LIGHT AND PERSONAL BELONGINGS IN REACH.
--- NOTE | 2025-03-26 19:01 | NUR ---
PATIENT ENCOURAGED TO TRY AND USE URINAL. PATIENT NOTED TO HAVE SATURATED BRIEF. GORDO-CARE PROVIDED, BRIEF CHANGED. PATIENT STANDS AT BEDSIDE WITH FWW AND ATTEMPTS TO USE URINAL BUT IS NOT SUCCESSFUL. PATIENT REPORTS FEELING "FUNNY" AND SITS BACK DOWN ON THE BED. PATIENT IS EXPERIENCING SHORTNESS OF BREATH AND OVERALL MALAISE, RESOLVED AFTER RESTING BACK IN BED FOR APPROXIMATELY 5 MINUTES. PATIENT EDUCATED ON MALE PUREWICK USE. PATIENT AGREEABLE TO TRYING. MALE PUREWICK PLACED BY MYRON BEGUM AND HOOKED TO WALL SUCTION. PATIENT RESTING IN BED ON HIS BACK, EYES CLOSED, RR EVEN AND UNLABORED. CONTINUES TO REPORT FEELING COLD. WARM BLANKETS PROVIDED. BLADDER SCAN USED SHOWS 188ML. PATIENT HAS NO OTHER REQUESTS, CALL LIGHT AND PERSONAL BELONGINGS IN REACH.
--- NOTE | 2025-03-26 19:23 | NUR ---
Patient is in bed at this time, SOLVENT RECOVERER assisted RN Kenya in vitals and putting a purewick on patient. He has voided since his procedure, but not aware. Which is why we provided the purewick. SOLVENT RECOVERER got fresh ice water and warm blankets for patient. He still has not finished his dinner, agricultural sciences professor charted vitals and i&o's. Call light with in reach and nothing else needed at this time.
--- NOTE | 2025-03-26 19:38 | NUR ---
RECEIVED REPORT. PT RESTING IN BED WITH CLOSED EYES, RISE AND FALL OF CHEST OBSERVED. CALL LIGHT IN REACH
--- NOTE | 2025-03-26 20:06 | NUR ---
PER MD: OK TO DC IV FLUIDS GIVEN ADEQUATE PO INTAKE. MONITOR I&OS OVERNIGHT.
--- NOTE | 2025-03-26 20:17 | NUR ---
VITALS, ASSESSMENT, EVENING MEDS. PT TOLERATING REGULAR DIET WELL, PLENTY OF PO INTAKE. OK TO LEAVE FLUIDS OFF PER MD GIVEN ADEQUATE FLUIDS. NO NEEDS PRESENTLY, CALL LIGHT IN REACH
--- NOTE | 2025-03-26 22:44 | NUR ---
RESTING WITH CLOSED EYES, RISE AND FALL OF CHEST OBSERVED. CALL LIGHT INREACH
--- NOTE | 2025-03-27 00:40 | NUR ---
PT RESTING IN BED WITH EYES CLOSED, RISE AND FALL OF CHEST OBSERVED, CALL LIGHT IN REACH
[2025-03-27 02:50] VITALS: BP 103/44
--- NOTE | 2025-03-27 02:57 | NUR ---
VITALS. BP 103/44, MAP 55. PT AGREES HE FEELS "DRY". RESTARTED IV FLUIDS, IV SITE FLUSHING WELL CURRENTLY. INSTRUCTED PT TO CALL IF NOTICING ANY LEAKING/INFILTRATION, PT AGREES WITH PLAN. NO OTHER NEEDS, CALL LIGHT INREACH
[2025-03-27 03:02] VITALS: BP 103/44
--- NOTE | 2025-03-27 05:11 | NUR ---
PT RESTING IN BED WITH EYES CLOSED, RISE AND FALL OF CHEST OBSERVED. CALL LIGHT IN REACH
[2025-03-27 05:12] LABS: BASOPHILS 0.5 % (0-2); EOSINOPHILS 4.3 % (0-6); HEMATOCRIT 26.5 % (35.0-50.0); HEMOGLOBIN 8.6 g/dL (12.0-18.0); LYMPHOCYTES 6.8 % (24-44); MCH 25.9 (27-36); MCHC 32.5 g/dl (30-36); MCV 79.5 fl (81-99); MONOCYTES 9.5 % (0-12); NEUTROPHILS 78.9 % (39-80); PLATELET COUNT 163 K/uL (140-440); RBC 3.34 M/ul (4.3-5.7); RDW 18.9 (10.5-15.0)
[2025-03-27 05:26] LABS: ANION GAP 15.5 (7-21); BUN/CREATININE RATIO 13.63 (6.0-28.6); CALCIUM 8.1 mg/dL (8.5-10.1); CREATININE, SERUM 1.32 mg/dL (0.70-1.30); MAGNESIUM 1.7 mg/dL (1.8-2.4); POTASSIUM 3.5 mmol/L (3.5-5.1)
--- NOTE | 2025-03-27 06:45 | NUR ---
VITALS, WEIGHT. ASSISTED PT FROM BED TO CHAIR. PUREWICK LEAKING, REMOVED, CHANGED GOWN AND BED LINENS. PROVIDED COFFEE AND WATER. NO OTHER NEEDS, CALL LIGHT IN REACH
[2025-03-27 06:47] VITALS: BP 108/52
--- NOTE | 2025-03-27 08:00 | NUR ---
RECIEVED SHIFT REPORT. PT IS AWAKE IN RECLINER, CALL LIGHT IN REACH.
--- NOTE | 2025-03-27 08:58 | NUR ---
CASE MGMT WAS NOTIFED THAT PATIENT HAS UPCOMING APPOINTMENTS WITH [facility] SCHEDULED ON 04/02/25. THEY ARE AWARE AND WILL PASS INFORMATION TO [facility] ON DISCHARGE INSTRUCTIONS
[2025-03-27] MEDS ORDERED: MAGNESIUM SULFATE 2 GM/50 ML BAG IV ONE (09:00)
--- NOTE | 2025-03-27 09:14 | NUR ---
INTO SEE PATIENT. PATIENT SITTING UP EATING BREAKFAST. STATES HES TIRED FROM SURGERY YESTERDAY. PATIENT STILL PLANS TO GO TO [facility] AT TIME OF DISCHARGE. FAXED PROG NOTE, PT/OT AND LABS FROM YESTERDAY TO FACILITY. NO FUTHER CM NEEDS OR QUESTIONS AT THIS TIME.
[2025-03-27 09:21] VITALS: BP 117/49
[2025-03-27] MEDS ORDERED: MAGNESIUM CHLORIDE 64 MG TABCR PO ONE (09:30)
--- NOTE | 2025-03-27 10:28 | NUR ---
MORNING ASSESSMENT COMPLETE. PT IV INFILTRATTED. SPOKE WITH LINO, VERBAL TO LEAVE IV OUT. PAIN SUBSIDED FROM TYLENOL GIVEN. NO DISCOMFORT AT THIS TIME. EXP WHEEZE HEARD IN ALL LOBES. CALL LIGHT IN REACH.
[2025-03-27 10:29] VITALS: BP 117/49
--- NOTE | 2025-03-27 11:06 | NUR ---
PATIENT ACCEPTED FOR [facility] TODAY. CALLED AND SCHEDULED WHEELCHAIR VAN FOR 1:15 PM.
[2025-03-27] MEDS ORDERED: LOPERAMIDE2 MG PO (11:38)
[2025-03-27] MEDS ORDERED: METAMUCIL PACK3.4 GM PO (11:38)
--- NOTE | 2025-03-27 11:47 | NUR ---
FAXED ORDERS TO [facility].
--- NOTE | 2025-03-27 12:20 | NUR ---
CONSULT FOR NUTRITION FOR LIKELY CELIAC DISEASE. PATIENT UNDERWENT COLONOSCOPY YESTERDAY WITH BIOPSIES TAKEN OF INTESTINES. TRANSGLUTIMINASE IgA COME BACK ELEVATED AT 148.27. PATIENT HAS GLUTEN-FREE DIET INFORMATION AT BEDSIDE FROM NURSING. HE KNOWS THAT HE WILL HAVE TO READ LABELS VERY THOROUGHLY. PROVIDED HIM A HANDOUT ON CELIACE DISEASE NUTRITION THERAPY FROM THE [facility]. EXPLAINED TO HIM THE COMMON FOODS THAT CONTAIN GLUTEN. ALSO EXPLAINED A FEW FOODS THAT NATURALLY ARE GLUTEN-FREE, SUCH FRUITS, VEGGIES, DAIRY, AND PROTEINS. THE PLAN IS FOR HIM TO GO TO [facility] UPON DISCHARGE. PROVIDED THE HANDOUT ANYWAY BECAUSE HE MAY END UP GOING HOME FROM THERE. PATIENT HAS GOOD UNDERSTANDING THAT HE NEEDS TO STICK TO A GLUTEN-FREE DIET. MY NAME AND OFFICE # ARE PROVIDED IN CASE QUESTIONS ARISE IN THE FUTRE. IN THE MEANTIME, DIETARY IS SENDING AN ENSURE ON EVERY BREAKFAST AND DINNER TRAY TO PROVIDE ADDITIONAL CALORIES AND PROTEIN. PATIENT REMAINS AT MODERATE NUTRITION RISK. RD TO FOLLOW UP IN 5 DAYS FOR PO INTAKE.
[2025-03-27] MEDS ORDERED: IMODIUM A-D2 M2 PO (12:48)
--- NOTE | 2025-03-27 12:56 | NUR ---
REPORT GIVEN TO DONA RICKS AT [facility].
[2025-03-27 13:03] VITALS: BP 111/58
--- NOTE | 2025-03-28 13:08 | OR ---
[facility] [address], [place] [address] Signed DATE OF OPERATION: 03/26/2025 SURGEON: Zach Rico MD PREOPERATIVE DIAGNOSIS: Intractable nonbloody diarrhea, negative for C difficile. POSTOPERATIVE DIAGNOSIS: Normal-appearing colon. PROCEDURE: Total colonoscopy to cecum with biopsies throughout. ANESTHESIA: Intravenous sedation, propofol infusion, Tone Rudd CRNA. INDICATION: This 79-year-old white man has numerous medical problems. He is admitted on March 23, 2025 with watery diarrhea and cramps, but no blood per rectum. He was on cefdinir in January and C difficile testing was negative. Other stool studies are pending as of yesterday. He has undergone a bowel prep and now to undergo colonoscopy to better characterize his problem specifically to assess for colitis. He has not had colonoscopy in the past. The risk of bleeding, infection, and perforation were reviewed with him. He understands, wished to proceed. FINDINGS: The prep was quite excellent. Complete colonoscopy was undertaken of the cecum with full intubation of the cecum. The appendiceal orifice and cecum was normal. Entry to the ileum was not accomplished. The remaining colon was entirely normal. Biopsies were taken throughout to assess for occult or microscopic colitis. DESCRIPTION OF PROCEDURE: The patient was brought to the endoscopy suite and placed in lateral decubitus position, given intravenous sedation to a point of slurred speech and nystagmus. Digital rectal examination was normal. An Olympus video colonoscope was passed per rectum and manipulated throughout the colon ultimately intubating the cecum itself. The ileocecal valve and appendiceal orifice appeared normal. Biopsies were taken of the cecum. The scope was withdrawn and bland appearing mucosa was noted. There was no sign of inflammation or even edema really. Electronically Signed By: ZACH RICO MD 03/28/25 1308 PATIENT NAME: RAMOS SANTOS OPERATIVE REPORT DATE OF : 43 REPORT #: [id number] PHYSICIAN: ZACH RICO MD PCP: KATEY FU MD REPORT IS CONFIDENTIAL AND NOT TO BE RELEASED WITHOUT AUTHORIZATION [facility] [address], [place] [address] Signed Biopsies were taken of the right colon, transverse, left colon, sigmoid and rectum in addition to the cecum. Retroflexed view was normal as well. There was no sign of neoplasm. The scope was removed. The patient was taken to the recovery room in good condition. CONCLUDING DIAGNOSIS: No overt mucosal abnormality to account for the diarrhea problem. Certainly, the possibility of an occult colitis (microscopic colitis including collagenous colitis, etc.) could be possible. For now, we will initiate loperamide 8 mg p.o. b.i.d. as results from cultures become available. MD EULA Schrader/JENNIFERL /[id number] cc: Ashlyn Garces Dr., Dr. Copies: ~ Electronically Signed By: ZACH RICO MD 03/28/25 1308 PATIENT NAME: RAMOS SANTOS OPERATIVE REPORT DATE OF : 43 REPORT #: [id number] PHYSICIAN: ZACH RICO MD PCP: KATEY FU MD REPORT IS CONFIDENTIAL AND NOT TO BE RELEASED WITHOUT AUTHORIZATION
--- NOTE | 2025-03-30 15:59 | PATH ---
[facility] [address] [facility] [place], [place] [address] Signed SPECIMEN(S): A CECUM COLON BIOPSY SPECIMEN(S): B TRANSVERSE COLON BIOPSY SPECIMEN(S): C DESCENDING COLON BIOPSY SPECIMEN(S): D SIGMOID COLON BIOPSY SPECIMEN(S): E RECTUM SPECIMEN SOURCE: A. CECUM COLON BIOPSY B. TRANSVERSE COLON BIOPSY C. DESCENDING COLON BIOPSY D. SIGMOID COLON BIOPSY E. RECTUM CLINICAL HISTORY: Diarrhea FINAL PATHOLOGIC DIAGNOSIS: A. Cecum, biopsy: - Colonic mucosa with no significant pathologic changes B. Colon, transverse, biopsy: - Colonic mucosa with no significant pathologic changes C. Colon, descending, biopsy: - Colonic mucosa with no significant pathologic changes D. Colon, sigmoid, biopsy: - Colonic mucosa with no significant pathologic changes E. Rectum, biopsy: - Colonic mucosa with no significant pathologic changes BRP MICROSCOPIC EXAMINATION: Histologic sections of all submitted blocks are examined by light microscopy. These findings, together with the gross examination, support the pathologic diagnosis. GROSS DESCRIPTION: A. The specimen, labeled and designated "March, cecum colon biopsy," is received in formalin and consists of two dutton soft tissue fragments, ranging from 0.2-0.5 cm. Entirely submitted in (A1). B. The specimen, labeled and designated "May, transverse colon biopsy," is received in formalin and consists of three dutton soft tissue fragments, ranging from 0.3-0.4 cm. Entirely submitted in (B1). PATIENT NAME: RAMOS SANTOS PATHOLOGY DATE OF : 43 REPORT #: [id number] PHYSICIAN: RADHA PATHOLOGY PCP: KATEY FU MD REPORT IS CONFIDENTIAL AND NOT TO BE RELEASED WITHOUT AUTHORIZATION [facility] [address] [place], [place] [address] Signed C. The specimen, labeled and designated "May, descending colon biopsy," is received in formalin and consists of three dutton soft tissue fragments, ranging from 0.1-0.4 cm. Entirely submitted in (C1). D. The specimen, labeled and designated "May, sigmoid colon biopsy," is received in formalin and consists of two dutton soft tissue fragments, ranging from 0.3-0.4 cm. Entirely submitted in (D1). E. The specimen, labeled and designated "May, rectum biopsy," is received in formalin and consists of four dutton soft tissue fragments, ranging from 0.2-0.4 cm. Entirely submitted in (E1). VB (under the direct supervision of a pathologist) The Gross Description was prepared using a voice recognition system. The report was reviewed for accuracy; however, sound-alike word errors, addition and/or deletions may occur. If there is any question about this report, please contact Client Services. ADDITIONAL NOTES: Immunohistochemical and/or in situ hybridization studies if performed in this case included appropriate positive controls that reacted as expected. This test was developed and its performance characteristics determined by [facility]. It has not been cleared or approved by the U.S. Food and Drug Administration. The FDA has determined that such clearance or approval is not necessary. This test is used for clinical purposes. It should not be regarded as investigational or for research. [facility] is certified under the Clinical Laboratory Improvement Amendments of 1988 (CLIA) as qualified to perform high complexity clinical laboratory testing. PERFORMING LABORATORY: Technical component was performed by [facility], [address] [place] [id number] (CLIA# [id number]). Professional interpretation was performed by [facility] - [place], [facility] [place] [address] (CLIA#: [id number]). Diagnostician: Gigi Irby MD Pathologist Electronically Signed 03/30/2025 Copies: PATIENT NAME: RAMOS SANTOS PATHOLOGY DATE OF : 43 REPORT #: [id number] PHYSICIAN: RADHA PATHOLOGY PCP: KATEY FU MD REPORT IS CONFIDENTIAL AND NOT TO BE RELEASED WITHOUT AUTHORIZATION [address] [address] Signed ~ PATIENT NAME: RAMOS SANTOS PATHOLOGY DATE OF : 43 REPORT #: [id number] PHYSICIAN: [facility] PCP: KATEY FU MD REPORT IS CONFIDENTIAL AND NOT TO BE RELEASED WITHOUT AUTHORIZATION
== END 2025-03-27 13:30 | disposition home or self-care (01) | DRG 392 ==
LOC: ED 09:06 → MS 16:23
PROVIDERS: Emergency Medicine; Surgery; ADMIT Student in an Organized Health Care Education/Training Program; ATTEND Student in an Organized Health Care Education/Training Program
PROC: 0DBK8ZX Excision of Ascending Colon, Via Natural or Artificial Opening Endoscopic, Diagnostic (ICD-10-PCS; 2025-03-26)
PROC: 0DBL8ZX Excision of Transverse Colon, Via Natural or Artificial Opening Endoscopic, Diagnostic (ICD-10-PCS; 2025-03-26)
PROC: 0DBN8ZX Excision of Sigmoid Colon, Via Natural or Artificial Opening Endoscopic, Diagnostic (ICD-10-PCS; 2025-03-26)
PROC: 0DBP8ZX Excision of Rectum, Via Natural or Artificial Opening Endoscopic, Diagnostic (ICD-10-PCS; 2025-03-26)
PROC: 0DBH8ZX Excision of Cecum, Via Natural or Artificial Opening Endoscopic, Diagnostic (ICD-10-PCS; principal; 2025-03-26 14:00)
DX: K90.0 Celiac disease (principal); E87.20 Acidosis, unspecified; N13.6 Pyonephrosis; Z85.51 Personal history of malignant neoplasm of bladder; I50.9 Heart failure, unspecified; Z95.0 Presence of cardiac pacemaker; J44.9 Chronic obstructive pulmonary disease, unspecified; I25.10 Atherosclerotic heart disease of native coronary artery without angina pectoris; N18.9 Chronic kidney disease, unspecified; I25.2 Old myocardial infarction; Z86.73 Personal history of transient ischemic attack (TIA), and cerebral infarction without residual deficits; Z98.890 Other specified postprocedural states; Z79.899 Other long term (current) drug therapy; Z95.2 Presence of prosthetic heart valve
CPT/HCPCS: 00811; 36415; 51701; 51798; 71046; 74177; 80048; 80053; 81001; 83630; 83735; 84302; 84439; 84443; 85025; 85651; 86140; 87045; 87046; 87077; 87088; 87177; 87186; 94640; 94760; 97162; 97166; 97530; 97535; 99285-25; A9270; J0696; J1650; J2003; J2371; J2704; J3475; J7030; J7121; Q9967

== ENCOUNTER 2025-03-31 07:59 | Inpatient (IN) | payer MEDICARE, OTHER ==
[~2025-03-31] VITALS: Ht 188 cm; Wt 62.5 kg
[~2025-03-31 07:59] MED LIST changes: +IMODIUM A-D2 M2 PO; +IPRAT-ALBUT 0.5-3 ML INH; +LOPERAMIDE2 MG PO; +METAMUCIL PACK3.4 GM PO
[2025-03-31 08:27] LABS: BASOPHILS 0.4 % (0-2); HEMATOCRIT 28.7 % (35.0-50.0); HEMOGLOBIN 9.2 g/dL (12.0-18.0); MCH 25.7 (27-36); MCV 80.1 fl (81-99); MONOCYTES 4.6 % (0-12); PLATELET COUNT 184 K/uL (140-440); RBC 3.59 M/ul (4.3-5.7)
[2025-03-31] MEDS ORDERED: ALBUTEROL/IPRATROPIUM 3 ML NEB INH ONE (08:30)
[2025-03-31] MEDS ORDERED: SODIUM CHLORIDE 0.9% 1,000 ML IV PRN (08:45)
[2025-03-31] MEDS ORDERED: DULCOLAX10 MG PR (08:48)
[2025-03-31 08:49] LABS: ALBUMIN 2.2 g/dL (3.4-5.0); ALBUMIN/GLOBULIN RATIO 0.42 (1.1-2.4); BILIRUBIN, TOTAL 0.3 mg/dL (0.2-1.0); BUN/CREATININE RATIO 15.11 (6.0-28.6); CALCIUM 9.1 mg/dL (8.5-10.1); CREATININE, SERUM 4.83 mg/dL (0.70-1.30); MAGNESIUM 2.2 mg/dL (1.8-2.4); POTASSIUM 4.8 mmol/L (3.5-5.1); PROTEIN, TOTAL 7.5 g/dL (6.4-8.2)
[2025-03-31] MEDS ORDERED: FLEET ENEMA133 ML PR (08:49)
[2025-03-31 08:54] LABS: ANION GAP 20.8 (7-21)
[2025-03-31] MEDS ORDERED: PIPERACILLIN/TAZOBACTAM 4.5 GM in SODIUM CHLORIDE 0.9% 100 ML IV ONE (10:30)
--- NOTE | 2025-03-31 10:31 | EKG ---
[facility] [address] [facility] [place] [address] Signed Normal sinus rhythm with sinus arrhythmia Right bundle branch block Abnormal ECG When compared with ECG of 28-JAN-2025 21:26, No significant change was found Confirmed by Mich Arnett DO ([id number]) on 03/31/2025 10:30:52 AM Electronically Signed By: MICH ARNETT DO 03/31/25 1031 PATIENT NAME: DANIELLERAMOS RIVKA Electrocardiogram DATE OF : 43 PHYSICIAN: MICH ARNETT DO REPORT #: [id number] REPORT IS CONFIDENTIAL AND NOT TO BE RELEASED WITHOUT AUTHORIZATION
[2025-03-31] MEDS ORDERED: ondansetron HCL 4 MG/2 ML VIAL IV PRN (10:45)
[2025-03-31] MEDS ORDERED: ACETAMINOPHEN 325 MG TAB PO PRN (10:45)
[2025-03-31] MEDS ORDERED: ERTAPENEM SODIUM 1 GM/10 ML VIAL IV SCH ×2 (11:24→11:45)
[2025-03-31] MEDS ORDERED: LIDOCAINE 2% VISCOUS 6 ML SYR TOP ONE (11:30)
[2025-03-31 11:40] LABS: BILIRUBIN, URINE NEGATIVE (negative); BLOOD/HGB, URINE LARGE (Negative); KETONE, URINE TRACE (Negative); PH, URINE 6 (5-7)
[2025-03-31 11:41] LABS: LEUK ESTERASE, URINE POSITVE (negative); NITRITE, URINE POSITIVE (negative)
[2025-03-31 11:42] LABS: BACTERIA, URINE 4+ /hpf (negative); CASTS, URINE NONE SEEN \\lpf; COLLECTION TYPE, URINE CLEAN CATCH; CRYSTALS, URINE NONE SEEN (0-1+); EPITHELIAL CELLS, URINE SQUAMOUS 1+ /lpf (0-1+); REFLEX CULTURE, URINE Yes (No); WHITE BLOOD CELLS, URINE >50 /HPF (0-5)
[2025-03-31] MEDS ORDERED: ERTAPENEM SODIUM 0.5 GM in SODIUM CHLORIDE 0.9% 50 ML IV SCH (12:00)
[2025-03-31] MEDS ORDERED: PHARMACY RENAL DOSE ADJUSTMENT 1 DOSE MISC PO SCH (12:00)
[2025-03-31 12:05] VITALS: BP 134/78
[2025-03-31] MEDS ORDERED: HEParin SOD (PORCINE) 5,000 UNIT/ML SDV SUB-Q SCH (12:21)
[2025-03-31] MEDS ORDERED: AZITHROMYCIN 250 MG TAB PO SCH (12:23)
--- NOTE | 2025-03-31 12:34 | NUR ---
PT REPORT RECIEVED FROM DONA FERNANDO FROM ER. PT TRANSPORTED VIA STRETCHED AND TRANSFERED VIA SLID SHEET. PT HAS NO SOB AT THIS TIME 100 OR SAT ON RA AT THIS TIME. PT IS EXERENCING LABORED BREATHING AT THIS TIME. LUNG SOUNDS WERE CLEAR IN BUL AND FINE CRACKLES IN THE BLL. PT ASSESSMENT WILL BE COMPLETED ONCE RN RETURNS FROM LUNCH.
--- NOTE | 2025-03-31 12:55 | NUR ---
PATIENT IS HAVING ECHO AT THIS TIME. IV ERTRAPENUM IS INFUSING AT THIS TIME.
--- NOTE | 2025-03-31 12:56 | NUR ---
MED REC COMPLETE
--- NOTE | 2025-03-31 13:22 | NUR ---
PT LEFT WITH IMAGING AT THIS TIME FOR IMAGING OF ABD. PT HAS NO COCNERNS. PT TO RETURN SHORTLY TO SAME ROOM.
--- NOTE | 2025-03-31 13:36 | NUR ---
SLEEPY, DOES NOT STAY AWAKE WITHOUT MULTIPLE PROMPTS. CURRENTLY AT [facility] FOR SNF AFTER PREVIOUS HOSPITALIZATION. HE HAS CANE AND SHOWER CHAIR AT HOME. HE WAS LIVING WITH HIS SON PRIOR TO PREVIOUS HOSPITAL STAY. CURRENTLY, PLAN TO RETURN TO [facility] WHEN MEDICALLY STABLE.
--- NOTE | 2025-03-31 13:41 | NUR ---
CLINICALS FAXED TO [facility]
--- NOTE | 2025-03-31 13:56 | NUR ---
UR CLINICAL REVIEW: 2 MN FOR VERSALUS-PER MANAGER OF MERCHANDISING MEETS INPT FOR RECURRENT UTI WITH NEED FOR IV ABX MEDICARE INPT 03/31/25 @ 1121 ORDER MATCHES REG NO AUTH RQUIRED PER MEDICARE GUIDELINES DISCHARGE DISPO PENDING FURTHER CASE MANAGEMENT EVALUATION
[2025-03-31 14:00] VITALS: BP 134/78
[2025-03-31] MEDS ORDERED: ALBUTEROL/IPRATROPIUM 3 ML NEB INH SCH (14:00)
[2025-03-31] MEDS ORDERED: AZITHROMYCIN 500 MG in DEXTROSE 5% 250 ML IV SCH (14:16)
--- NOTE | 2025-03-31 14:24 | NUR ---
PT LAYING IN BED WITH KNEES BENT AND LEGS ELEVATED. PT HOB WAS ELEVATED TO TAKE PO ZITHROMAX, PT DID NOT TOLERATE PO MEDICATION WELL AND MD ARNETT WAS CONTACTED TO CHANGE ORAL ANTIBIOTICS ORDER TO IV. MD ARNETT GAVE VERBAL ORDER. PT HAS NO CONCERNS AT THIS TIME AND HAS CALL LIGHT IN REACH AT THIS TIME.
--- NOTE | 2025-03-31 14:44 | NUR ---
PT LAYING IN BED AT THIS TIME. PT STATES THEY ARE COLD AND WERE GIVEN WARM BLANKETS PT CONTINUES TO BE AFEBRILE. PT HAS NO OTHER CONCERNS AT THIS TIME.
--- NOTE | 2025-03-31 16:10 | NUR ---
PT SITTING UP IN BED AT THIS TIME, PT HAS EYES CLOSED CHEST RISE EQUAL BILAT. PT IS ON RA WITH BED ALARM ON FOR PT SAFETY. PT HAS CALL LIGHT IN REACH AT THIS TIME.
--- NOTE | 2025-03-31 16:59 | NUR ---
PT SON KELLIE CALLED THE NURSING STATION. PT GAVE PERMISSION TO GIVE INFORMATION TO THE SON. PT SON WAS UPDATED ON PT PLAN OF CARE WELL THE REASONS FOR ADMISSION AT THIS TIME. KELLIE HAD NO FURTHER QUESTIONS AT THIS TIME AND ASKED TO BE UPDATED WITH CHANGES IN PT STATUS/POC. KELLIE HAD NO FURTHER QUESTIONS.
--- NOTE | 2025-03-31 17:10 | NUR ---
PT SITTING UP IN BED, PT HAS NO CURRENT CONCERNS AT THIS TIME. PT SPOT CHECKED O2 SAT 100% ON RA AT THIS TIME PT DENIES SOB AT THIS TIME. PT HAS CALL LIGHT IN REACH.
[2025-03-31 18:00] VITALS: BP 144/62
[2025-03-31] MEDS ORDERED: LACTATED RINGER'S 1,000 ML IV SCH (18:00)
--- NOTE | 2025-03-31 18:30 | NUR ---
PT SITTING UP IN BED AT THIS TIME. PT REPOSITIONED AND GORDO CARE DONE. PT TOLERATED WELL. MD ISAACS WAS CONTACTED ABOUT PT COUGHING AFTER EATING DINNER. ORDERED PT NPO UNTIL ST EVAL IS DONE. PT HAS NO CURRENT CONCERNS AT THIS TIME AND HAS CALL LIGHT IN REACH AT THIS TIME.
[2025-03-31 18:32] VITALS: BP 144/62
--- NOTE | 2025-03-31 19:31 | NUR ---
RECEIVED REPORT FROM DONA DEAL. PT RESTING QUIETLY. FAMILY AT BEDSIDE-QUESTIONS ANSWERED.
[2025-03-31] MEDS ORDERED: BUDESONIDE 0.5 MG/2 ML VIAL INH SCH (20:00)
--- NOTE | 2025-03-31 20:00 | NUR ---
PT AWAKE, RESTING QUIETLY. DROWSY, QUICKLY FALLS BACK ASLEEP DURING ASSESSMENT. FOLLOWS SIMPLE COMMANDS. MINIMAL VERBAL INTERACTION. NO S/S PAIN. LSC DIM T/O. REMAINS ON RA. DENIES SOB. HRR, TELE IN PLACE. BT HYPERACTIVE. LBM TODAY. F/C W/ DARK YELLOW CLOUDY URINE, SOME SEDIMENT. LERMA CARE DONE BY MYRON FONTANA. COCCYX AND GORDO RECTAL AREA REDDENED, BLANCHABLE. BARRIER CREAM APPLIED AND PT REPOSITIONED TO SIDE LYING. RAC IV WNL, INFUSING LR @ 100MLS/HR. PT IS NPO AT THIS TIME. BED ALARM IN PLACE FOR SAFETY. CALL LIGHT WITHIN REACH.
[2025-03-31 20:08] VITALS: BP 123/47
[2025-03-31 20:40] VITALS: BP 123/47
[2025-03-31] MEDS ORDERED: MELATONIN 3 MG TAB PO PRN (21:00)
--- NOTE | 2025-03-31 21:45 | NUR ---
PT REPOSITIONED TO LEFT SIDE W/ 2 ASSIST, PT ABLE TO HELP SOME. BED ALARM IN PLACE. CALL LIGHT WITHIN REACH.
--- NOTE | 2025-03-31 23:48 | NUR ---
PT SLEEPING SOUNDLY, APPEARS COMFORTABLE.
[2025-04-01] VITALS (7 sets, daily range): BP systolic 112–139; BP diastolic 43–65
--- NOTE | 2025-04-01 02:41 | NUR ---
PT REPOSITIONED TO RIGHT SIDE. SLEEPING SOUNDLY BETWEEN CARE. IVF INFUSING RAC IV.
--- NOTE | 2025-04-01 04:08 | NUR ---
PT SLEEPING SOUNDLY. APPEARS COMFORTABLE.
[2025-04-01 05:51] LABS: HEMATOCRIT 26.3 % (35.0-50.0); HEMOGLOBIN 8.4 g/dL (12.0-18.0); MCH 25.5 (27-36); MCHC 32.1 g/dl (30-36); MCV 79.5 fl (81-99); PLATELET COUNT 161 K/uL (140-440); RDW 19.2 (10.5-15.0)
[2025-04-01 06:02] LABS: BANDS, MANUAL DIFF 5; LYMPHOCYTES, MANUAL DIFF 8; MONOCYTES, MANUAL DIFF 2; NEUTROPHILS, MANUAL DIFF 85
[2025-04-01 06:05] LABS: ALBUMIN 1.8 g/dL (3.4-5.0); ALBUMIN/GLOBULIN RATIO 0.36 (1.1-2.4); ANION GAP 23.7 (7-21); BILIRUBIN, TOTAL 0.3 mg/dL (0.2-1.0); BUN/CREATININE RATIO 18.27 (6.0-28.6); CALCIUM 8.7 mg/dL (8.5-10.1); CREATININE, SERUM 4.87 mg/dL (0.70-1.30); MAGNESIUM 2.3 mg/dL (1.8-2.4); POTASSIUM 4.7 mmol/L (3.5-5.1); PROTEIN, TOTAL 6.8 g/dL (6.4-8.2)
--- NOTE | 2025-04-01 06:33 | NUR ---
DR. ARNETT NOTIFIED OF CRITICAL LAB VALUE CO2 OF 9. MD STATES WILL LOOK AT LABS. NO NEW ORDERS.
[2025-04-01 07:35] LABS: BASE EXCESS, BLOOD GAS -16.7 mmol/L (-2-2); HCO3, BLOOD GAS 7.5 mmol/L (22-26); O2 SATURATION, BLOOD GAS 98.5 % (95.0-100.0); OXYGEN RECEIVED, BLOOD GAS RA; PCO2, BLOOD GAS 14.6 mmHg (35-45); PH, BLOOD GAS 7.32 (7.35-7.45); PO2, BLOOD GAS 109 mmHg (80-100)
--- NOTE | 2025-04-01 07:46 | NUR ---
HOURLY ROUNDING. PATIENT IS SLEEPING AT THIS TIME. BOARD HAS BEEN UPDATED, CALL LIGHT IS IN REACH
--- NOTE | 2025-04-01 07:47 | NUR ---
MORNING REPORT RECIEVED FROM DONA VINCENT. PT LAYING IN BED WITH RT DAMARI IN ROOM. PT IS CURRENTLY RECIEVING BREATHING TREATMENT, AND ABG ARE BEING DRAWN. LAB IS ALSO IN ROOM AT THIS TIME. DONA ZULUAGA CONTACTED MD ARNETT ABOUT PT STATUS AND MD ARNETT WANTED TO SEE ABG RESULTS BEFORE MAKING DECISIONS. PT IS CURRENTLY STABLE AT THIS TIME WITH DOOR OPEN FOR PT SAFETY. PT HAS CALL LIGHT IN REACH AT THIS TIME.
--- NOTE | 2025-04-01 07:53 | NUR ---
NIGHT CHARGE NURSE INSTRUCTIONS DURING REPORT WAS TO RETAKE VITALS. VITALS HAVE BEEN DOCUMENTED AND NURSE HAS BEEN NOTIFIED NO REQUESTS AT THIS TIME FROM NURSE OR PATIENT. CALL LIGHT HAS BEEN PLACED WITHIN REACH AND BED HAS BEEN LOWERED
[2025-04-01 07:59] LABS: ACETAMINOPHEN 0 ug/mL (10-30)
[2025-04-01] MEDS ORDERED: SODIUM BICARBONATE 100 MEQ in SODIUM CHLORIDE 0.45% 1,000 ML IV SCH (08:15)
[2025-04-01 08:21] LABS: AMPHETAMINES, URINE NEGATIVE (NEGATIVE); BARBITURATES, URINE NEGATIVE (NEGATIVE); BENZODIAZEPINE, URINE NEGATIVE (NEGATIVE); BUPRENORPHINE, URINE NEGATIVE (NEGATIVE); CANNABINOID, URINE NEGATIVE (NEGATIVE); COCAINE, URINE NEGATIVE (NEGATIVE); ECSTASY, URINE NEGATIVE (NEGATIVE); FENTANYL, URINE NEGATIVE (NEGATIVE); METHADONE, URINE NEGATIVE (NEGATIVE); OPIATES, URINE NEGATIVE (NEGATIVE); OXYCODONE, URINE NEGATIVE (NEGATIVE); PHENCYCLIDINE, URINE NEGATIVE (NEGATIVE)
--- NOTE | 2025-04-01 08:59 | NUR ---
ATTEMPT TO CONTACT [id number], KARISSA, NO ANSWER. LEFT MESSAGE TO PLEASE CALL CM BACK WITH CALL BACK NUMBER PROVIDED.
[2025-04-01] MEDS ORDERED: PIPERACILLIN/TAZOBACTAM 4.5 GM in SODIUM CHLORIDE 0.9% 100 ML IV SCH (09:00)
[2025-04-01] MEDS ORDERED: LINEZOLID 600 MG BAG IV SCH (09:00)
[2025-04-01] MEDS ORDERED: ISOSORBIDE MONONITRATE 30 MG TABCR PO SCH (09:00)
[2025-04-01] MEDS ORDERED: AZITHROMYCIN 500 MG in DEXTROSE 5% 250 ML IV SCH (09:00)
[2025-04-01] MEDS ORDERED: SODIUM BICARBONATE 100 MEQ in DEXTROSE 5% 1,000 ML IV SCH (09:00)
[2025-04-01] MEDS ORDERED: MEROPENEM 1,000 MG in SODIUM CHLORIDE 0.9% 100 ML IV SCH (09:00)
--- NOTE | 2025-04-01 09:00 | NUR ---
pt to 128 via bed from med surg. doshi to gravity, iv fusing lr at 100, and abx. pt opens eyes but does not respond, rn able to easily remove upper and lower dentures as they were loose in mouth and pt not responding to commands or talking. pt turned to left side, skin check with amina shows wnl skin, call light in reach, pt vitals taken and settled in bed. belongings to closet - dc materials planner/production planner sakina attempted to call family no answer - pt is full code.
--- NOTE | 2025-04-01 09:35 | NUR ---
called pharmacy for bicarb - not ready yet.
--- NOTE | 2025-04-01 09:50 | NUR ---
dr here on floor - verbalized that pt lr is stopped in place of bi carb. done. sakina talked to pt family and plan to transfer for dialysis. dr aware of pt status at this time. mainspring fabrication supervisor here planning transfer at this time.
--- NOTE | 2025-04-01 09:52 | NUR ---
aware of gram + cocci in ped bottle at 1101 03/31.
--- NOTE | 2025-04-01 10:46 | NUR ---
CALLED AND NOTIFIED KARISSA, DAUGHTER IN LAW, PATIENT HAS BEEN ACCEPT TO [facility]. AWAITING BED ASSIGNMENT.
--- NOTE | 2025-04-01 10:58 | NUR ---
PT SON CALLED AND TRSF TO CRAFT RECRUITER FOR QUESTIONS AND ANSWERS ABOUT TRANSFER TO [facility], AND AWARE OF [facility] ACCEPTING. PT UNCHANGED, EYES CLOSED. CALL LIGHT IN REACH.
--- NOTE | 2025-04-01 11:25 | NUR ---
1102- CALL TO [facility] ABOUT POSSIBLE TRANSFER. TRANSFER CENTER NURSE REPORTS THERE ARE MULTIPLT PTS AHEAD AND IT WOULD LIKELY BE A WAITLIST SITUATION, BUT WILL CALL BACK. 1106- CALL TO [facility] FOR TRANSFER. 1121- [facility] CALLS AND REPORTS THAT PT HAS BEEN ACCEPTED AND GAVE BED SPACE CONFIRMATION 1125- CALL TO [facility] FOR TRANSPORTATION.
--- NOTE | 2025-04-01 11:33 | NUR ---
VISITED DURING SPIRITUAL CARE ROUNDS. PT APPEARED TO BE SLEEPING. DID NOT DISTURB. PROVIDED PRAYER.
--- NOTE | 2025-04-01 12:39 | NUR ---
report called to tammi stepdown 2025, pt left at 1155 via strecher and ems. report to ems by smoke jumper supervisor. dentures top/bottom with pt. family aware. [facility].
--- NOTE | 2025-04-01 14:19 | NUR ---
DC SUMMARY FAXED TO [facility] FOR UPDATE.
== END 2025-04-01 11:55 | disposition short-term general hospital (02) | DRG 689 ==
LOC: ED 07:59 → MS 11:30 → CCU 04-01 09:00
PROVIDERS: Emergency Medicine; ADMIT Student in an Organized Health Care Education/Training Program; ATTEND Student in an Organized Health Care Education/Training Program
DX: N39.0 Urinary tract infection, site not specified (principal); J18.9 Pneumonia, unspecified organism; N17.9 Acute kidney failure, unspecified; I24.89 Other forms of acute ischemic heart disease; I50.9 Heart failure, unspecified; J44.9 Chronic obstructive pulmonary disease, unspecified; K90.0 Celiac disease; R91.1 Solitary pulmonary nodule; N18.9 Chronic kidney disease, unspecified; I25.10 Atherosclerotic heart disease of native coronary artery without angina pectoris; J43.2 Centrilobular emphysema; F17.210 Nicotine dependence, cigarettes, uncomplicated; I25.2 Old myocardial infarction; Z86.73 Personal history of transient ischemic attack (TIA), and cerebral infarction without residual deficits; Z85.51 Personal history of malignant neoplasm of bladder; Z95.4 Presence of other heart-valve replacement; Z95.0 Presence of cardiac pacemaker; Z98.890 Other specified postprocedural states; Z79.51 Long term (current) use of inhaled steroids; Z79.899 Other long term (current) drug therapy
CPT/HCPCS: 36415; 36600; 71045; 71260; 74150; 74176; 80053; 80307; 81001; 82010; 82436; 82803; 83605; 83735; 83880; 84133; 84300; 84484; 85025; 87040; 93005; 93010; 93306; 94640; 94760; A4311; G0480; J0456; J1335; J1644; J2185; J2543; J7030; J7060; J7070; J7121; Q9967

== ENCOUNTER 2025-05-08 12:10 | Inpatient (IN) | payer MEDICARE, OTHER ==
[~2025-05-08] VITALS: Ht 188 cm; Wt 58.3 kg
[~2025-05-08 12:10] MED LIST changes: +DULCOLAX10 MG PR; +FLEET ENEMA133 ML PR
[2025-05-08 12:38] LABS: BASOPHILS 0.7 % (0.2-1.2); HEMATOCRIT 32.2 % (40.1-51.0); HEMOGLOBIN 10.1 g/dL (13.7-17.5); MCH 25.8 PG (25.7-32.2); MCHC 31.4 g/dL (32.3-36.5); MCV 82.4 fL (79.0-92.2); NEUTROPHILS 83.8 % (34.0-67.9); PLATELET COUNT 256 K/uL (163-337); RBC 3.91 M/uL (4.63-6.08)
[2025-05-08 12:56] LABS: ALBUMIN 2.9 g/dL (3.4-5.0); ALBUMIN/GLOBULIN RATIO 0.49 (1.1-2.4); ANION GAP 15.2 (7-21); BILIRUBIN, TOTAL 0.3 mg/dL (0.2-1.0); BUN/CREATININE RATIO 21.4 (6.0-28.6); CALCIUM 9.3 mg/dL (8.5-10.1); CREATININE, SERUM 2.99 mg/dL (0.70-1.30); POTASSIUM 4.2 mmol/L (3.5-5.1); PROTEIN, TOTAL 8.8 g/dL (6.4-8.2)
[2025-05-08] MEDS ORDERED: LIDOCAINE 2% VISCOUS 6 ML SYR TOP ONE (14:00)
[2025-05-08 14:19] LABS: BILIRUBIN, URINE NEGATIVE (negative); BLOOD/HGB, URINE LARGE (Negative); KETONE, URINE NEGATIVE (Negative); LEUK ESTERASE, URINE MODERATE (negative); NITRITE, URINE POSITIVE (negative)
[2025-05-08 14:26] LABS: RED BLOOD CELLS, URINE >50 /hpf (0-5)
[2025-05-08 14:27] LABS: BACTERIA, URINE 1+ /hpf (negative); CASTS, URINE NONE SEEN \\lpf; CRYSTALS, URINE NONE SEEN (0-1+); EPITHELIAL CELLS, URINE SQUAMOUS 1+ /lpf (0-1+); WHITE BLOOD CELLS, URINE >50 /HPF (0-5)
[2025-05-08 14:28] LABS: COLLECTION TYPE, URINE CLEAN CATCH; REFLEX CULTURE, URINE Yes (No)
[2025-05-08] MEDS ORDERED: DAPTOmycin 500 MG/10 ML VIAL IV ONE (17:00)
[2025-05-08] MEDS ORDERED: SODIUM CHLORIDE 0.9% 2,000 ML IV PRN (17:00)
[2025-05-08 17:29] LABS: PARTIAL THROMBOPLASTIN TIME 26.2 Sec (22.9-41.3)
[2025-05-08 17:30] LABS: INR 1.08 (0.80-1.30); PROTIME 13.6 Sec (11.2-14.2)
[2025-05-08 17:37] LABS: LACTIC ACID, BLOOD 0.7 mmol/L (0.4-2.0)
[2025-05-08] MEDS ORDERED: MEROPENEM 500 MG in SODIUM CHLORIDE 0.9% 100 ML IV SCH (19:30)
[2025-05-08] MEDS ORDERED: ALBUTEROL/IPRATROPIUM 3 ML NEB INH PRN (19:45)
[2025-05-08 20:10] VITALS: BP 149/71
[2025-05-08] MEDS ORDERED: ondansetron HCL 4 MG/2 ML VIAL IV PRN (20:30)
[2025-05-08] MEDS ORDERED: ACETAMINOPHEN 325 MG TAB PO PRN (20:30)
[2025-05-08 20:38] VITALS: BP 149/71
--- NOTE | 2025-05-08 20:40 | NUR ---
PT ADMITTED FROM THE ER WITH A UTI. PT STABLE. VSS. PT ADMITTED WITH LERMA IN PLACE, DRAINING WELL PER GRAVITY. 2 PERSON SKIN ASSESSMENT COMPLATED WITH MANUFACTURERS SERVICE REPRESENTATIVE, REDNESS ON COCCYX NOTED. IV ABX GIVEN PER ORDER. SAFETY PRECAUTIONS MAINTAINED. CALL LIGHT WITHIN REACH. WILL CONTINUE TO MONITOR.
[2025-05-08] MEDS ORDERED: ALBUTEROL/IPRATROPIUM 3 ML NEB INH SCH (20:56)
[2025-05-08] MEDS ORDERED: SODIUM BICARBONATE 650 MG TAB PO SCH (21:00)
[2025-05-08] MEDS ORDERED: ALBUTEROL SULFATE 0.083% 3 ML VIAL INH PRN (21:00)
[2025-05-08] MEDS ORDERED: ALBUTEROL/IPRATROPIUM 3 ML NEB ONE (21:00)
[2025-05-08] MEDS ORDERED: BUDESONIDE 0.5 MG/2 ML VIAL INH SCH (21:00)
[2025-05-09] VITALS (11 sets, daily range): BP systolic 95–175; BP diastolic 53–93
--- NOTE | 2025-05-09 01:56 | NUR ---
TERMINAL SUPERVISOR OBTAINED VITALS AND I&O. LERMA BAG EMPTIED. PT STATES NO NEEDS AT THIS TIME. CALL LIGHT WITHIN REACH
[2025-05-09 05:30] LABS: BASOPHILS 0.6 % (0.2-1.2); EOSINOPHILS 3.3 % (0.8-7.0); HEMATOCRIT 27.4 % (40.1-51.0); HEMOGLOBIN 8.6 g/dL (13.7-17.5); MCHC 31.4 g/dL (32.3-36.5); MCV 82.8 fL (79.0-92.2); NEUTROPHILS 73.6 % (34.0-67.9); PLATELET COUNT 212 K/uL (163-337); RBC 3.31 M/uL (4.63-6.08)
[2025-05-09 05:41] LABS: BUN/CREATININE RATIO 19.42 (6.0-28.6); CALCIUM 8.6 mg/dL (8.5-10.1); CREATININE, SERUM 2.78 mg/dL (0.70-1.30); MAGNESIUM 2.2 mg/dL (1.8-2.4)
--- NOTE | 2025-05-09 06:13 | NUR ---
PT RESTED WELL THROUGHOUT THE SHIFT. VSS. LERMA IN PLACE AND DRAINING WELL PER GRAVITY, GOOD OUTPUT NOTED. IV ABX GIVEN PER ORDER. SAFETY PRECAUTIONS MAINTAINED. CALL LIGHT WITHIN REACH. WILL CONTINUE TO MONITOR.
--- NOTE | 2025-05-09 07:27 | NUR ---
Patient resting in bed, eyes closed, respirations even and non labored. Personal supplies and call light within reach.
--- NOTE | 2025-05-09 07:27 | EKG ---
[facility] [address] [place], [place] [address] Signed Normal sinus rhythm Right bundle branch block Abnormal ECG When compared with ECG of 31-MAR-2025 08:15, Nonspecific T wave abnormality has replaced inverted T waves in Anterior leads Confirmed by Jessica Boswell MD ([id number]) on 05/09/2025 7:27:40 AM Electronically Signed By: JESSICA BOSWELL MD 05/09/25 0727 PATIENT NAME: RAMOS SANTOS Electrocardiogram DATE OF : 43 PHYSICIAN: JESSICA BOSWELL MD REPORT #: [id number] REPORT IS CONFIDENTIAL AND NOT TO BE RELEASED WITHOUT AUTHORIZATION
--- NOTE | 2025-05-09 07:46 | NUR ---
PATIENT IN BED AT THIS TIME. WOOD BOAT BUILDER SUPERVISOR CHARTED HOURLY ROUNDS, PATIENT REFUSED CHAIR AT THIS TIME. CALL LIGHT WITHIN REACH, NO FURTHER NEEDS.
[2025-05-09] MEDS ORDERED: ARFORMOTEROL TARTRATE 15 MCG/2 ML VIAL INH SCH (08:00)
--- NOTE | 2025-05-09 08:05 | NUR ---
PATIENT AGREED TO GET INTO CHAIR FOR BREAKFAST. COMMUNITY HEALTH EDUCATOR ASSISTED PATIENT FROM BED TO CHAIR. COMMUNITY HEALTH EDUCATOR CHANGED PATIENTS LINENS. CALL LIGHT WITHIN REACH, NO FURTHER NEEDS.
[2025-05-09] MEDS ORDERED: VENTOLIN HFA18 GM INH (08:20)
--- NOTE | 2025-05-09 08:33 | NUR ---
Patient sitting up in chair, alert and oriented x3, no acute distress. Patient reports chronic bladder pain. Patient declining tylenol at this time. Patient eating breakfast at this time. No current needs, personal supplies and call light within reach.
[2025-05-09] MEDS ORDERED: ENOXAPARIN SODIUM 40 MG/0.4 ML SYR SUB-Q SCH (09:00)
[2025-05-09] MEDS ORDERED: ENOXAPARIN SODIUM 30 MG/0.3 ML SYR SUB-Q SCH (09:00)
--- NOTE | 2025-05-09 09:22 | NUR ---
PATIENT IN BED AT THIS TIME. DIAL BUFFER CHARTED VITALS AND I&O'S. CALL LIGHT WITHIN REACH, NO FURTHER NEEDS AT THIS TIME.
--- NOTE | 2025-05-09 09:35 | NUR ---
PATIENT IN CHAIR AT THIS TIME. PT SITTER CHARTED VITALS AND I&O'S. CALL LIGHT WITHIN REACH, NO FURTHER NEEDS AT THIS TIME.
--- NOTE | 2025-05-09 10:20 | NUR ---
PATIENT IN CHAIR AT THIS TIME. THIS STATE FARM AGENT TEAM MEMBER PROVIDED PATIENT WITH CATHETER CARE. CALL LIGHT WITHIN REACH, NO FURTHER NEEDS AT THIS TIME.
--- NOTE | 2025-05-09 11:35 | NUR ---
Patient sitting up in chair watching watching tv, no acute distress. Patient denies needs at this time. Call light remains in reach.
[2025-05-09] MEDS ORDERED: PHARMACY RENAL DOSE ADJUSTMENT 1 DOSE MISC PO SCH (12:00)
[2025-05-09] MEDS ORDERED: FERROUS SULFAT325 MG PO (13:14)
[2025-05-09] MEDS ORDERED: MILK OF MA400 MG/5 M PO (13:18)
[2025-05-09] MEDS ORDERED: SODIUM BICARBO650 MG PO (13:19)
[2025-05-09] MEDS ORDERED: NON-ASPIRIN PA325 MG PO (13:20)
--- NOTE | 2025-05-09 13:22 | NUR ---
medications reconciled using MARS from [facility]
--- NOTE | 2025-05-09 13:55 | NUR ---
PATIENT IN CHAIR AT THIS TIME. FLYING INSTRUCTOR CHARTED VITALS AND I&O'S. PATIENT REFUSED SHOWER BUT AGREED TO BED BATH IN ABOUT AN HOUR. CALL LIGHT WITHIN REACH, NO FURTHER NEEDS.
--- NOTE | 2025-05-09 15:08 | NUR ---
PATIENT IN CHAIR AT THIS TIME. MODEL BUILDER DISPLAY WENT INTO ROOM FOR HOURLY ROUNDS, PATIENT IS SLEEPING. CALL LIGHT WITHIN REACH, NO FURTHER NEEDS AT THIS TIME.
--- NOTE | 2025-05-09 15:37 | NUR ---
Patient sitting up in chair, intermittently taking naps, he easily wakes to verbal stimuli. Patient denies needs at this time. Personal supplies and call light within reach.
--- NOTE | 2025-05-09 16:27 | NUR ---
PATIENT IN CHAIR AT THIS TIME. SITE ACQUISITION SPECIALIST CHARTED HOURLY ROUNDS. PATIENT STATED HE WANTED A BED BATH AFTER DINNER SO HE COULD NAP. CALL LIGHT WITHIN REACH, NO FUTHER NEEDS AT THIS TIME.
--- NOTE | 2025-05-09 18:14 | NUR ---
Patient sitting up in chair, no distress, respirations non labored. Patient tolerated dinner well. No current needs per pt report. Call light within reach.
--- NOTE | 2025-05-09 18:22 | NUR ---
Patient sitting up in chair, no distress, pt reports tolerable pain. No current needs, personal supplies and call light within reach.
--- NOTE | 2025-05-09 18:38 | NUR ---
PATIENT IS IN HIS CHAIR AT THIS TIME. FILTER SCREEN CLEANER CHARTED VITALS AND I&O'S, PATIENT HAS NOT VOIDED SINCE THE LAST CHARTED OUTPUT. CALL LIGHT WITH IN REACH AND NOTHING ELSE NEEDED AT THIS TIME.
--- NOTE | 2025-05-09 19:08 | NUR ---
PATIENT IN CHAIR AT THIS TIME. THIS INFECTIOUS WASTE TECHNICIAN WENT INTO PATIENTS ROOM TO DO BED BATH ON PATIENT, PATIENT STATED WAS "WAY TOO TIRED TO DO A BED BATH TONIGHT". THIS INFECTIOUS WASTE TECHNICIAN NOTIFIED DONA GARCIA. CALL LIGHT WITHIN REACH, NO FURTHER NEEDS AT THIS TIME.
--- NOTE | 2025-05-09 21:13 | NUR ---
PT IN CHAIR, ALERT AND ORIENTED, ON ROOM AIR, DENIES C/O PAIN. PLEASANT AND COOPERATIVE. SL L H PATENT. ABD SOFT, HEA, F/C CHRONIC DRAINING CLEAR YELLOW URINE. IN CHAIR, LEGS ELEVATED. COOPERATIVE, WATCHINGT V
--- NOTE | 2025-05-09 21:17 | NUR ---
PATIENT SITTING IN CHAIR. VITAL SIGNS AND I&OS WERE DONE. CATHETER WAS EMPTIED. CALL LIGHT IN REACH AND NO FURTHER NEEDS AT THIS TIME.
--- NOTE | 2025-05-09 23:23 | NUR ---
PATIENT WAS ASSISTED TO THE BED FROM THE CHAIR BY THIS TRUCK GREASER AND RN. PATIENTS HAD A BM IN BRIEF. GOWN AND BRIEF WERE CHANGED. GORDO CARE WAS PREFORMED. WATER WAS REFILLED. PATIENTS CALL LIGHT IS IN REACH AND NO FURTHER NEEDS AT THIS TIME.
[2025-05-10] VITALS (8 sets, daily range): BP systolic 120–153; BP diastolic 59–75
--- NOTE | 2025-05-10 00:46 | NUR ---
resting, on room air, no s/sx distress, f/c patent. call light at hands reach
--- NOTE | 2025-05-10 01:40 | NUR ---
Resting, eyes closed, no s/sx distress, f/c patent
--- NOTE | 2025-05-10 02:33 | NUR ---
PATIENT IS LAYING IN BED. PATIENT HAD A BM IN BRIEF. BRIEF WAS CHANGED AND GORDO/CATHETER CARE WAS COMPLETED. VITAL SIGNS AND I&OS WERE DONE. PATIENTS CALL LIGHT IN REACH AND NO FURTHER NEEDS AT THIS TIME.
--- NOTE | 2025-05-10 03:17 | NUR ---
Resting, eyes closed, room air, no s/sx discomofrt, f/c patent. call light and fluids at bedside
[2025-05-10 05:47] LABS: BASOPHILS 0.3 % (0.2-1.2); EOSINOPHILS 4.1 % (0.8-7.0); HEMATOCRIT 28.4 % (40.1-51.0); HEMOGLOBIN 8.8 g/dL (13.7-17.5); MCH 25.9 PG (25.7-32.2); MCV 83.5 fL (79.0-92.2); NEUTROPHILS 82.9 % (34.0-67.9); PLATELET COUNT 215 K/uL (163-337)
[2025-05-10 05:57] LABS: ANION GAP 15.8 (7-21); BUN/CREATININE RATIO 19.85 (6.0-28.6); CALCIUM 8.6 mg/dL (8.5-10.1); CREATININE, SERUM 2.77 mg/dL (0.70-1.30); MAGNESIUM 2.1 mg/dL (1.8-2.4); POTASSIUM 3.8 mmol/L (3.5-5.1)
--- NOTE | 2025-05-10 06:01 | NUR ---
PATIENT LAYING IN BED. BRIEF WAS CHANGED AND GORDO CARE WAS DONE. VITAL SIGNS AND I&OS WERE DONE. CALL LIGHTIN REACH AND NO FURTHER NEEDS AT THIS TIME.
--- NOTE | 2025-05-10 06:58 | NUR ---
has slept most of this shift, on room air, no s/sx pain or distress. f/c patent
--- NOTE | 2025-05-10 07:09 | NUR ---
VERBAL REPORT RECEIVED FROM DONA FOX. PT RESTS IN BED WITH EYES CLOSED, RESP EVEN AND UNLABORED.
[2025-05-10] MEDS ORDERED: DAPTOmycin 500 MG/10 ML VIAL IV SCH ×2 (09:00)
--- NOTE | 2025-05-10 09:51 | NUR ---
PT WORKS WITH PHYSICAL THERAPY, TOLERATES THIS FAIR. PT BACK TO BED. ASSESSMENT COMPLETE. NOTED PT PASSED BM IN BREIF. PERICARE PROVIDED AND NEW BREIF DONNED. CATHETER CARE PROVIDED. BARRIER FILM SPRAY APPLIED TO BUTTOCKS. PT TOLERATED WELL. CALL LIGHT IN REACH, SCD'S ON TO BLE. NO REQUESTS AT THIS TIME. BED ALARM ON.
--- NOTE | 2025-05-10 10:08 | NUR ---
PARTIAL BED CHANGE. HELPED PT WITH CHANNEL ON TV. PT ALSO KEPT BENDING ARM WITH IV IN IT, SO IV ALARM WAS CONTINUING TO BE SET OFF. REMINDED AND TAUGHT PT TO KEEP ARM STRAIGHT. CLEANED UP ROOM, THREW AWAY TRASH IN ROOM. GOT PT FRESH ICE WATER. CALL LIGHT WITHIN REACH OF PT, PT REPORTED NEEDING NOTHING ELSE AT THIS TIME.
--- NOTE | 2025-05-10 10:48 | NUR ---
PATIENT IS ASLEEP IN BED. IV PUMP RUNNING. SCD'S ON. BED ALARM ON. CALL LIGHT WITHIN REACH.
--- NOTE | 2025-05-10 11:23 | NUR ---
PT RESTS IN BED WITH EYES CLOSED, RESP EVEN AND UNLABORED. CALL LIGHT IN REACH.
--- NOTE | 2025-05-10 13:17 | NUR ---
PT RESTS IN BED AWAKE AND ALERT, EATS LUNCH, CALL LIGHT IN REACH, NO REQUESTS AT THIS TIME.
--- NOTE | 2025-05-10 13:23 | NUR ---
PT IN BED, REFUSED TO GET INTO CHAIR, STATED HE IS MORE COMFORTABLE IN BED. PT HAS CALL LIGHT WITHIN REACH, THE TV IS ON BUT THE VOLUME IS OFF. GOT PT FRESH ICE WATER, PT REPORTED NEEDING NOTHING ELSE AT THIS TIME.
--- NOTE | 2025-05-10 13:26 | NUR ---
PT WIPED HIS OWN FACE WHEN I GOT HIM A WARM WASH CLOTH. PUT LOTION ON PATIENT'S ARMS.
--- NOTE | 2025-05-10 14:00 | NUR ---
DR. HUYNH NOTIFIED OF PT URINE OUTPUT, 100 MLS OF URINE AT MOST RECENT VOID, 200 TOTAL OUT SINCE CATHETER WAS REMOVED. DR. HUYNH DISCUSSES URINE OUTPUT AND DISCHARGE PLAN WITH PT, PER DR. HUYNH, OKAY FOR PT TO GO HOME IF HE SO DESIRES, PT STATES, "I WANT TO GO HOME."
--- NOTE | 2025-05-10 14:08 | NUR ---
GAVE PT BED BATH AND PUT LOTION ON HIS ARMS AND BACK. PT TOOK DENTURES OUT AND THIS FIRE FIGHTERS DISPATCHER BRUSHED THEM WITH TOOTHPASTE OVER THE SINK AND THEN HAD THE PT RINSE WITH MOUTHWASH AND REPLACE THE DENTURES AFTER CLEANING. GOT PT FRESH ICE WATER AND TWO JELLOS - CHANGED PT'S GOWN FOLLOWING JELLO CONSUMPTION. CALL LIGHT WITHIN REACH.
--- NOTE | 2025-05-10 16:19 | NUR ---
PT RESTS IN BED WITH EYES CLOSED, RESP EVEN AND UNLABORED.
--- NOTE | 2025-05-10 18:56 | NUR ---
PT LAYING IN BED, TV ON, VOLUME OFF, AWAKE AND ALERT. GOT PT FRESH ICE WATER. EMPTIED LERMA BAG AND RECORDED I'S & O'S. CALL LIGHT WITHIN REACH OF PT, PT REPORTS NEEDING NOTHING ELSE AT THIS TIME. PT SEEMS MORE CONFUSED THAN EARLIER IN THE DAY, REPORTED TO NURSE.
--- NOTE | 2025-05-10 20:09 | NUR ---
Pt on chair. got neb tx. Cooperative with assessment and vitals. On room air. slight crackles R lung. dry non productive cough present. abd soft, had bm's today. f/c patent. SCD's in place, LE elevated. Fresh water and call light at hands reach. slow response, denies c/o pain. warm wash cloth given. 2 SL patent
--- NOTE | 2025-05-10 21:04 | NUR ---
MEDICATED WITH TYLENOL 650MG C/O BACK PAIN AND HEADACHE. IN BED
[2025-05-11] VITALS (7 sets, daily range): BP systolic 129–143; BP diastolic 49–67
--- NOTE | 2025-05-11 00:49 | NUR ---
Resting, awakens easily, no further c/o pain. On room air, f/c patent/ SCDs on
--- NOTE | 2025-05-11 02:40 | NUR ---
Resting, eyes closed, no resp distress, f/c patent, repositions self in bed
--- NOTE | 2025-05-11 04:13 | NUR ---
resting, eyes closed, no s/sx distress, f/c patent, scds in place
[2025-05-11 05:17] LABS: BASOPHILS 0.5 % (0.2-1.2); HEMATOCRIT 26.7 % (40.1-51.0); HEMOGLOBIN 8.3 g/dL (13.7-17.5); LYMPHOCYTES 8.2 % (21.8-53.1); MCH 26.3 PG (25.7-32.2); MCHC 31.1 g/dL (32.3-36.5); MCV 84.8 fL (79.0-92.2); MONOCYTES 7.5 % (5.3-12.2); NEUTROPHILS 74.2 % (34.0-67.9); PLATELET COUNT 219 K/uL (163-337); RBC 3.15 M/uL (4.63-6.08)
[2025-05-11 05:27] LABS: ANION GAP 15.9 (7-21); BUN/CREATININE RATIO 20.15 (6.0-28.6); CALCIUM 8.5 mg/dL (8.5-10.1); CREATININE, SERUM 2.63 mg/dL (0.70-1.30); MAGNESIUM 2.1 mg/dL (1.8-2.4); POTASSIUM 3.9 mmol/L (3.5-5.1)
--- NOTE | 2025-05-11 07:06 | NUR ---
VERBAL REPORT RECEIVED FROM DONA FOX. PT RESTS IN BED WITH EYES CLOSED, RESP EVEN AND UNLABORED.
--- NOTE | 2025-05-11 09:18 | NUR ---
CATHETER CARE PROVIDED.
--- NOTE | 2025-05-11 09:47 | NUR ---
HOURLY ROUNDING. PATIENT IS IN BED. ROOM HAS BEEN TIDY AND LERMA EMPTIED AND DOCUMENTED ON THE BOARD. NO [id number] FROM PATIENT AT THIS TIME. BOARD HAS BEEN UPDATED PROPERLY.
--- NOTE | 2025-05-11 10:15 | NUR ---
Spoke with Sarbjit. He has been staying at [facility] and is agreeable to return. He denies any needs. He uses a walker and a wc. Per 829 meeting with . Pt can return today. Orders printed and given to
--- NOTE | 2025-05-11 10:35 | NUR ---
Notified by Dr. Luis, pt will need to stay another day as cultures have not returned and he needs to be sure antibiotic is correct. I texted Avis at [facility] and updated pt will not dc today.
--- NOTE | 2025-05-11 11:45 | NUR ---
PT AWAKE SITTING UP IN BED WATCHING TELEVISION. PT STATES HE IS DOING WELL, DENIES ANY NEEDS OR CONCERNS AT THIS TIME. CALL LIGHT WITHIN REACH.
--- NOTE | 2025-05-11 11:59 | NUR ---
HOURLY ROUNDING. PATIENT IS CURRENTLY IN BED. PATIENT WAS TOLD THAT HE WILL BE LEAVING SOON. I ASSURED HIM THAT WILL GET HIM READY TO GO ONCE IT'S TIME. PATIENT IS NOW SITTINFG UP GETTING READY FOR LUNCH
--- NOTE | 2025-05-11 12:59 | NUR ---
IV TO SL. PT SITS UP IN RECLINER, AWAKE AND ALERT. EATS 75% OF LUNCH, TOLERATES THIS WELL. CALL LIGHT IN REACH, NO REQUESTS AT THIS TIME.
--- NOTE | 2025-05-11 13:17 | NUR ---
RETRO UR ADMISSION REVIEW: 2 MN FOR [facility]-PER PREPARED FOODS SERVICE TEAM MEMBER MEETS INPT FOR COMPLICATED UTI WITH NEED FOR IV ABX MEDICARE INPT 05/08/25 @ 1912 ORDER MATCHES REG NO AUTH REQUIRED PER MEDICARE GUIDELINES DISCHARGE RETURN TO SNF WHEN STABLE
--- NOTE | 2025-05-11 14:03 | NUR ---
Called pts Flor LAST. UPdated, pt will most likely return to [place] tomorrow. She states pt is on State paid retirement care. She is unsure if pt has a rehabilitation case coordinator. I called and left a message for Bambi Villanueva and requested a call back if this pt does have retirement medicare. BERHANE is stating they cannot provide care for him as she works. I asked if when he is out of SNF days, if he can transition to a state paid pt at [facility].
--- NOTE | 2025-05-11 14:18 | NUR ---
Received a call from Bambi Villanueva. Sarbjit does have technician terminal and repeater care he can transition too. She spoke with his son last week and he had stated they did not want his SS to go to partial payment for placement. They would take him home. I will update Flor. He healthcare social worker is Bambi Villanueva at this time.
--- NOTE | 2025-05-11 14:22 | NUR ---
Flor LAST updated. She was unaware the spouse has spoken with [facility]. She is now stating Sarbjit can return home if needed when he has exhausted his SNF days. I gave her Flor'ys phone number.
--- NOTE | 2025-05-11 15:06 | NUR ---
PT IN RECLINER, RESTS WITH EYES CLOSED, RESP EVEN AND UNLABORED.
--- NOTE | 2025-05-11 19:30 | NUR ---
REPORT RECEIVED FROM DAY SHIFT RN. PT LYING IN BED ALERT AND ORIENTED. DENIES NEEDS. WHITE BOARD UPDATED. CALL LIGHT IN REACH.
--- NOTE | 2025-05-11 21:42 | NUR ---
v/s and i&o's completed. LERMA AND GORDO CARE DONE. PATIENT HAD LARGE SOFT BM INCONTINENT. CHANGED GOWN, DRAW SHEET, CHUX AND FRESH ATTENDS PLACED. PRIMARY RN WAS WITH PATIENT.
--- NOTE | 2025-05-11 22:17 | NUR ---
EVENING ASSESSMENT COMPLETE. SCHEDULED MEDS ADMIN PER EMAR. PT DENIES PAIN OR NAUSEA. LERMA PATENT WITH QS YELLOW URINE. SCD'S IN PLACE. PT DENIES QUESTIONS OR CONCERNS. CALL LIGHT IN REACH. BED ALARM FOR SAFETY.
[2025-05-12] VITALS (9 sets, daily range): BP systolic 131–147; BP diastolic 62–72
--- NOTE | 2025-05-12 00:17 | NUR ---
PT RESTING IN BED WITH EYES CLOSED. RESPIRATIONS EVEN. CALL LIGHT IN REACH.
--- NOTE | 2025-05-12 01:47 | NUR ---
In with pt for IV pump alarming infusion complete. IV flushed with 5ml NS and S/L, alcohol cap placed. Pt denies any needs at this time. Primary RN notified.
--- NOTE | 2025-05-12 03:19 | NUR ---
PT AWAKE IN BED. DENIES NEEDS AT THIS TIME. REPORTS HE IS COMFORTABLE AT THIS TIME. CALL LIGHT IN REACH.
[2025-05-12 05:44] LABS: BASOPHILS 0.6 % (0.2-1.2); EOSINOPHILS 9.9 % (0.8-7.0); HEMATOCRIT 26.6 % (40.1-51.0); HEMOGLOBIN 8.5 g/dL (13.7-17.5); LYMPHOCYTES 12.4 % (21.8-53.1); MCH 26.2 PG (25.7-32.2); MCV 82.1 fL (79.0-92.2); MONOCYTES 8.9 % (5.3-12.2); NEUTROPHILS 67.4 % (34.0-67.9); PLATELET COUNT 241 K/uL (163-337); RBC 3.24 M/uL (4.63-6.08)
--- NOTE | 2025-05-12 05:44 | NUR ---
LAB IN FOR MORNING DRAW. VS AND I&O OBTAINED. MARIA GUADALUPE PATENT WITH QS CLEAR YELLOW URINE. PT DENIES NEEDS. CALL LIGHT IN REACH.
[2025-05-12 06:03] LABS: ALBUMIN 2.3 g/dL (3.4-5.0); ALBUMIN/GLOBULIN RATIO 0.46 (1.1-2.4); ANION GAP 14.2 (7-21); BILIRUBIN, TOTAL 0.3 mg/dL (0.2-1.0); BUN/CREATININE RATIO 22.13 (6.0-28.6); CREATININE, SERUM 2.53 mg/dL (0.70-1.30); MAGNESIUM 2.2 mg/dL (1.8-2.4); POTASSIUM 4.2 mmol/L (3.5-5.1); PROTEIN, TOTAL 7.3 g/dL (6.4-8.2)
--- NOTE | 2025-05-12 07:35 | NUR ---
MORNING REPORT RECIEVED FROM DONA KUMAR. PT HAD NO ACUTE EVENTS IN THE NIGHT. PT IS LAYING IN BED WITH EYES CLOSED CHEST RISE EQUAL BILAT AT THIS TIME. PT SHOWS NO SIGNS OR SYMPTOMS OF DISCOMFORT AT THIS TIME, PT CALL LIGHT IN REACH.
--- NOTE | 2025-05-12 08:10 | NUR ---
HOURLY ROUNDING. PATIENT IS SITTING IN BED NO REQUEST AT THIS TIME
--- NOTE | 2025-05-12 08:55 | NUR ---
PT SITTING UP IN BED EATING BREAKFAST AT THIS TIME. PT ALERT AND ORIENTED X4 AND HAS NO CURRENT CONCERNS AT THIS TIME. PT HAS CALL LIGHT IN REACH.
--- NOTE | 2025-05-12 09:27 | NUR ---
SPOKE WITH NURSING CHAIRMAN & CEO, NO ONE TO PLACE MIDLINE UNTIL TOMORROW 05/13/25. CALLED AND SPOKE WITH CALEB AT [facility]. THEY CAN TAKE PATIENT BACK TODAY WITH PERIPHERAL LINE AND CAN RETURN TOMORROW OUTPATIENT FOR MIDLINE PLACEMENT. DR. HUYNH NOTIFIED.
--- NOTE | 2025-05-12 10:33 | NUR ---
RECIEVED CALL FROM CALEB AT [facility]. STATES PATIENT DOES NEED MIDLINE PRIOR TO RETURN TO FACILITY. COLLECTION SYSTEMS TECHNICIAN UPDATED. DR. HUYNH UPDATED.
[2025-05-12] MEDS ORDERED: ERTAPENEM1 GM IM (10:40)
--- NOTE | 2025-05-12 11:11 | NUR ---
PT LAYING IN BED WITH EYES CLOSED CHEST RISE EQUAL BILAT. PT HAS CALL LIGHT IN REACH AT THIS TIME AND CONTINUES TO VOID CLEAR YELLOW URINE AT THIS TIME VIA LERMA CATH.
--- NOTE | 2025-05-12 12:36 | NUR ---
PT ASSISTED UP IN BED TO EAT LUNCH, PT LERMA IN PLACE AND CONTINUES TO VOID CLEAR YELLOW URINE. PT HAS NO CURRENT CONCERNS AT THIS TIME AND HAS CALL LIGHT IN REACH.
--- NOTE | 2025-05-12 14:09 | NUR ---
PT LAYING IN BED, PT EASILY AROUSABLE TO SOUND OF VOICE AND IS ALERT AND ORIENTED X4. PT HAS NO CURRENT CONCERNS AT THIS TIME AND HAS CALL LIGHT IN REACH.
--- NOTE | 2025-05-12 14:46 | NUR ---
HOURLY ROUNDING. CHECKED ON PATIENT, HE DIDNT REQUEST ANYTHING- I OFFERED ICE CREAM, ICE CREAM WAS GIVEN. PATIENT WAS THANFUL. CHECKED LERMA TO MAKE SURE THERE IS NO KINKS. NO REQUEST FROM PATIENT AT THIS TIME
--- NOTE | 2025-05-12 15:31 | NUR ---
PT LAYING IN BED AT THIS TIME, PT IS WATCHING TV AND DENIES ANY NEEDS AT THIS TIME. PT HAS CALL LIGHT IN REACH.
--- NOTE | 2025-05-12 16:44 | NUR ---
PT LAYING IN BED WITH EYES CLOSED CHEST RISE EQUAL BILAT AT THIS TIME, PT HAS CALL LIGHT IN REACH IF NEEDED.
--- NOTE | 2025-05-12 18:22 | NUR ---
PT LAYING IN BED AT THIS TIME WATCHING TV. PT DENIES NEEDS, PT LERAM CATH DRAINING CLEAR/YELLOW URINE AT THIS TIME CALL LIGHT IN REACH.
--- NOTE | 2025-05-12 19:27 | NUR ---
REPORT RECEIVED FROM DAY SHIFT RN. PT LYING IN BED ALERT AND ORIENTED. DENIES NEEDS. WHITE BOARD UPDATED. CALL LIGHT IN REACH.
--- NOTE | 2025-05-12 21:01 | NUR ---
EVENING ASSESSMENT COMPLETE. SCHEDULED MEDS ADMIN PER EMAR. PT DENIES PAIN OR NAUSEA. DENIES SOB. LERMA PATENT WITH QS YELLOW URINE. SCD'S IN PLACE. PT DENIES QUESTIONS OR CONCERNS. CALL LIGHT IN REACH.
--- NOTE | 2025-05-12 23:58 | NUR ---
IV PUMP ALARMING. ISSUE RESOLVED. DRESSING ON IV IN LEFT HAND NOTED TO BE LOOSE. IV DC'D WNL. TIP INTACT. PT DENIES NEEDS. CALL LIGHT IN REACH. BED ALARM FOR SAFETY.
[2025-05-13] VITALS (7 sets, daily range): BP systolic 148–167; BP diastolic 68–80
--- NOTE | 2025-05-13 03:15 | NUR ---
PT RESTING IN BED WITH EYES CLOSED. RESPIRATIONS EVEN. CALL LIGHT IN REACH.
--- NOTE | 2025-05-13 05:30 | NUR ---
PT AWAKE IN BED. VS AND I&O OBTAINED. MARIA GUADALUPE PATENT WITH QS YELLOW URINE. PT DENIES NEEDS. CALL LIGHT IN REACH.
--- NOTE | 2025-05-13 07:19 | NUR ---
MORNING REPORT RECIEVED FROM DONA KUMAR. PT HAD NO ACUTE EVENT OVER NIGHT AND IS RESTING COMFORTABLY IN BED AT THIS TIME. PT HAS NO NEEDS AND HAS CALL LIGHT IN REACH AT THIS TIME.
--- NOTE | 2025-05-13 10:57 | NUR ---
PT RESTING IN BED. PT AWAKE AND EYES OPEN. PT JUST LAYING IN BED, NO TV ON, BLINDS OPEN. PT REPORTS LEFT SIDE TO MIDLINE PAIN IN STOMACH AREA, REPORTED TO NURSE. GOT PT FRESH ICE WATER, EMPTIED LERMA. CALL LIGHT WITHIN REACH, PT NEEDING NOTHING ELSE AT THIS TIME.
--- NOTE | 2025-05-13 11:19 | NUR ---
PT LAYING IN BED AT THIS TIME, PT DENEIS ANY NEEDS CURRENTLY AND HAS CALL LIGHT IN REACH.
--- NOTE | 2025-05-13 13:33 | NUR ---
PT IS IN BED, [employer] ARCHITECT TOOK DENTURES AND BRUSHED THEM, THEN RETURNED TO PT AND PT PLACED CLEAN DENTURES IN MOUTH. PARTIAL BED BATH, CLEANED PT'S ARMS, LOWER LEGS, FACE, NECK, BACK, AND CHEST. PUT LOTION ON ARMS AND BACK. PT REQUESTED BACK RUB, COMPLETED.
--- NOTE | 2025-05-13 13:35 | NUR ---
PT IS CURRENTLY LAYING NI BED AT THIS TIME WITH DONA REESE IN ROOM PLACING PT MIDLINE FOR CONTINUED ABX ADMIN POST DC. PT TOLERATING WELL WITH NO CURRENT CONCERNS AT THIS TIME.
--- NOTE | 2025-05-13 14:07 | NUR ---
CALLED TO SCHEDULE WHEELCHAIR VAN FOR TRANSPORT TO [facility] AT 4:30 PM
--- NOTE | 2025-05-13 14:18 | NUR ---
NURSING STATE [employer] DEPUTY DIRECTOR NOTIFIES IV THERAPY TEAM OF NEED FOR MIDLINE FOR 2 WEEKS OF IV ANTIBIOTICS. PATIENT IS INTERVIEWED AND GIVES VERBAL CONSENT FOR MIDLINE PLACEMENT. SITE RITE ULTRASOUND USED TO VISUALIZE THE VENOUS STRUCTURES OF THE LEFT ARM. BASILIC VEIN IS NOT LARGE ENOUGH TO ACCOMODATE 18 GAUGE LINE. BRACHIAL VEIN IS VISUALIZED. 18 GAUGE LINE IS NOTED TO CONSUME 31% OF VESSEL DIAMETER. PRINTER ON SITE RITE ULTRASOUND NOT FUNCTIONING. MEASUREMENT NOT PRINTED. 18 GAUGE, 10 CM MIDLINE PLACED IN LEFT UPPER ARM, BRACIAL VEIN, USING STERILE TECHNIQUE. 1% LIDOCAINE USED AND PATIENT TOLERATES THIS PROCEDURE IT ITS ENTIRETY WELL. VERBAL REPORT GIVEN TO SAY GOULD RN. BED IS RETURNED TO THE LOWEST POSITION AND CALL LIGHT IS WITHIN REACH.
--- NOTE | 2025-05-13 14:23 | NUR ---
PT IS CURRENTLY LAYING IN BED WITH EYES CLOSED CHEST RISE EQUAL BILAT AT THIS TIME, PT HAD A MIDLINE PLACED IN THE LEFT UPPER ARM AND TOLERATED WELL. PT HAS CALL LIGHT IN REACH AND IS EXPECTED TO BE DC'D AT 1630 TO [facility].
--- NOTE | 2025-05-13 14:41 | NUR ---
PT IS RESTING IN BED, FOLLOWING AN ULTRASOUND IV PLACEMENT. CALL LIGHT IS ON BED WITH PT. GOT PT FRESH ICE WATER. PT REPORTED NEEDING NOTHING ELSE AT THIS TIME.
--- NOTE | 2025-05-13 15:40 | NUR ---
PT SITTING UP IN BED AT THIS TIME, PT IS CURRENTLY GETTING DRESSED WITH ASSISTANCE FROM [employer] REPRESENTATIVE AT THIS TIME. PT HAS NO CURRENT CONCERNS AND CALL LIGHT IS IN REACH.
--- NOTE | 2025-05-13 16:11 | NUR ---
PT IN BED WITH HEAD UP, AWAKE AND ALERT. CHANGED THE PT'S GOWN AND ADDED A ROBE - TRANSPORT FROM [facility] WILL BE HERE AT 4:30. PT HAS FRESH ICE WATER AND CLEAN SOCKS ALSO. PUT LOTION ON PT'S ARMS AND LEGS AFTER WIPING WITH A WARM WASH CLOTH. COMBED PT'S HAIR. CALL LIGHT ON BED WITH PT. PT REPORTS NEEDING NOTHING ELSE AT THIS TIME.
--- NOTE | 2025-05-13 16:33 | NUR ---
RECEIVED CALL FROM [facility] REGARDING ERTAPENEM. ORDER SENT STATES IM, VERIFIED MEDICATION IS TO BE IV PER DR. HUYNH'S DC SUMMARY AND UPDATED ORDER SENT TO [facility].
--- NOTE | 2025-05-13 16:39 | NUR ---
PT DC'D AND LEFT VIA [employer]. PT IS TO RETURN TO [facility], AND HAS NO CURRENT CONCERNS. PT CARE PACKET GIVEN TO [employer]SULT[employer]. AND REPORT TO [facility] TO FOLLOW VIA PHONE.
--- NOTE | 2025-05-13 17:07 | NUR ---
NURSE REPORT GIVEN TO VIRGILIO AT [facility]. VIRGILIO HAD NO FURTHER QUESTIONS AT THIS TIME.
== END 2025-05-13 16:38 | DRG 698 ==
LOC: ED 12:10 → MS 19:12
PROVIDERS: Emergency Medicine; Family Medicine; ADMIT Student in an Organized Health Care Education/Training Program; ATTEND Student in an Organized Health Care Education/Training Program
PROC: 0T2BX0Z Change Drainage Device in Bladder, External Approach (ICD-10-PCS; principal; 2025-05-08)
DX: T83.511A Infection and inflammatory reaction due to indwelling urethral catheter, initial encounter (principal); A41.9 Sepsis, unspecified organism; N32.1 Vesicointestinal fistula; N39.0 Urinary tract infection, site not specified; I25.10 Atherosclerotic heart disease of native coronary artery without angina pectoris; J44.9 Chronic obstructive pulmonary disease, unspecified; I50.9 Heart failure, unspecified; R54 Age-related physical debility; N18.9 Chronic kidney disease, unspecified; B96.89 Other specified bacterial agents as the cause of diseases classified elsewhere; K90.0 Celiac disease; I25.2 Old myocardial infarction; Z87.891 Personal history of nicotine dependence; Z86.73 Personal history of transient ischemic attack (TIA), and cerebral infarction without residual deficits; Z85.51 Personal history of malignant neoplasm of bladder; Z95.4 Presence of other heart-valve replacement; Z95.0 Presence of cardiac pacemaker; Z98.890 Other specified postprocedural states; Z79.51 Long term (current) use of inhaled steroids; Z79.899 Other long term (current) drug therapy; Y84.6 Urinary catheterization as the cause of abnormal reaction of the patient, or of later complication, without mention of misadventure at the time of the procedure
CPT/HCPCS: 36415; 36569; 51702; 71045; 74176; 80048; 80053; 81001; 83605; 83735; 84484; 85025; 85060; 85610; 85730; 87040; 87077; 87088; 87186; 93005; 93010; 94640; 94760; 94799; 97110; 97161; 97166; 97530; 99285-25; A9270; J0878; J1650; J2185; J7605

== ENCOUNTER 2025-05-21 11:21 | Emergency (ER) | payer MEDICARE, OTHER ==
[~2025-05-21] VITALS: Ht 188 cm; Wt 60.1 kg
[~2025-05-21 11:21] MED LIST changes: +ERTAPENEM1 GM IM; +FERROUS SULFAT325 MG PO; +MILK OF MA400 MG/5 M PO; +NON-ASPIRIN PA325 MG PO; +SODIUM BICARBO650 MG PO
[2025-05-21] MEDS ORDERED: SODIUM CHLORIDE 0.9% 500 ML IV ONE (12:00)
[2025-05-21 12:33] LABS: BASOPHILS 0.9 % (0.2-1.2); EOSINOPHILS 4.4 % (0.8-7.0); LYMPHOCYTES 14.3 % (21.8-53.1); MCH 25.6 PG (25.7-32.2); MCHC 32.0 g/dL (32.3-36.5); MCV 80.1 fL (79.0-92.2); MONOCYTES 7.8 % (5.3-12.2); NEUTROPHILS 72.0 % (34.0-67.9); RBC 3.32 M/uL (4.63-6.08)
[2025-05-21 12:48] LABS: ALT (SGPT) 12.0 U/L (14-59); AST (SGOT) 12.0 U/L (15-37); GLOMERULAR FILTRATION RATE,EST 5.0 mL/min (>60); PROTEIN, TOTAL 7.9 g/dL (6.4-8.2); UREA NITROGEN 133.0 mg/dL (7-18)
[2025-05-21] MEDS ORDERED: SODIUM CHLORIDE 0.9% 1,000 ML IV ONE (13:00)
[2025-05-21 17:51] LABS: GLOMERULAR FILTRATION RATE,EST 6.0 mL/min (>60); UREA NITROGEN 128.0 mg/dL (7-18)
[2025-05-21] MEDS ORDERED: SODIUM CHLORIDE 0.9% 1,000 ML IV SCH (18:45)
[2025-05-21 21:00] VITALS: BP 162/76
--- NOTE | 2025-05-23 09:58 | EKG ---
[facility] [address] [place], [place] [address] Signed Normal sinus rhythm Right bundle branch block Abnormal ECG When compared with ECG of 08-MAY-2025 12:28, No significant change was found Confirmed by Tad Boswell MD ([id number]) on 05/23/2025 9:58:53 AM Electronically Signed By: TAD BOSWELL MD 05/23/25 0958 PATIENT NAME: RAMOS SANTOS RIVKA Electrocardiogram DATE OF : 43 PHYSICIAN: TAD BOSWELL MD REPORT #: [id number] REPORT IS CONFIDENTIAL AND NOT TO BE RELEASED WITHOUT AUTHORIZATION
== END 2025-05-21 21:04 | disposition short-term general hospital (02) ==
LOC: ED 11:21
PROVIDERS: Emergency Medicine
DX: N17.9 Acute kidney failure, unspecified (principal); N32.1 Vesicointestinal fistula; N39.0 Urinary tract infection, site not specified; I25.2 Old myocardial infarction; F17.200 Nicotine dependence, unspecified, uncomplicated; Z79.899 Other long term (current) drug therapy
CPT/HCPCS: 36415; 74176; 80048; 80053; 83735; 85025; 93005; 93010; 96360; 96361; 99285-25; J7030; J7040